=== PATIENT | female | born 1945 | race Caucasian/White ===

== ENCOUNTER → 2018-02-27 15:38 | Outpatient (CLI) | payer BC, MEDICARE, SELFPAY ==
--- NOTE | 2018-02-27 15:42 | MM_ITS ---
MM Dig screening mamm BI w/CAD CAD Screening COMPARISON: Digital mammograms with CAD 02/22/2016 and 02/23/2017 INDICATION: There is a history of breast cancer patient paternal grandmother diagnosed after menopause. There has been a previous biopsy on each breast for benign disease. TECHNIQUE: Standard CC and MLO images were obtained. R2 CAD reviewed. FINDINGS: Prominent diffuse fiber glandular densities are seen throughout both breasts. There are 2 mole markers right breast and a single mole marker left breast. There is a biopsy clip in each breast. There is moderate post biopsy scarring associated with a biopsy clip right breast. There is no new or suspicious lesion in either breast and no suspicious microcalcifications. IMPRESSION: Moderately dense parenchymal pattern with moderate post biopsy scarring right breast which is stable and no suspicious lesion seen BI-RADS Category: 2 Benign Finding(s) RECOMMENDED FOLLOW-UP: 1YR - 1 YEAR FOLLOW-UP (A letter has been sent to the patient regarding results of the study.)
== END ==
PROVIDERS: PCP Family Medicine; Visit Provider Obstetrics & Gynecology
DX: Z12.31 Encounter for screening mammogram for malignant neoplasm of breast (principal); Z01.419 Encounter for gynecological examination (general) (routine) without abnormal findings
CPT/HCPCS: 77067

== ENCOUNTER → 2018-04-23 14:43 | Outpatient (CLI) | payer BC, MEDICARE, SELFPAY ==
--- NOTE | 2018-04-23 14:45 | CA_ITS ---
PROCEDURE: 2-D M-mode and color Doppler study INDICATIONS FOR THE TEST: Chest pain COPD Heart Murmur Tobacco Smoking Palpitations Fatigue Syncope Edema Hypertension+Diabetes Mellitus Rheumatic Fever SOB+ROBERTS Obesity Hyperlipidemia+ Family History HD Additional History tachycardia PATIENT INFORMATION HEIGHT: 66 WEIGHT:190 GENDER: Female B/P:113/71 2-D/M-MODE INTERPRETATION: 2-D MEASUREMENTS OBSERVED VALUES IN CMS Right Ventricular Dimension (RVDd) 1.5 Interventricular Septum (Thickness)(IVsd) 0.9 Left Ventricular Internal Dimensions(LVIDd) 5.4 Left Ventricular Posterior Wall (Thickness)(LVPWd) 0.8 Aortic Root 2.9 Aortic Cusp Separation 1.9 Left Atrial Dimensions (LAD) 3.6 2D 1. Left atrium is mildly enlarged, left ventricle is normal size, mild concentric left ventricular hypertrophy, visually estimated ejection fraction 55% with no regional wall motion abnormality. 2. The right atrium and right ventricle are mildly enlarged with normal contractility. 3. The aortic valve is minimally thickened and calcified leaflet continue to display good mobility. 4. The mitral and tricuspid valve are grossly normal. 5. The pulmonic valve is poorly visualized. 6. No significant pericardial effusion noted. DOPPLER INTERROGATION: Doppler interrogation of the aortic, mitral and tricuspid valvular presence of mild mitral and tricuspid regurgitation, tricuspid regurgitation jet velocity is inadequate for calculation of the right ventricular systolic pressure, grade 1 diastolic dysfunction seen without tissue Doppler evidence of raised left atrial pressure. CONCLUSION: 1. Mildly enlarged left atrium, normal left ventricular size, mild concentric left ventricular hypertrophy, visually estimated ejection fraction 55% with no regional wall motion abnormality, grade 1 diastolic dysfunction seen without tissue Doppler evidence of raised left atrial pressure. 2. Mild mitral and tricuspid regurgitation 3. No significant pericardial effusion noted.
== END ==
PROVIDERS: PCP Family Medicine; Visit Provider Internal Medicine
DX: R00.0 Tachycardia, unspecified (principal); R06.02 Shortness of breath
CPT/HCPCS: 93306

== ENCOUNTER → 2018-07-19 13:39 | Outpatient (CLI) | payer BC, MEDICARE, SELFPAY ==
--- NOTE | 2018-07-19 13:47 | XR_ITS ---
XR knee LT 4V HISTORY: ITS.REASON: knee pain/ 4 view weightbearing ORDERING PHYSICIAN: Ebonie Mclaughlin MD PATIENT AGE: 72 years COMPARISON: 06/15/2011 FINDINGS: There are moderate to severe osteoarthritic changes of the medial compartment with loss of the joint space and osteosclerosis. There is mild comparison angulation of the tibia with mild lateral tibial subluxation. There are mild osteoarthritic changes of the patellofemoral joint. No fracture or dislocation. No lytic or blastic change. There is some mild mixed sclerosis and lucency of the medial femoral condyle subarticular region IMPRESSION: Severe osteoarthritis of the medial compartment mainly manifested by loss of joint space which has progressed compared to the previous exam
--- NOTE | 2018-07-19 13:47 | XR_ITS ---
XR knee RT 4V HISTORY: Knee pain ITS.REASON: knee pain/weigh bearing views ORDERING PHYSICIAN: Ebonie Mclaughlin MD PATIENT AGE: 72 years COMPARISON: None FINDINGS: There are severe osteoarthritic changes of the medial compartment with loss of joint space. There is mild osteosclerosis of the tibial plateau medially and there is mild lateral tibial subluxation as well as varus angulation of the tibia. Minimal osteoarthritic change of the medial compartment and patellofemoral joint. 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
== END ==
PROVIDERS: PCP Family Medicine; Visit Provider Orthopaedic Surgery
DX: M25.561 Pain in right knee (principal); M25.562 Pain in left knee
CPT/HCPCS: 73564

== ENCOUNTER → 2018-07-29 12:38 | Outpatient (CLI) | payer BC, MEDICARE, SELFPAY ==
--- NOTE | 2018-07-29 13:02 | XR_ITS ---
XR foot wt bearing RT 3V HISTORY: Foot pain burning and stinging ITS.REASON: 3 views WB ORDERING PHYSICIAN: Ebonie Mclaughlin MD PATIENT AGE: 72 years COMPARISON: None FINDINGS: There is mild hallux valgus with mild osteoarthritic change of the first metatarsophalangeal joint with bunion formation and bony hypertrophy of the distal aspect of the first metatarsal. There is mild pes planus. There is a small calcaneal spur. No fracture or dislocation. No lytic or blastic change. IMPRESSION: 1. Hallux valgus with bunion formation and osteoarthritis of the first MTP joint 2. Pes planus
== END ==
PROVIDERS: PCP Family Medicine; Visit Provider Orthopaedic Surgery
DX: M79.671 Pain in right foot (principal)
CPT/HCPCS: 73630

== ENCOUNTER → 2019-02-26 06:37 | Outpatient (CLI) | payer BC, MEDICARE, SELFPAY ==
--- NOTE | 2019-02-26 | CA_ITS ---
APPROVED REPORT Exam: Pharmacologic Technologist: Sarah Wheeler Ht: 5 ft 6 in Wt: 189 lbs BSA: 1.95 m2 HR: 63 bpm BP: 137/82 mmHg Indications: Fatigue, Stenosis (bilat), Shortness of Breath Medical History Medications: Aspirin,,,,, Simvastatin,,,,, Multi Vitamin,,,,, Estradiol,,,,, MeLOXICAM,,,,, BisOPROLOL,,,,, Stress Test Details Test: LEXISCAN HR Resting HR: 71 bpm Max Heart Rate (APMHR): 149 bpm Max HR Achieved: 100 bpm Target HR (85% APMHR): 126 bpm % of APMHR: 67 Recovery HR: 82 bpm BP Resting BP: 137.0/82.0 mmHg Max BP: 153.0/83.0 mmHg Recovery BP: 134.0/76.0 mmHg ECG Clinical Exercise duration: 04:02 min Highest Stage Achieved: Exercise capacity: 1.0 METs Stress ECG Conclusion Resting ECG: Normal sinus rhythm, PAC, right axis deviation. Symptoms: Chest heaviness, malaise. Arrhythmias/Ectopy: None ST-T Changes: NS ST-T changes inferiorly and laterally. Conclusion: Unremarkable Lexiscan stress. Myoview images reported separately. Test Summary . . Myoview Injected . . . . Stop exercise at 04:02 . . . . Electronically signed by : Sharad Tobin, 02/27/2019 15:19:17
--- NOTE | 2019-02-26 06:37 | CA_ITS ---
APPROVED REPORT Center Administrator: Nicki Hicks RVT Laterality: Bilateral Study Quality: Good Indications: dizziness Risk Factors Hypertension: Hyperlipidemia Doppler Spectral Velocity Analysis ECA (R) 63.30/8.20 cm/s ECA (L) 145.00/42.20 cm/s dICA (R) 82.00/26.00 cm/s dICA (L) 77.50/23.70 cm/s Moy (R) 63.40/19.00 cm/s Moy (L) 93.40/29.40 cm/s pICA (R) 71.10/20.60 cm/s pICA (L) 61.20/19.50 cm/s dCCA (R) 79.70/14.60 cm/s dCCA (L) 76.30/13.70 cm/s pCCA (R) 66.00/17.10 cm/s pCCA (L) 78.80/13.70 cm/s Vert (R) 47.00/16.40 cm/s Vert (L) 50.20/11.90 cm/s ICA/CCA 1.03 ICA/CCA 1.22 Findings Study suggests less than 20% stenosis of the bilateral internal cartoid arteries unchanged from the 02/22/17 study. Tortuous cartoid arteries bilateral. Antegrade flow seen bilateral vertebral arteries. Bilateral thyroid nodules seen. Conclusion No increased velocities to suggest hemodynamically significant stenosis in either internal carotid artery. Electronically signed by : Italo Dickson MD 02/28/2019 17:12:01
--- NOTE | 2019-02-26 06:43 | NM_ITS ---
APPROVED REPORT Exam: Nuclear Stress Test Indication: SOB, Fatigue, Dizziness, HTN, Family history Patient Location: Outpatient Stress Tech: Sarah Wheeler NM Tech:Dori Nunez, ARRT, RT (R)(N) Ht: 5 ft 6 in Wt: 189 lbs Bra Size: 38C BSA: 1.95 m2 BMI: 30.5 History: SOB, Fatigue, Dizziness, HTN, Family history Procedure: Patient received a 0.4 mg of intravenous Lexiscan, resting heart rate 63 bpm, resting blood pressure 137/82 mmHg, with Lexiscan maximum heart rate achived was 98 bpm which is Less than 85 % of the maximum predicted heart rate and blood pressure was 148/84 mmHg. Electrocardiogram Resting electrocardiogram showed sinus rhythm, with Lexiscan less than 1.[address] segment depression noted from the baseline EKG. The EKG portion of the Lexiscan Myoview is nondiagnostic. Cardiac Stress and Resting SPECT Images: Cardiac Stress and Resting SPECT images were obtained using technetium 99m Myoview 32.2 mCi stress and 10.80 mCi at rest. Gated SPECT with analysis of segmental wall motion and calculation of the ejection fraction also done. Cardiac stress and resting SPECT images show mild fixed defect in the anterior wall with normal contracted gated SPECT is likely secondary to soft tissue attenuation, no reversible ischemia seen, computer derived ejection fraction is over 65% with no regional wall motion abnormality, right ventricle is normal size and contractility. Conclusion: 1. The EKG portion of the Lexiscan Myoview is nondiagnostic. 2. No scintigraphic evidence of reversible ischemia seen, computer derived ejection fraction is over 65% with no regional wall motion abnormality, right ventricle is normal size and contractility. 3. Normal Lexiscan Myoview study. Electronically signed by : Sharad Tobin, 02/27/2019 15:21:33
--- NOTE | 2019-02-26 07:49 | HMH.ITSHM ---
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 []BISOPROLOL MELOXICAM SIMVASTATIN ESTRADIOL ASA MULTIVITAMIN
== END ==
PROVIDERS: PCP Family Medicine; Visit Provider Urology
DX: I65.23 Occlusion and stenosis of bilateral carotid arteries (principal); I10 Essential (primary) hypertension; R42 Dizziness and giddiness; R53.83 Other fatigue
CPT/HCPCS: 78452; 93017; 93880; A9502; J2785

== ENCOUNTER → 2019-03-06 08:17 | Outpatient (CLI) | payer BC, MEDICARE, SELFPAY ==
--- NOTE | 2019-03-06 08:18 | MM_ITS ---
PROCEDURE: MM DIG SCREENING MAMM BI W/CAD CLINICAL INDICATION: screening mammogram There is a history of breast cancer in patient's paternal grandmother diagnosed after menopause. There has been a previous biopsy on each breast for benign disease. COMPARISON: [facility] DIG MAMM-SCREEN TOO from 02/22/2016 [facility] DIG MAMM-SCREEN TOO W/CAD from 02/23/2017 [facility] MM Dig screening mamm BI w/CAD from 02/27/2018 TECHNIQUE: Standard CC and MLO images were obtained. R2 CAD reviewed. FINDINGS: Prominent diffuse somewhat heterogenic fibroglandular densities are seen throughout both breasts. Findings are fairly symmetrical bilaterally. There is a biopsy clip in each breast. There are mole markers on each breast. There is no suspicious lesion and no suspicious microcalcifications. IMPRESSION: Diffusely dense parenchymal pattern with no suspicious lesions seen BI-RAD Category: 2 Benign Finding(s) FOLLOW-UP: 1YR 1 Year Follow-up (A letter has been sent to the patient regarding results of the study.) Dictated by: Dr. Talon Hugo MD 03/11/2019 10:[address] Talon Hugo MD in [place] 03/11/2019 10:37
== END ==
PROVIDERS: PCP Family Medicine; Visit Provider Obstetrics & Gynecology
DX: Z12.31 Encounter for screening mammogram for malignant neoplasm of breast (principal)
CPT/HCPCS: 77067

== ENCOUNTER → 2019-03-10 15:04 | Outpatient (CLI) | payer BC, MEDICARE, SELFPAY ==
--- NOTE | 2019-03-10 15:05 | XR_ITS ---
PROCEDURE: XR DEXA AXIAL SKELETON CLINICAL HISTORY: post menopausal, arthritis in both knees COMPARISON: BONE3 BONE DENSITOMETRY(HIP:LT SPINE from 03/01/2015 FINDINGS: The average BMD lumbar spine is 1.460 g per cm squared and the T-score is 3.8. The previous T-score a DEXA scan 03/01/2015 was 3.1. Bilateral hips: The total BMD right hip is 0.992 grams/centimeter sq with a T-score 0.4 and the right femoral neck is 0.812 grams/centimeter sq with a T-score of -0.3. The total BMD left hip is 0.893 g per cm sq with a T-score -0.4 and the left femoral neck is 0.844 grams/centimeter squared with T-score 0.0 IMPRESSION: Normal exam lumbar spine with slight interval improvement from previous study, normal values for bilateral hips slight interval improvement from the previous study Dictated by: Dr. Talon Hugo MD 03/11/2019 09:[address] Talon Hugo MD in [place] 03/11/2019 09:11
== END ==
PROVIDERS: PCP Family Medicine; Visit Provider Obstetrics & Gynecology
DX: Z78.0 Asymptomatic menopausal state (principal)
CPT/HCPCS: 77080

== ENCOUNTER → 2019-04-22 14:08 | Outpatient (POV) | payer BC, MEDICARE, SELFPAY | PROVIDERS: Visit Provider Dermatology | DX: Z00.00 Encounter for general adult medical examination without abnormal findings (principal) ==

== ENCOUNTER → 2019-09-22 14:21 | Outpatient (CLI) | payer BC, MEDICARE, SELFPAY ==
[2019-09-22 18:41] LABS: Coronavirus 19 IgG Antibody Negative (Negative); Coronavirus 19 IgM Antibody Negative (Negative)
== END ==
PROVIDERS: Visit Provider Surgery
DX: Z01.818 Encounter for other preprocedural examination (principal)
CPT/HCPCS: 36415; 86328

== ENCOUNTER 2019-09-23 08:38 | Day surgery (SDC) | payer BC, MEDICARE, SELFPAY ==
[2019-09-19 12:19] VITALS: BMI 31.4
[2019-09-23 08:58] VITALS: BP 142/78; PULSE 81; RESP 16; TEMP 36.6; O2SAT 98
--- NOTE | 2019-09-23 09:05 | HMH.ANESCL ---
[facility] Anesthesia Checklist - Patient Identification Patient Identification: Arm Band, Verbal (Name & ) - Structural Data Admitted From: Home Planned Operative Procedure/s: colon Consent for Planned Operative Procedure(s) Verified: Yes Verified Documents: History and Physical - NPO Status Verified Time NPO: 00:00 - Chart Verification Results Verified: CBC, BMP - Additional verifications Patient : No Anesthesia Reactions: No Hx Blood Transfusions: No Blood Transfusion Reaction: No Cephalosporin Allergy: No Previous Colonoscopy: Yes - Cardiovascular Assessment Heart Sounds: S1 & S2 Pulse Strength: Baseline Pulse Rhythm: Regular Peripheral Edema: No - Airway Assessment C-Spine Mobility Assessed: Yes TMJ Mobility Assessed: Yes Dentition: Good Dentition - Neurological Assessment Level of Consciousness: Awake, Alert, Appropriate Hx Seizures: No Numbness or tingling in extremities: No - Anesthesia Plan Anesthesia Risk discussed: Yes Anesthesia Plan: Verified ASA Class: II Anesthesia Type: MAC [facility] History I have reviewed the patient's past medical history: Yes Medical History: Reports:: Hyperlipidemia, Hypertension, Lung Disease Denies:: Cancer, Diabetes Mellitus Type 1, Diabetes Mellitus Type 2, Internal Pacemaker, MRSA, Seizures *Have you ever received a pneumonia vaccine?: No *Have you received a flu vaccine this season?: No Other Medical History: Reports: Arthritis, Other Anesthesia experience/problems:: none Laterality Cases: Bilateral: Tonsillectomy Other Surgeries: Yes: Appendectomy, Cardiac Catheterization, Colonoscopy, Hysterectomy-Total, Other. No: Pacemaker Amputation: No Fractures: No - *Social History Last grade of school completed: High school graduate Smoking Status: Never smoker Alcohol Intake: never Substance Use Type: denies use *Occupational Status:: employed Housing: house Household Members: spouse *Travel in the last 8 weeks: None Family Hx:: Cancer, Coronary Artery Disease, Diabetes
[2019-09-23 09:15] VITALS: O2SAT 97
[2019-09-23 09:51] VITALS: BP 111/67; PULSE 69; RESP 16; TEMP 36.4; O2SAT 96
--- NOTE | 2019-09-23 09:55 | P.PCN_ITS ---
- Procedure: Date: 09/23/19 Procedure Performed:: Colonoscopy with polypectomy by biopsy Indications:: Patient presents for her repeat colonoscopy. She is a very pleasant 74-year-old white female who is normally cared for by Dr. Remy. 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 I had performed colonoscopy on her in March 2015 at which time she had a tubular adenoma removed I had recommended a follow-up colonoscopy in 3 years which I performed on 04/16/18. She had a subtle mucosal irregularity in the cecum which was removed in a piecemeal fashion using cold snare and pathology returned as tubular adenoma. She also had a subtle faint lesion in the ascending colon which was moved with hot snare and this returned as tubular adenoma well. There was a diminutive polyp in the sigmoid colon which was proven to be a tubular adenoma as well. Given her family history and subtle apparent ridge polyps which would difficult to visualize endoscopically I recommend a repeat colonoscopy in 1 year. Performing Provider:: Jayden Panda MD Referring Provider:: Errol Remy MD Sedation:: Propofol Procedure:: Patient was taken to endoscopy procedure room. She was positioned in a lateral decubitus position. Adequate intravenous sedation was achieved with anesthesia titration of propofol. Variable stiffness Olympus colonoscope was inserted via the anus. It was advanced to the cecum with some minor difficulty due to floppiness of the sigmoid colon. Ileocecal valve and appendiceal orifice were clearly identified. Colonic preparation was good. Colonoscope was slowly withdrawn through the colon with careful surveillance. There were no notable polyps or lesions. She did have some rare diverticuli. Within the rectum there is a subtle polyp, possibly hyperplastic, removed with cold biopsy forceps. Retroflexion within the rectum revealed no evidence of any pathologic internal hemorrhoids. Colonoscope was withdrawn. Findings:: Rare diverticulosis Subtle rectal polyp, presumably hyperplastic Recommendations:: Likely repeat colonoscopy 2 years given previous early interval development of adenomatous polyps and family history Complications:: None immediate Estimated blood obtained (mL): 1
[2019-09-23 10:01] VITALS: BP 121/63; PULSE 63; RESP 16; O2SAT 97
[2019-09-23 10:11] VITALS: BP 114/83; PULSE 64; RESP 16; O2SAT 98
[2019-09-23 10:21] VITALS: BP 104/69; PULSE 62; RESP 16; TEMP 36.4; O2SAT 97
== END 2019-09-23 10:43 | disposition home or self-care (01) ==
LOC: OUTP 08:39
PROVIDERS: PCP Family Medicine; Visit Provider Surgery
PROC: 0DJD8ZZ Inspection of Lower Intestinal Tract, Via Natural or Artificial Opening Endoscopic (ICD-10-PCS; CPT 45380; principal; 2019-09-23 09:30)
DX: Z12.11 Encounter for screening for malignant neoplasm of colon (principal); K62.1 Rectal polyp; Z80.0 Family history of malignant neoplasm of digestive organs; K57.30 Diverticulosis of large intestine without perforation or abscess without bleeding; Z86.010 Personal history of colon polyps; E78.5 Hyperlipidemia, unspecified; I10 Essential (primary) hypertension; Z90.89 Acquired absence of other organs; Z90.710 Acquired absence of both cervix and uterus; Z83.3 Family history of diabetes mellitus; Z82.49 Family history of ischemic heart disease and other diseases of the circulatory system; Z79.82 Long term (current) use of aspirin
CPT/HCPCS: 45380

== ENCOUNTER → 2019-11-15 10:58 | Outpatient (CLI) | payer BC, MEDICARE, SELFPAY ==
[2019-11-15 12:29] LABS: Chloride 103 mmol/L (98-107)
[2019-11-15 12:30] LABS: Potassium 4.8 mmoL/L (3.5-5.1); Sodium 138 mmol/L (136-145)
[2019-11-15 12:32] LABS: Alanine Aminotransferase 14 U/L (12-78); Albumin Level 3.6 g/dl (3.5-5.0); Albumin/Globulin Ratio 1.4 (1.1-1.8); Alkaline Phosphatase 79 U/L (38-126); Anion Gap 7.8 mEq/L (5-15); Aspartate Amino Transferase 28 U/L (14-36); Bilirubin,Total 0.7 mg/dl (0.2-1.3); Blood Urea Nitrogen 16 mg/dl (7-17); Carbon Dioxide 32 mmol/L (22.0-30.0); Estimated Glomerular Filt Rate 82 ml/min (>60); GFR (African American) 100 ML/MIN (>60); Globulin 2.6 g/dL (1.3-3.2); Total Protein,Serum 6.2 g/dl (6.3-8.2)
[2019-11-15 12:33] LABS: Calcium 9.4 mg/dl (8.4-10.2); Chol/HDL Ratio 2.4 (1-3.5); Cholesterol 163 mg/dl (140-200); Glucose 97 mg/dl (74-100); HDL Cholesterol 68 mg/dl (40-60); Triglycerides 77 mg/dl (30-150); VLDL Cholesterol 15 mg/dL (0-40)
[2019-11-15 12:44] LABS: Direct LDL Cholesterol 83.31 mg/dL (100-129)
[2019-11-15 12:50] LABS: T4 (Thyroxine) 10.9 ug/dl (5.53-11.0)
== END ==
PROVIDERS: Visit Provider Family Medicine
DX: I10 Essential (primary) hypertension (principal); E78.5 Hyperlipidemia, unspecified; E04.2 Nontoxic multinodular goiter
CPT/HCPCS: 36415; 80053; 80061; 84436; 84443

== ENCOUNTER 2019-11-17 09:42 | Emergency (ER) | payer BC, MEDICARE, SELFPAY ==
[2019-11-17 09:52] VITALS: BP 136/86; PULSE 105; RESP 18; TEMP 36.7; O2SAT 96; BMI 29.8
--- NOTE | 2019-11-17 10:04 | XR_ITS ---
PROCEDURE: XR CHEST PORTABLE CLINICAL HISTORY: cough COMPARISON: CR CXR CHEST(2 VIEWS-NOT PORTABLE) from 04/29/2016 FINDINGS: The cardiomediastinal silhouette and pulmonary vascularity are within normal limits. Increased markings are present in the right lower lobe and may only be due to summation density from the overlying soft tissues. Cannot exclude infiltrate in the right lower lobe. Upright PA and lateral chest may provide further evaluation. Cervical bone plate is present over lower cervical spine IMPRESSION: Nonspecific increased markings in the right lower lobe which may be due to infiltrate versus summation artifact Dictated by: Italo Dickson MD 11/17/2019 12:00 Italo Dickson MD in [place] 11/17/2019 12:00
[2019-11-17 10:08] VITALS: BP 123/79; PULSE 95; RESP 18; O2SAT 96
[2019-11-17 10:27] LABS: Basophils % 0.5 % (0.1-2.0); Eosinophils # 0.1 K/mm3 (0.0-0.4); Eosinophils % 0.8 % (0.1-12.0); Hematocrit 44.2 % (37.0-47.0); Hemoglobin 15.6 g/dL (12.2-16.2); Lymphocytes # 1.6 K/mm3 (0.7-4.5); Lymphocytes % 23.1 % (10-50); Mean Corpuscular HGB Conc 35.3 g/dL (31.8-35.4); Mean Corpuscular Hemoglobin 30.7 pg (27.0-31.2); Mean Corpuscular Volume 86.9 fl (81-99); Mean Platelet Volume 7.8 fl (7.4-10.4); Monocytes # 0.5 K/mm3 (0.1-1.0); Monocytes % 7.1 % (1.7-9.3); Neutrophils # 4.6 K/mm3 (1.8-7.8); Neutrophils % 68.5 % (37.0-80.0); Platelet Count 172 K/mm3 (142-424); Red Blood Count 5.09 M/mm3 (4.20-5.40); Red Cell Distribution Width 13.2 % (11.5-17.5); White Blood Count 6.7 K/mm3 (4.8-10.8)
[2019-11-17 10:36] LABS: Chloride 100 mmol/L (98-107)
--- NOTE | 2019-11-17 10:36 | ECG_ITS ---
APPROVED REPORT Exam: Resting ECG HR:89 bpm ECG Measurements Heart Rate [address] 134 P 56 QRSd 78 QRS 39 QT 358 T 77 QTc 435 <Conclusion> Normal sinus rhythm Cannot rule out Anterior infarct, age undetermined Abnormal ECG Electronically signed by : Jacob Carpenter, 11/19/2019 06:27:07
[2019-11-17 10:37] LABS: Potassium 3.8 mmoL/L (3.5-5.1); Sodium 137 mmol/L (136-145)
[2019-11-17 10:39] LABS: Alanine Aminotransferase 22 U/L (12-78); Aspartate Amino Transferase 35 U/L (14-36); Blood Urea Nitrogen 15 mg/dl (7-17); Creatinine Clearance Estimated 67 mL/min (50-200); Estimated Glomerular Filt Rate 82 ml/min (>60); GFR (African American) 100 ML/MIN (>60)
[2019-11-17 10:40] LABS: Albumin Level 4.1 g/dl (3.5-5.0); Albumin/Globulin Ratio 1.3 (1.1-1.8); Alkaline Phosphatase 84 U/L (38-126); Anion Gap 12.8 mEq/L (5-15); Bilirubin,Total 0.9 mg/dl (0.2-1.3); Calcium 9.7 mg/dl (8.4-10.2); Carbon Dioxide 28 mmol/L (22.0-30.0); Globulin 3.2 g/dL (1.3-3.2); Glucose 111 mg/dl (74-100); Total Protein,Serum 7.3 g/dl (6.3-8.2)
[2019-11-17 10:45] VITALS: BP 124/74; PULSE 92; RESP 20; O2SAT 95
[2019-11-17 10:49] LABS: NT Pro Brain Natriuretic Pep. 265 pg/mL (0-125)
[2019-11-17 10:54] LABS: Troponin I < 0.01 ng/ml (0.00-0.034)
[2019-11-17 11:11] LABS: Thyroid Stimulating Hormone 0.88 uIU/mL (0.465-4.68)
--- NOTE | 2019-11-17 12:09 | HMH.EDWEAK ---
ED Disposition Clinical Impression: Tremor Medication reaction Qualifiers: Encounter type: initial encounter Qualified Code(s): T50.905A - Adverse effect of unspecified drugs, medicaments and biological substances, initial encounter Disposition: Home, Self-Care Condition on Discharge: Good Instructions: DI for Benign Essential Tremor Referrals: Rodney Remy MD [Primary Care Provider] - - Critical Care Critical Care Time: No Attestation: On 11/17/19, the high probability of a clinically significant, sudden or life threatening deterioration of the following system(s) required my full and direct attention, intervention and personal management. The time I documented below is in addition to time spent performing reported procedures but includes the following listed in this critical care notation. Medical Decision Making - Medical Records Medical records reviewed: Yes: I reviewed the patient's medical records. - Devin Inquiry Pt receiving controlled substance: No Vital Signs: 11/17/19 09:52 11/17/19 10:08 11/17/19 10:45 Temperature 98.0 F Temperature Source Oral Pulse Rate [Radial] 105 H 95 H 92 H Respiratory Rate 18 18 20 Blood Pressure [Right Arm] 136/86 123/79 124/74 Blood Pressure Mean [Right Arm] 102 93 90 Blood Pressure Source [Right Arm] Automatic Cuff Automatic Cuff Automatic Cuff Blood Pressure Position [Right Arm] Sitting Sitting Sitting 02 Sat by Pulse Oximetry 96 96 95 Oxygen Delivery Method Room Air Room Air Room Air - Lab Data Lab Results 11/17/19 09:17: WBC 6.7, RBC 5.09, Hgb 15.6, Hct 44.2, MCV 86.9, MCH 30.7, MCHC 35.3, RDW 13.2, Plt Count 172, MPV 7.8, Neut % (Auto) 68.5, Lymph % (Auto) 23.1, [place] % (Auto) 7.1, Eos % (Auto) 0.8, Baso % (Auto) 0.5, Neut # (Auto) 4.6, Lymph # (Auto) 1.6, [place] # (Auto) 0.5, Eos # (Auto) 0.1, Baso # (Auto) 0.0 11/17/19 09:17: Sodium 137, Potassium 3.8 D, Chloride 100, Carbon Dioxide 28, Anion Gap 12.8, BUN 15, Creatinine 0.70, Estimated Creat Clear 67, Estimated GFR 82, Est GFR ( Amer) 100, Glucose 111 H, Calcium 9.7, Total Bilirubin 0.9, AST 35, ALT 22 D, Alkaline Phosphatase 84, Troponin I < 0.01, NT-Pro-B Natriuret Pep 265 H, Total Protein 7.3, Albumin 4.1, Globulin 3.2, Albumin/Globulin Ratio 1.3, TSH 0.88 Result diagrams: 11/17/19 09:17 11/17/19 09:17 Orders (Tests/Meds): ORDERS Category Date Time Status Troponin I Q3H Lab 11/17/19 13:15 Ordered Troponin I Q3H Lab 11/17/19 16:15 Ordered EKG Request [ECG Request by /Carlos] Stat Y 11/17/19 10:04 Ordered - Radiology Data #1 Image(s): Chest Preliminary Findings: Normal/NAD - ECG Data Tracing #2 Normal ventricular rate 89 bpm, normal ID interval. Normal QTC. Sinus rhythm with nonspecific changes ECG initial impression date: 11/17/19 ECG initial impression time: 10:40 - Reevaluation(s) Time: 12:12 Reevaluation #1: On reevaluation, patient is feeling better. Repeat neurologic exam is normal. Patient's work-up was benign. She needs to follow-up with her PCP in 24 hours. Given strict return precautions. Verbalized understanding. Medical Decision Narrative: 74-year-old female presented to the emergency department with tremors and weakness. Patient did have acute reaction after taking medication. I do believe her symptoms are consistent with medication reaction. She is not having any tremors at this time. Her neurologic exam is normal. Work-up initiated. Weakness HPI - General Chief complaint: Weakness Stated complaint: after taking meds, shakey, chills, weak Time Seen by Provider: 11/17/19 09:55 Mode of Arrival: Ambulatory Limitations: No Limitations Description of Symptoms (Recalled from ER Triage Doc. by RN): States she took her routine nighttime medication on Sunday and added a Tylenol PM to get rid of a headache. After that she began to get dizzy and shakey. States it continued until yesterday and got a little better. Con
[2019-11-17 12:42] VITALS: BP 139/82; PULSE 93; RESP 14; TEMP 37.2; O2SAT 95
== END 2019-11-17 12:43 | disposition home or self-care (01) ==
PROVIDERS: Emergency Provider Emergency Medicine; PCP Family Medicine
DX: T50.905A Adverse effect of unspecified drugs, medicaments and biological substances, initial encounter (principal); R25.1 Tremor, unspecified; I10 Essential (primary) hypertension; R51 Headache; E78.5 Hyperlipidemia, unspecified; Z90.49 Acquired absence of other specified parts of digestive tract; Z90.710 Acquired absence of both cervix and uterus
CPT/HCPCS: 71045; 80053; 83880; 84443; 84484; 85025; 93005; 99283

== ENCOUNTER → 2020-03-08 14:20 | Outpatient (CLI) | payer BC, MEDICARE, SELFPAY ==
--- NOTE | 2020-03-08 14:20 | MM_ITS ---
PROCEDURE: MM DIG SCREENING MAMM BI W/CAD Digital Breast Tomosynthesis Included CLINICAL INDICATION: screening There is a history of breast cancer in the patient's paternal grandmother diagnosed after menopause. There have been previous biopsies on each breast for benign disease. COMPARISON: MG DMSB DIG MAMM-SCREEN TOO W/CAD from 02/23/2017 [facility] MM Dig screening mamm BI w/CAD from 02/27/2018 US CA echo doppler complete from 04/23/2018 MG MM DIG SCREENING MAMM BI W/CAD from 03/06/2019 TECHNIQUE: Standard CC and MLO images and 3D Tomosynthesis was obtained. R2 CAD reviewed. FINDINGS: Prominent diffuse heterogenic fibroglandular densities are seen throughout both breasts. There are mole markers on each breast. There is a biopsy clip in each breast. Johnathan images are most helpful with this type of dense breast parenchyma. There is moderate post biopsy scarring central portion right breast. There are few scattered benign-appearing microcalcifications in each breast some of which may be cutaneous. There is no new or suspicious lesion in either breast and no suspicious microcalcifications. IMPRESSION: Stable diffuse heterogenic breast parenchyma with no suspicious lesions seen BI-RAD Category: 2 Benign Finding(s) FOLLOW-UP: 1YR 1 Year Follow-up (A letter has been sent to the patient regarding results of the study.) Dictated by: Dr. Talon Hugo MD 03/11/2020 16:28 Dr. Talon Hugo MD in [place] 03/11/2020 16:28
== END ==
PROVIDERS: PCP Family Medicine; Visit Provider Obstetrics & Gynecology
DX: Z12.31 Encounter for screening mammogram for malignant neoplasm of breast (principal)
CPT/HCPCS: 77063; 77067

== ENCOUNTER → 2020-04-17 08:22 | Outpatient (CLI) | payer BC, MEDICARE, SELFPAY ==
[2020-04-17 09:08] LABS: Chloride 104 mmol/L (98-107)
[2020-04-17 09:09] LABS: Potassium 4.5 mmoL/L (3.5-5.1); Sodium 141 mmol/L (136-145)
[2020-04-17 09:11] LABS: Alanine Aminotransferase 17 U/L (12-78); Alkaline Phosphatase 101 U/L (38-126); Anion Gap 7.5 mEq/L (5-15); Aspartate Amino Transferase 34 U/L (14-36); Bilirubin,Total 0.6 mg/dl (0.2-1.3); Blood Urea Nitrogen 16 mg/dl (7-17); Carbon Dioxide 34 mmol/L (22.0-30.0); Cholesterol 191 mg/dl (140-200); Estimated Glomerular Filt Rate 82 ml/min (>60); GFR (African American) 100 ML/MIN (>60); Triglycerides 90 mg/dl (30-150); VLDL Cholesterol 18 mg/dL (0-40)
[2020-04-17 09:12] LABS: Albumin Level 4.4 g/dl (3.5-5.0); Albumin/Globulin Ratio 1.5 (1.1-1.8); Calcium 10.1 mg/dl (8.4-10.2); Chol/HDL Ratio 2.5 (1-3.5); Glucose 105 mg/dl (74-100); HDL Cholesterol 77 mg/dl (40-60); Total Protein,Serum 7.4 g/dl (6.3-8.2)
[2020-04-17 09:23] LABS: Direct LDL Cholesterol 88.06 mg/dL (100-129)
[2020-04-17 09:29] LABS: Free T4 (Free Thyroxine) 1.05 ng/dl (0.78-2.19)
[2020-04-17 09:43] LABS: Thyroid Stimulating Hormone 1.39 uIU/mL (0.465-4.68)
== END ==
PROVIDERS: Visit Provider Family Medicine
DX: I10 Essential (primary) hypertension (principal); E04.2 Nontoxic multinodular goiter; E78.5 Hyperlipidemia, unspecified
CPT/HCPCS: 36415; 80053; 80061; 84439; 84443

== ENCOUNTER → 2020-06-22 15:45 | Outpatient (POV) | payer BC, MEDICARE, SELFPAY | PROVIDERS: Visit Provider Dermatology | DX: Z00.00 Encounter for general adult medical examination without abnormal findings (principal) ==

== ENCOUNTER → 2020-12-21 14:11 | Outpatient (POV) | payer BC, MEDICARE, SELFPAY | PROVIDERS: Visit Provider Dermatology | DX: Z00.00 Encounter for general adult medical examination without abnormal findings (principal) ==

== ENCOUNTER → 2021-03-10 10:56 | Outpatient (CLI) | payer BC, MEDICARE, SELFPAY ==
--- NOTE | 2021-03-10 10:56 | MM_ITS ---
PROCEDURE INFORMATION: Exam: MG Bilateral Screening 3D Mammography Exam date and time: 03/10/2021 10:56 AM Age: 75 years old Clinical indication: Encounter for screening mammogram for malignant neoplasm of breast TECHNIQUE: Imaging protocol: Bilateral screening tomosynthesis and 2D mammography including computer-aided detection (CAD) when performed. COMPARISON: 1. MG MM DIG SCREENING MAMM BI W/CAD 03/08/2020 2:28 PM 2. MG MM DIG SCREENING MAMM BI W/CAD 03/06/2019 8:32 AM FINDINGS: MAMMOGRAPHY: Breast composition: The breast tissue is composed of scattered areas of fibroglandular density. Mass: None. Architectural distortion: None. Calcifications: No suspicious calcifications. Asymmetric density: None. Skin thickening: None. Axillary adenopathy: None. IMPRESSION: No mammographic evidence of malignancy. Annual screening is recommended unless otherwise clinically indicated. ASSESSMENT: BI-RADS Category 1: Negative
== END ==
PROVIDERS: PCP Family Medicine; Visit Provider Obstetrics & Gynecology
DX: Z12.31 Encounter for screening mammogram for malignant neoplasm of breast (principal)
CPT/HCPCS: 77063; 77067

== ENCOUNTER → 2021-10-05 13:49 | Outpatient (CLI) | payer BC, MEDICARE, SELFPAY | PROVIDERS: PCP Family Medicine; Visit Provider Surgery | DX: Z01.812 Encounter for preprocedural laboratory examination (principal); Z20.822 Contact with and (suspected) exposure to COVID-19; Z12.11 Encounter for screening for malignant neoplasm of colon | CPT/HCPCS: C9803; U0003; U0005 ==

== ENCOUNTER 2021-10-07 06:26 | Day surgery (SDC) | payer BC, MEDICARE, SELFPAY ==
[2021-10-05 08:21] VITALS: BMI 32.5
[2021-10-07 06:46] VITALS: BP 143/73; PULSE 108; RESP 18; TEMP 36.9; O2SAT 18
--- NOTE | 2021-10-07 07:09 | P.PN_ITS ---
[facility] Anesthesia Checklist - Patient Identification Patient Identification: Arm Band - Structural Data Admitted From: Home Planned Operative Procedure/s: Colonoscopy Consent for Planned Operative Procedure(s) Verified: Yes - NPO Status Verified Time NPO: 04:30 (Prep) - Additional verifications Anesthesia Reactions: No Hx Blood Transfusions: No Blood Transfusion Reaction: No - Airway Assessment C-Spine Mobility Assessed: Yes TMJ Mobility Assessed: Yes Dentition: Good Dentition - Neurological Assessment Level of Consciousness: Awake Hx Seizures: No Numbness or tingling in extremities: No - Anesthesia Plan Anesthesia Risk discussed: Yes Anesthesia Plan: Verified ASA Class: II Anesthesia Type: MAC [facility] History I have reviewed the patient's past medical history: Yes Medical History: Reports:: Arrhythmia, Hyperlipidemia, Hypertension Denies:: Cancer, Diabetes Mellitus Type 1, Diabetes Mellitus Type 2, Internal Pacemaker, MRSA, Seizures *Have you ever received a pneumonia vaccine?: No *Have you received a flu vaccine this season?: No Other Medical History: Reports: Arthritis, Other. Denies: Blood Transfusion Reaction Anesthesia experience/problems:: None Laterality Cases: Right: Lumpectomy, Bilateral: Tonsillectomy Other Surgeries: Yes: Appendectomy, Cardiac Catheterization, Colonoscopy, Hysterectomy-Total, Other. No: Pacemaker Amputation: No Fractures: No - *Social History Last grade of school completed: High school graduate Smoking Status: Never smoker Alcohol Intake: never Substance Use Type: denies use *Occupational Status:: other Housing: house Household Members: spouse *Travel in the last 8 weeks: None Family Hx:: Cancer, Coronary Artery Disease, Diabetes
[2021-10-07 07:18] VITALS: O2SAT 96
--- NOTE | 2021-10-07 07:54 | HMH.SCOPE ---
- Procedure: Date: 10/07/21 Patient Date of :: 1945 Procedure Performed:: Colonoscopy with biopsy Indications:: Patient presents for follow-up colonoscopy. 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 She has a family history of colon cancer in her father at age 72. I had performed colonoscopy on her in March 2015 at which time she had a tubular adenoma. Due to family history and adenomatous polyp she underwent repeat colonoscopy April 2018 at which times there was a subtle area in the cecum which was removed which actually returned as a tubular adenoma and she had 2 additional tubular adenomas as well. Therefore recommend follow-up colonoscopy in short interval given the interval development of polyps and she had a colonoscopy performed on 09/23/2019. There was a rectal polyp removed which was hyperplastic. Performing Provider:: Jayden Panda MD Referring Provider:: Errol Remy Sedation:: MAC sedation Procedure:: Patient was taken to endoscopy procedure room and positioned in lateral decubitus position. Adequate intravenous sedation was achieved with anesthesia titration of propofol. Variable stiffness Olympus colonoscope was inserted via the anus. Is advanced to the cecum with some minor difficulty due to tortuosity and redundancy of the sigmoid colon. Ileocecal valve and appendiceal orifice were identified. Due to prior history biopsy was obtained within the appendiceal orifice to rule out adenomatous change. Colonic preparation was good although there was some particulate liquid stool within the colon which was suctioned free. Colonoscope was slowly withdrawn to the colon with careful surveillance. She had sigmoid diverticuli. In the rectosigmoid region there were a couple of hyperplastic appearing subtle polyps removed with biopsy forceps. Retroflexion within the rectum revealed nonpathologic internal hemorrhoids. Colonoscope was withdrawn. Findings:: Sigmoid diverticulosis Hyperplastic appearing rectosigmoid polyps Recommendations:: Follow-up colonoscopy pending pathology. Likely 3 to 5 years. If no adenomatous component likely 5 years. Complications:: None immediately apparent Estimated blood obtained (mL): 1
[2021-10-07 07:57] VITALS: BP 120/63; PULSE 104; RESP 16; TEMP 36.1; O2SAT 95
[2021-10-07 08:07] VITALS: BP 151/87; PULSE 84; RESP 16; TEMP 36.1; O2SAT 97
[2021-10-07 08:17] VITALS: BP 166/99; PULSE 80; RESP 18; TEMP 36.1; O2SAT 100
[2021-10-07 08:36] VITALS: BP 158/66; PULSE 79; RESP 18; TEMP 36.3; O2SAT 100
== END 2021-10-07 08:36 | disposition home or self-care (01) ==
LOC: OUTP 06:27
PROVIDERS: PCP Family Medicine; Visit Provider Surgery
PROC: 0DJD8ZZ Inspection of Lower Intestinal Tract, Via Natural or Artificial Opening Endoscopic (ICD-10-PCS; CPT 45380; principal; 2021-10-07 07:30)
DX: Z12.11 Encounter for screening for malignant neoplasm of colon (principal); K63.5 Polyp of colon; Z80.0 Family history of malignant neoplasm of digestive organs; Z79.899 Other long term (current) drug therapy; I10 Essential (primary) hypertension; E78.5 Hyperlipidemia, unspecified
CPT/HCPCS: 45380; J2704

== ENCOUNTER → 2021-10-18 15:09 | Outpatient (CLI) | payer BC, MEDICARE, SELFPAY ==
--- NOTE | 2021-10-18 15:10 | CA_ITS ---
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 2D Dimensions LVOT 1.90 cm (M/F) 1.5-2.5 LVEF (Lawrence's) 70.90 % F: 54 - 74 LV Volume 77.20 mL F: 46 - 106 LV Volume Index 40.41 mL/m2 F: 29 - 61 LA Volume 40.00 mL LA Volume Index 20.94 mL/m2 (M/F) 16-34 M-Mode Dimensions RVDd 2.31 cm (0.9-2.6) LA Diam 3.91 cm (1.9-4.0) LVDd 5.06 cm (3.5-5.7) Ao Diam 2.65 cm (2.0-3.7) LVDs 3.70 cm (3.5-5.7) IVSd 0.82 cm (0.6-1.1) PWd 0.89 cm (0.6-1.1) EF (Teich) 52.20% FS 26.90% EDV (Teich) 121.60 mL ESV (Teich) 58.10 mL LV Diastology E Decel Time 243.00 (160-240 msec) E/A Ratio 1.1 MED E' 6.20 (< 7 cm/sec) E'/MED E' Ratio 10.94 (>14) LAT E' 8.90 (<10 cm/sec) E/LAT E' Ratio 7.62 (>14) Mitral Valve MV E Max Jose. 68.00 (40-130 cm/s) MV A Velocity 64.00 (40-130 cm/s) E/A Ratio 1.06 MV Decel. Time 243.00 (160-240 ms) MV PHT 71.00 ms Left Ventricle Left atrium is mildly enlarged, left ventricle is normal size mild concentric left ventricular hypertrophy, estimated ejection fraction 55% with no regional wall motion abnormality, grade 1 diastolic dysfunction seen without tissue Doppler evidence of raise left atrial pressure. Right Ventricle Right atrium and right ventricle are mildly enlarged with normal contractility. Aortic Valve Aortic valve is thickened and calcified without aortic stenosis or aortic insufficiency. Mitral Valve Mitral valve leaflets are minimally thickened, there is mild mitral regurgitation. Tricuspid Valve Tricuspid valve is grossly normal, there is mild tricuspid regurgitation, tricuspid regurgitation jet velocity is inadequate for calculation of the right ventricular systolic pressure. Pulmonic Valve Pulmonic valve is poorly visualized. Great Vessels Aortic root is normal size. Inferior vena cava is poorly visualized. Pericardium No significant pericardial effusion noted. Conclusion 1. Mild biatrial enlargement, normal left ventricular size, mild concentric left ventricular hypertrophy, estimated ejection fraction 55% with no regional wall motion abnormality, grade 1 diastolic dysfunction seen without tissue Doppler evidence of raise left atrial pressure. 2. Mildly enlarged right ventricle with normal contractility. 3. Mild mitral and tricuspid regurgitation. 4. No significant pericardial effusion noted. 5. Inferior vena cava is poorly visualized. Electronically signed by : Sharad Tobin MD 10/19/2021 06:00:23
== END ==
PROVIDERS: PCP Family Medicine; Visit Provider Physician Assistant
DX: Z01.818 Encounter for other preprocedural examination (principal); R06.09 Other forms of dyspnea; I10 Essential (primary) hypertension; E78.2 Mixed hyperlipidemia
CPT/HCPCS: 93306

== ENCOUNTER → 2021-10-25 15:09 | Outpatient (POV) | payer BC, MEDICARE, SELFPAY | PROVIDERS: Visit Provider Dermatology | DX: Z00.00 Encounter for general adult medical examination without abnormal findings (principal) ==

== ENCOUNTER → 2021-12-06 07:41 | Outpatient (CLI) | payer BC, MEDICARE, SELFPAY ==
--- NOTE | 2021-12-06 07:44 | US_ITS ---
FINAL REPORT TECHNIQUE: Multiple transverse and longitudinal images CLINICAL HISTORY: ELEVATED LIVER FUNCTION TESTS FINDINGS: Patient is status post cholecystectomy. No biliary ductal dilatation is appreciated. No fluid collections are seen. Limited portions of the right liver are unremarkable. Limited portions of the right kidney are unremarkable. IMPRESSION: 1. No evidence of cholelithiasis 2. No evidence of biliary obstruction Reviewed, Interpreted and Dictated by Vikas Lopez MD Transcribed by Nadja Alonzo Authenticated and [facility]
== END ==
PROVIDERS: PCP Family Medicine; Visit Provider Family Medicine
DX: R79.89 Other specified abnormal findings of blood chemistry (principal)
CPT/HCPCS: 76705

== ENCOUNTER → 2021-12-20 13:30 | Outpatient (POV) | payer BC, MEDICARE, SELFPAY | PROVIDERS: Visit Provider Dermatology | DX: Z00.00 Encounter for general adult medical examination without abnormal findings (principal) ==

== ENCOUNTER → 2022-03-28 15:35 | Outpatient (CLI) | payer BC, MEDICARE, SELFPAY ==
--- NOTE | 2022-03-28 15:35 | MM_ITS ---
PROCEDURE INFORMATION: Exam: MG Bilateral Screening 3D Mammography Exam date and time: 03/28/2022 3:38 PM Age: 76 years old Clinical indication: Screening. No family history of breast cancer. History of bilateral benign biopsies. TECHNIQUE: Imaging protocol: Bilateral Screening tomosynthesis and 2D mammography including computer-aided detection (CAD) when performed. COMPARISON: 1. MG MM DIG SCREENING MAMM BI W/CAD 03/10/2021 10:54 AM 2. MG MM DIG SCREENING MAMM BI W/CAD 03/08/2020 2:28 PM 3. MG MM DIG SCREENING MAMM BI W/CAD 03/06/2019 8:32 AM 4. MG SCBI MM Dig screening mamm BI w/CAD 02/27/2018 4:06 PM FINDINGS: MAMMOGRAPHY: Breast composition: There are scattered areas of fibroglandular density. Mass: None. Architectural distortion: None. Calcifications: No suspicious calcifications. Asymmetric density: None. Skin thickening: None. Axillary adenopathy: None. Other: Bilateral biopsy clips. IMPRESSION: No mammographic evidence of malignancy. Annual screening is recommended unless otherwise clinically indicated. ASSESSMENT: BI-RADS Category 2: Benign
== END ==
PROVIDERS: PCP Family Medicine; Visit Provider Obstetrics & Gynecology
DX: Z12.31 Encounter for screening mammogram for malignant neoplasm of breast (principal)
CPT/HCPCS: 77063; 77067

== ENCOUNTER → 2022-06-20 15:40 | Outpatient (POV) | payer BC, MEDICARE, SELFPAY | PROVIDERS: Visit Provider Dermatology | DX: Z00.00 Encounter for general adult medical examination without abnormal findings (principal) ==

== ENCOUNTER 2022-08-03 16:00 | Outpatient (RCR) | payer BC, MEDICARE, SELFPAY | END 2022-08-03 16:05 | disposition home or self-care (01) | LOC: PT 16:00 | PROVIDERS: PCP Family Medicine; Visit Provider Orthopaedic Surgery Adult Reconstructive Orthopaedic Surgery | DX: M25.561 Pain in right knee (principal); Z96.651 Presence of right artificial knee joint | CPT/HCPCS: 97014; 97016; 97110; 97112; 97163; 97164; 97530; G0283 ==

== ENCOUNTER → 2022-10-16 15:21 | Outpatient (CLI) | payer BC, MEDICARE, SELFPAY ==
--- NOTE | 2022-10-16 15:25 | CA_ITS ---
FINAL REPORT TECHNIQUE: Color Doppler, duplex Doppler and brizuela scale sonography of the bilateral neck arterial vasculature was performed. Velocities were measured in the carotid arteries. Stenosis evaluation based on the validated velocity criteria. CLINICAL HISTORY: JAMARCUS,HTN,HLD FINDINGS: The peak systolic velocity of the right common carotid artery is 91 cm/s. The peak systolic velocity of the right internal carotid artery is 91 cm/s and end diastolic velocity 30 cm/s. The ICA/CCA ratio is 1.0. A small amount of plaque is present. The right external carotid artery is patent. The peak systolic velocity of the left common carotid artery is 94 cm/s. The peak systolic velocity of the left internal carotid artery is 106 cm/s and end diastolic velocity 40 cm/s. The ICA/CCA ratio is 1.2. A small amount of plaque is present. The left external carotid artery is patent.The left vertebral artery is patent with antegrade flow. Multiple thyroid nodules are identified. IMPRESSION: Less than 50% bilateral carotid stenoses. Bilateral patent vertebral arteries with antegrade flow. Multiple thyroid nodules. Consider thyroid ultrasound. If indicated, CTA or MRA could further evaluate. Reviewed, Interpreted and Dictated by Jayden Blackmon III, MD Transcribed by Nadja Alonzo Authenticated and [facility]
== END ==
PROVIDERS: PCP Family Medicine; Visit Provider Internal Medicine
DX: I65.23 Occlusion and stenosis of bilateral carotid arteries (principal); I10 Essential (primary) hypertension; E78.5 Hyperlipidemia, unspecified
CPT/HCPCS: 93880

== ENCOUNTER → 2022-11-03 15:02 | Outpatient (CLI) | payer BC, MEDICARE, SELFPAY ==
--- NOTE | 2022-11-03 15:03 | US_ITS ---
FINAL REPORT TECHNIQUE: Limited sonographic images of the thyroid were obtained. CLINICAL HISTORY: thyroid nodule FINDINGS: Multiple bilateral thyroid nodules are identified. The right lobe of the thyroid measures 5.1 x 1.6 x 2.5 cm. There is a mixed cystic and solid hypoechoic nodule measuring 2.9 x 1.3 cm consistent with TI-RADS category 3. Multiple other small benign-appearing nodules are subcentimeter in both lobes. The left lobe of the thyroid measures 4.9 x 1.2 x 2.1 cm. There is a solid, isoechoic nodule with microcalcifications in the lower pole measuring 1.3 cm consistent with TI-RADS category 4. The isthmus measures 0.19 cm. IMPRESSION: Multiple bilateral thyroid nodules. Recommend biopsy for the TI-RADS category 3 nodule in the right lobe. Recommend 1 year follow-up for the TI-RADS category 4 nodule in the left lobe. Reviewed, Interpreted and Dictated by Jason Nielsen MD Transcribed by Nadja Alonzo Authenticated and [facility]
== END ==
PROVIDERS: PCP Family Medicine; Visit Provider Nurse Practitioner
DX: E04.1 Nontoxic single thyroid nodule (principal)
CPT/HCPCS: 76536

== ENCOUNTER → 2022-11-27 06:59 | Outpatient (CLI) | payer BC, MEDICARE, SELFPAY ==
--- NOTE | 2022-11-27 07:17 | US_ITS ---
FINAL REPORT CLINICAL HISTORY: .fna rt thyroid nodules-- carlos manuel jain -- FINDINGS: Ultrasound guided thyroid biopsy. HISTORY: Right thyroid nodule. Attending radiologist: Dr. Nielsen Physician Any Commodity Buyer: Carlos Manuel Jain PA-C PROCEDURE: After informed consent was obtained and a time-out was performed, the patient was prepped and draped in usual sterile fashion over the right neck. Utilizing local anesthesia and sterile technique with a 25-gauge needle, access to lesion was obtained under direct ultrasound guidance. A total of 4 passes were made. The patient received no conscious sedation. The patient tolerated procedure well and left the department in good condition. IMPRESSION: Status post ultrasound guided biopsy of thyroid without immediate complication. Films reviewed , interpreted and dictated by Dr. Nielsen. Transcribed by Carlos Manuel Jain PA-C. Reviewed, Interpreted and Dictated by Jason Nielsen MD Transcribed by RAISA Barone Authenticated and [facility]
[2022-11-27 09:08] LABS: Thyroid Stimulating Hormone 0.97 uIU/mL (0.465-4.68)
== END ==
LOC: RAD 07:00
PROVIDERS: PCP Family Medicine; Visit Provider Nurse Practitioner
DX: E04.1 Nontoxic single thyroid nodule (principal)
CPT/HCPCS: 10005; 36415; 76536; 84439; 84443

== ENCOUNTER → 2023-01-23 14:43 | Outpatient (POV) | payer BC, MEDICARE, SELFPAY | PROVIDERS: PCP Family Medicine; Visit Provider Dermatology | DX: Z00.00 Encounter for general adult medical examination without abnormal findings (principal) ==

== ENCOUNTER → 2023-02-09 07:38 | Outpatient (CLI) | payer BC, MEDICARE, SELFPAY ==
--- NOTE | 2023-02-09 07:38 | US_ITS ---
FINAL REPORT CLINICAL HISTORY: .YASEMIN KLINE -- RT THYROID NODULE FINDINGS: ULTRASOUND GUIDED THYROID BIOPSY HISTORY: Right thyroid nodule/mass. TECHNIQUE: Informed consent was obtained from the patient. Timeout procedure was performed prior to beginning. Limited sonographic evaluation of thyroid gland was performed to localize lesion of interest. The neck was prepped in a routine sterile fashion and locally anesthetized with 1% lidocaine. FNA was performed with 25-gauge needle under direct sonographic visualization. 5 passes were made. One sample was placed in Thyroseq. Cytology is pending. Procedure was well tolerated. CONCLUSION: Technically successful thyroid fine needle aspiration of a right thyroid nodule. Reviewed, Interpreted and Dictated by Jason Nielsen MD Transcribed by Nereyda العراقي PA-C Authenticated and [facility]
== END ==
LOC: RAD 07:38
PROVIDERS: PCP Family Medicine; Visit Provider Nurse Practitioner
DX: E04.1 Nontoxic single thyroid nodule (principal)
CPT/HCPCS: 10005; 76536

== ENCOUNTER 2023-04-02 07:51 | Outpatient (CLI) | payer BC, MEDICARE, SELFPAY ==
--- NOTE | 2023-04-02 08:06 | MM_ITS ---
PROCEDURE INFORMATION: Exam: MG Bilateral Screening 3D Mammography Exam date and time: 04/02/2023 7:54 AM Age: 77 years old Clinical indication: Screening examination TECHNIQUE: Imaging protocol: Bilateral Screening tomosynthesis and 2D mammography including computer-aided detection (CAD) when performed. COMPARISON: 1. MG MM DIG SCREENING MAMM BI W/CAD 03/28/2022 3:38 PM 2. MG MM DIG SCREENING MAMM BI W/CAD 03/10/2021 10:54 AM FINDINGS: MAMMOGRAPHY: Breast composition: The breasts are heterogeneously dense, which may obscure small masses. Mass: None. Architectural distortion: None. Calcifications: No suspicious calcifications. Asymmetric density: None. Skin thickening: None. Axillary adenopathy: None. IMPRESSION: No mammographic evidence of malignancy. Annual screening is recommended unless otherwise clinically indicated. ASSESSMENT: BI-RADS Category 1: Negative
--- NOTE | 2023-04-02 08:07 | XR_ITS ---
FINAL REPORT CLINICAL HISTORY: POST MENOPAUSAL Osteoporosis screening COMPARISON: 03/10/2019 FINDINGS: Using L1-4, the bone mineral density of the spine is 1.345 g/cm2, corresponding to T-score of 2.7, within normal limits. Previously 1.460 g/cm? with a T-score of 3.8. Using the left hip, the bone mineral density of the femoral neck is 0.832 g/cm2, corresponding to a T-score of -0.9, within normal limits. Previously 0.893 g/cm? with T-score of -0.4. Using the right hip, the bone mineral density of the femoral neck is 0.779 g/cm2, corresponding to a T-score of -0.6, within normal limits. Previously 0.812 g/cm? with T-score of -0.3. FRAX not reported because all T-scores at or above -1.0. NOTE: T-score: Standard deviation compared with peak bone mass of young adult mean. *Following the recommendations of the International Society of Bone densitometry, classification of hip BMD is based on the lower of two T-scores; total hip or femoral neck. IMPRESSION: Normal bone mineral density of the lumbar spine and hips. Reviewed, Interpreted and Dictated by Jason Nielsen MD Transcribed by Olga Pickard Authenticated and [facility]
== END 2023-04-02 23:59 ==
PROVIDERS: PCP Family Medicine; Visit Provider Family Medicine
DX: Z12.31 Encounter for screening mammogram for malignant neoplasm of breast; Z78.0 Asymptomatic menopausal state; Z13.820 Encounter for screening for osteoporosis
CPT/HCPCS: 77063; 77067; 77080

== ENCOUNTER 2023-08-24 15:39 | Outpatient (CLI) | payer BC, MEDICARE, SELFPAY ==
--- NOTE | 2023-08-24 15:39 | US_ITS ---
FINAL REPORT CLINICAL HISTORY: thyroid nodule COMPARISON: 11/03/2022 FINDINGS: Sonographic images of the thyroid gland were obtained. The right thyroid lobe measures 5.4 cm. in length. The left thyroid lobe measures 5.4 cm. in length. The thyroid isthmus measures 0.23 cm. There are multiple nodules present in the thyroid gland bilaterally. On the right side there is a dominant nodule measuring 20 x 10 mm in size. This nodule was previously 29 x 12 mm in size. It is cystic and solid, hypoechoic, a TI-RADS category 3 nodule. Multiple nodules are present in the left lobe as well, one of the larger nodules measures 18 x 10 mm in size and is cystic, solid, isoechoic, a TI-RADS category 3 nodule. Direct comparison is difficult, however it appears that this particular nodule is similar in appearance. IMPRESSION: Multiple nodules are present in the thyroid gland, the dominant right-sided nodule is smaller than seen on the prior exam, and the larger left lobe nodule is similar to the prior exam. Recommend 12-month follow-up thyroid ultrasound. Reviewed, Interpreted and Dictated by Jayden Blackmon III, MD Transcribed by Evelin Springer Authenticated and . [facility]
== END 2023-08-24 23:59 | disposition home or self-care (01) ==
LOC: RAD 15:39
PROVIDERS: PCP Family Medicine; Visit Provider Nurse Practitioner
DX: E04.1 Nontoxic single thyroid nodule (principal)
CPT/HCPCS: 76536

== ENCOUNTER 2023-10-17 15:44 | Outpatient (CLI) | payer BC, MEDICARE, SELFPAY ==
[2023-10-17 16:20] LABS: Basophils # 0.1 K/mm3 (0-0.2); Basophils % 0.9 % (0.1-2.0); Eosinophils # 0.2 K/mm3 (0.0-0.4); Eosinophils % 3.7 % (0.1-12.0); Hemoglobin 13.2 g/dL (12.2-16.2); Lymphocytes % 34.2 % (10-50); Mean Corpuscular HGB Conc 33.1 g/dL (31.8-35.4); Mean Corpuscular Hemoglobin 30.3 pg (27.0-31.2); Mean Corpuscular Volume 91.6 fl (81-99); Mean Platelet Volume 8.4 fl (7.4-10.4); Monocytes # 0.3 K/mm3 (0.1-1.0); Neutrophils # 3.3 K/mm3 (1.8-7.8); Neutrophils % 56.1 % (37.0-80.0); Platelet Count 214 K/mm3 (142-424); Red Blood Count 4.37 M/mm3 (4.20-5.40); Red Cell Distribution Width 13.6 % (11.5-17.5)
[2023-10-17 16:32] LABS: Hemoglobin A1C 5.8 % (4.0-6.0)
[2023-10-17 16:48] LABS: Albumin Level 4.1 g/dl (3.5-5.0); Chloride 109 mmol/L (98-107); Sodium 141 mmol/L (136-145)
[2023-10-17 16:51] LABS: Alanine Aminotransferase 22 U/L (12-78); Alkaline Phosphatase 104 U/L (38-126); Aspartate Amino Transferase 36 U/L (14-36); Bilirubin,Direct 0.3 mg/dl (0.0-0.4); Bilirubin,Indirect 0.3 mg/dL (0.0-0.9); Bilirubin,Total 0.6 mg/dl (0.2-1.3); Bilirubin,Unconjugated 0.3 mg/dL (0.0-1.1); Blood Urea Nitrogen 21 mg/dl (7-17); Calcium 9.2 mg/dl (8.4-10.2); Carbon Dioxide 29 mmol/L (22.0-30.0); Cholesterol 171 mg/dl (140-200); Estimated Glomerular Filt Rate 61 ml/min (>60); GFR (African American) 74 ML/MIN (>60); Glucose 91 mg/dl (74-100); Total Protein,Serum 6.5 g/dl (6.3-8.2); Triglycerides 95 mg/dl (30-150); VLDL Cholesterol 19 mg/dL (0-40)
[2023-10-17 16:52] LABS: Chol/HDL Ratio 2.6 (1-3.5); HDL Cholesterol 66 mg/dl (40-60)
[2023-10-17 17:03] LABS: Direct LDL Cholesterol 76.95 mg/dL (100-129)
[2023-10-17 17:08] LABS: Free T4 (Free Thyroxine) 1.43 ng/dl (0.78-2.19)
== END 2023-10-17 23:59 | disposition home or self-care (01) ==
LOC: LAB 15:45
PROVIDERS: PCP Family Medicine; Visit Provider Internal Medicine
DX: E78.2 Mixed hyperlipidemia (principal); R06.00 Dyspnea, unspecified; I65.23 Occlusion and stenosis of bilateral carotid arteries; I11.9 Hypertensive heart disease without heart failure; K21.9 Gastro-esophageal reflux disease without esophagitis; E66.9 Obesity, unspecified; Z68.32 Body mass index [BMI] 32.0-32.9, adult
CPT/HCPCS: 36415; 80048; 80061; 80076; 83036; 84439; 84443; 85025

== ENCOUNTER 2024-01-29 14:00 | Outpatient (POV) | payer BC, MEDICARE, SELFPAY | END 2024-01-29 23:59 | disposition home or self-care (01) | LOC: SC 01-30 06:58 | PROVIDERS: Visit Provider Dermatology | DX: Z00.00 Encounter for general adult medical examination without abnormal findings (principal) ==

== ENCOUNTER 2024-05-22 13:56 | Outpatient (CLI) | payer BC, MEDICARE, SELFPAY ==
--- NOTE | 2024-05-22 14:00 | MM_ITS ---
PROCEDURE INFORMATION: Exam: MG Bilateral Screening 3D Mammography Exam date and time: 05/22/2024 2:07 PM Age: 78 years old Clinical indication: Screening examination TECHNIQUE: Imaging protocol: Bilateral Screening tomosynthesis and 2D mammography including computer-aided detection (CAD) when performed. COMPARISON: 1. MG MM DIG SCREENING MAMM BI W/CAD 04/02/2023 7:54 AM 2. MG MM DIG SCREENING MAMM BI W/CAD 03/28/2022 3:38 PM FINDINGS: MAMMOGRAPHY: Breast composition: The breasts are heterogeneously dense, which may obscure small masses. Mass: No suspicious masses. Architectural distortion: None. Calcifications: No suspicious calcifications. Asymmetric density: None. Skin thickening: None. Axillary adenopathy: None. IMPRESSION: No mammographic evidence of malignancy. Annual screening is recommended unless otherwise clinically indicated. ASSESSMENT: BI-RADS Category 1: Negative.
== END 2024-05-22 23:59 | disposition home or self-care (01) ==
LOC: RAD 13:57
PROVIDERS: PCP Family Medicine; Visit Provider Family Medicine
DX: Z12.31 Encounter for screening mammogram for malignant neoplasm of breast (principal)
CPT/HCPCS: 77063; 77067

== ENCOUNTER 2024-08-27 15:12 | Outpatient (CLI) | payer BC, MEDICARE, SELFPAY ==
--- OUTSIDE RECORDS SUMMARY | 2023-10-22 11:30 | XMS_ITS ---
Author Organization [facility] Address [address] [facility] [address] [place] [phone] Care Team Providers Care C Engineer Name Role Phone Gera Remy Primary Care Provider Becky Amador Unavailable [phone] Allergies Allergen (clinical drug ingredient) Drug/Non Drug Allergy documented on EMR Reaction Allergy Type Onset Date Status Dye [facility] Blue 1 shivers/shaking Drug Allergy Active Results [...] review and pick correct strength-formulati on from [employer] options. If intended option is not shown, discontinue and re-order from Quick Search* Active Vital Signs Blood pressure systolic 124 mm Hg 10/22/19 24 Blood pressure diastolic 68 mm Hg 024 Heart Rate 70 /min 10/22/2023 Height 65.5 in 10/22/2023 Weight 177.8 lbs 10/22/2023 BMI 29.13 kg/m2 10/22/2023 Encounters Encounter Location Date Provider Diagnosis [facility] [address] [facility] 36 [facility] [address] [place] [phone] 10/22/2023 Becky Amador Gastroenteritis K52. 9 Assessments [...] Name:Gera Trejo, 10/14/2024 03:00:00 PM, [address] [facility] 36 [facility], [address], [place], [phone], Progress Notes * JORGE LANIERDOB:1945 ( 79 yo F)Acc No.[id number]:10/22/2023 Progress Notes Patient: JORGE MAN Provider: BERNARDINO Busby :1945 A ge:78 Y S ex:Female Date:10/22/2023 Address:[facility], [id number] Pcp:Gera Remy Subjective: * Chief Complaints: * [...] *Please review and pick correct strength-formulation from [employer] options. If intended option is not shown, [...] with the patient * Allergies: D ye [facility] Blue 1: shivers/shaking. Objective: * Vitals: W [...] * Procedure Codes: 9 [address] [place], [address] CAPILLARY BLOOD DRAW, 64553 CBC WITH AUTO DIFF * Follow Up: p rn * Billing Information: * Visit Code: 47625 Office Visit, Est Pt., Level 3. * Procedure Codes: [address] [place]. [address] CAPILLARY BLOOD DRAW. 42174 CBC WITH AUTO DIFF. * Electronic signature of Leyda Amador APRN on 08/27/2024 at 03:15 PM EDT Sign off status: Pending * Provider: BERNARDINO Busby Date: 10/22/2023 Generated for Rafi moreno/Guillermo/Anisha on: 0 08/27/2024 03:15 PM EDT History and Physical Notes * [...]
--- OUTSIDE RECORDS SUMMARY | 2024-03-01 06:30 | XMS_ITS ---
Author Organization [facility] Address [address] [facility] [address] [place] [phone] Care Team Providers Care Deputy Sheriff K9 Handler Name Role Phone Gera Remy Primary Care Provider Parviz Friend Unavailable [phone] Allergies Allergen (clinical drug ingredient) Drug/Non Drug Allergy documented on EMR Reaction Allergy Type Onset Date Status Dye CORRECTION Blue 1 shivers/shaking Drug Allergy Active Results [...] 03/01/2024 Encounters Encounter Location Date Provider Diagnosis [facility] [address] [place], [place] [phone] 03/01/2024 Parviz Friend Cough, unspecified t ype [...] [address], [address], [place], [place], [phone], Progress Notes * JORGE LANIERDOB:1945 ( 79 yo F)Acc No.[id number]:03/01/2024 Progress Notes Patient: JORGE MAN Provider: Nikko Friend M.D. :1945 A ge:78 Y S ex:Female Date:03/01/2024 Address:[place] [place], [id number] Pcp:Gera Remy Subjective: * Chief Complaints: * [...] with the patient * Allergies: D ye CORRECTION Blue 1: shivers/shaking. Objective: * Vitals: W [...] G 2211 Complex e/[place], [address] CAPILLARY BLOOD DRAW, 68244 CBC WITH AUTO DIFF, 51997 Flu Test- Nasal Swab, Modifiers: QW , 52917 COVID TEST IN HOUSE, Modifiers: QW * Follow Up: p rn * Billing Information: * Visit Code: 02755 Office Visit, Est Pt., Level 3. * Procedure Codes: G2211 Complex e/[place]. [address] CAPILLARY BLOOD DRAW. 50636 CBC WITH AUTO DIFF. 39935 Flu Test- Nasal Swab. Modifiers: QW 58588 COVID TEST IN HOUSE. Modifiers: QW * Electronic signature of Hannah Friend MD on 08/27/2024 at 03:15 PM EDT Sign off status: Pending * Provider: Nikko Friend M.D. Date: 05/02/2023 Generated for Rafi moreno/Guillermo/eTransmitting on: 0 08/27/2024 03:15 PM EDT History [...]
--- OUTSIDE RECORDS SUMMARY | 2024-07-01 10:30 | XMS_ITS ---
Author Organization [facility] Address [address] [facility] [address] [place] [id number] Care Team Providers Care Deli Manager Name Role Phone Gera Remy Primary Care Provider Allergies Allergen (clinical drug ingredient) Drug/Non Drug Allergy documented on EMR Reaction Allergy Type Onset Date Status Dye HALFWAY Blue 1 shivers/shaking Drug Allergy Active REASON [...] MG 1 tab orally at bedtime Not-Taking Gwnmchwvh-Kjthqneu-QF 30-1-20 MG/5ML 5-10 ml Orally every 6 [...] 07/01/2024 Encounters Encounter Location Date Provider Diagnosis [facility] [address] [facility] [address] [facility] [address] [place], [place] [id number] 07/01/2024 Gera Remy Acute bronchitis J20 .9 [...] Name Sig Start Date Stop Date Notes Jtskakdtn-Trcgenwg-HZ 30-1-2 0 MG/5ML 5-10 ml Orally every 6 hrs prn 07/01/2024 Zithromax Z-Ron 250 MG as directed Orally 07/01/2024 Treatment Notes Assessment Notes Scalp contusion Ice to hematoma 3 ti mes daily Next Appt Details Follow Up: prn, Reason: Provider Name:Gera Trejo, 10/14/2024 03:00:00 PM, [address] [facility] [address] [facility], [address], [place], [phone], Progress Notes * JORGE LANIERDOB:1945 ( 79 yo F)Acc No.[id number]:07/01/2024 Progress Notes Patient: JORGE MAN Provider: Gera Remy M.D. :1945 A ge:78 Y S ex:Female Date:07/01/2024 Address:[address] [place], [place] [address] [facility], [id number] Subjective: * Chief Complaints: * 1 . [...] with the patient * Allergies: D ye HALFWAY Blue 1: shivers/shaking. Objective: * Vitals: W [...] eneralized osteoarthritis - M15.9 4 . B MD 29.0-29.9,adult - Z68.29 Plan: * Treatment: 2. S calp contusion Notes: Ice to hematoma 3 times daily * Procedure Codes: G 2211 Complex e/m visit add on, 3074F SYST BP LT 130 MM HG, 3078F DIAST BP < 80 MM HG, G8420 BMI<30 AND >=22 CALC & DOCU * Follow Up: p rn * Billing Information: * Visit Code: 28922 Office Visit, Est Pt., Level 3. * Procedure Codes: G2211 Complex e/m visit add on. 3074F SYST BP LT 130 MM HG. 3078F DIAST BP < 80 MM HG. G8420 BMI<30 AND >=22 CALC & DOCU. * Electronic signature of Gera Remy MD on 08/27/2024 at 03:15 PM EDT Sign off status: Pending * Provider: Gera Remy M.D. Date: 0 07/01/2024 Generated for Rafi moreno/Guillermo/eTransmitting on: 0 08/27/2024 [...]
--- OUTSIDE RECORDS SUMMARY | 2024-08-27 15:15 | XMS_ITS | Data Portability ---
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 Plan of Treatment Reminders Order Date Submit Date Provider Last Modified By Organization Details Last Modified Time Details Appointments None recorded. Lab urinalysis panel, auto 2020 021 [facility] Extended Services With [facility], [address], [place], [address], 1 13:28:48 urinalysis panel, auto 2019 [facility] Services With [facility], [address], [place], [address], 0 07:55:53 culture, urine 2019 [facility], [address] [place] [address], [address], 0 07:55:53 urinalysis , dipstick, auto 2019 [facility] Extended Services With [facility], [address], [place], [address], 0 07:25:16 urinalysis , dipstick, auto [email or web address], [address], [address], [place], [address], 0 08:20:26 culture, urine 2019 [facility], [facility] [place], [address], 0 14:37:51 Referral None recorded. Procedures urodynamic testing, complex (PROC) 2019 [email or web address] [facility] With [facility], [address], [place], [address], 0 16:10:19 Surgeries sling operation for stress incontinen ce (SURG) 2019 [facility] (Surgery Scheduling), [address], [place], [address], 0 15:52:24 laparoscop ic sacrocolpo pexy (SURG) 2019 020 [facility] (Surgery Scheduling), [address], [place], [address], 0 15:49:53 Imaging None recorded. Medication Orders None recorded. Patient TargetsNo targets recorded. Patient Instructions Encounter Date Encounter Id Patient Instructions Last Modified By Organization Details Last Modified Time 04/17/2019 [id number] Urinary Tract Infection (UTI) in Women: [facility] 04/20/2019 14:21:27 bladder training : care instructions [facility] Not available 04/20/2019 14:21:27 kegel exercises: [facility] 04/20/2019 14:21:27 Stress Incontinence: [facility] 04/20/2019 14:21:27 Urge Incontinenc e: Care Instructions [email or web address] Not available 04/20/2019 14:21:27 Plan for urodynamics with pessary. Patient is a good candidate for sacral colpopexy. We did discuss options for treatment of prolapse including but not limited to observation, pessary, surgery. Further recommendations to follow urodynamics [facility] Not available 04/20/2019 14:21:56 05/12/2019 [id number] bladder training : care instructions [facility] Not available 05/15/2019 07:25:16 kegel exercises: care instructions [place] Not available 05/15/2019 07:25:16 Stress Incontinence: Care Instructions [place] Not available 05/15/2019 07:25:16 bladder training : care instructions [place] Not available 05/15/2019 07:25:16 kegel exercises: care instructions [place] Not available 05/15/2019 07:25:16 Stress Incontinence: Care Instructions [place] Not available 05/15/2019 07:25:16 Urge Incontinenc e: Care Instructions [place] Not available 05/15/2019 07:25:15 Plan for robotic-assisted left scopic sacral colpopexy and suburethral sling. We talked about risks and benefits of the procedure including but not limited to bleeding, infection, recurrence of symptoms. We also talked about risk involved with potential use of pelvic mesh. [facility] 05/15/2019 07:25:33 02/09/2020 [id number] Urinary Tract Infection (UTI) in Women: Care Instructions [place] Not available 02/16/2020 07:32:15 bladder training : care instructions [place] Not available 02/16/2020 07:32:44 kegel exercises: care instructions [place] Not available 02/16/2020 07:32:44 Stress Incontinence: Care Instructions [place] Not available 02/16/2020 07:32:44 Urge Incontinenc e: Care Instructions [place] Not available 02/16/2020 07:32:44 Patient is doing quite well following pelvic prolapse and anti incontinent surgery. She'll follow-up in 3 months with vaginal exam. [facility] Not available 02/16/2020 07:32:43 05/10/2020 [id number] bladder training : care instructions [facility] Not available 05/10/2020 13:28:48 kegel exercises: [facility] 05/10/2020 13:28:48 Stress Incontinence: [facility] 05/10/2020 13:28:47 Urge Incontinenc e: Care Instructions [facility] Not available 05/10/2020 13:28:48 Patient continue s to do well following surgery with out urinary incontinence and good pelvic support. Plan to see back in 1 year [facility] Not available 05/10/2020 13:28:24 Reason for Referral None Reported. Results Created Date Observation Date Name Description Value Unit Range Abnormal Flag Note LastModifiedBy Organization Detail LastModifiedTime 05/11/1905/10/2020 urina lysis panel , auto Unknown Analyte Clean Catch Not Available [facility] [address] [facility], [place], [address], 05/10/2020 12:36:37 05/11/19 21 05/10/2020 urina lysis panel , auto Unknown Analyte Yellow Not Available [facility] Extended Services With [place] [address] [facility], [place], [address], 05/10/2020 12:36:37 05/11/19 21 05/10/2020 urina lysis panel , auto Unknown Analyte Clear Not Available [facility] Extended Services With [place] [address], [place], [address], 05/10/2020 12:36:37 05/11/19 21 05/10/2020 urina lysis panel , auto Unknown Analyte 1.020 Not Available [facility] Extended Services With [place] [address], [place], [address], 05/10/2020 12:36:37 05/11/19 21 05/10/2020 urina lysis panel , auto Unknown Analyte 1.003- 1.035 Not Available [facility] [place] Extended Services With [facility] [address], [place], [address], 05/10/2020 12:36:37 05/11/19 21 05/10/2020 urina lysis panel , auto Unknown Analyte 5.0 Not Available [facility] Services With [facility] [address], [place], [address], 05/10/2020 12:36:37 05/11/1905/10/2020 urina lysis panel , auto Unknown Analyte 5.0-8. 0 Not Available [facility] Extended Services With [facility] [address], [place], [address], 05/10/2020 12:36:37 05/11/19 21 05/10/2020 urina lysis panel , auto Unknown Analyte Negati ve Not Available [facility] Services With [facility] [address], [place], [address], 05/10/2020 12:36:37 05/11/19 21 05/10/2020 urina lysis panel , auto Unknown Analyte Negati ve Not Available [facility] With [facility] [address], [place], [address], 05/10/2020 12:36:37 05/11/19 21 05/10/2020 urina lysis panel , auto Unknown Analyte Negati ve Not Available [facility] [place] Extended Services With [facility] [address], [place], [address], 05/10/2020 12:36:37 05/11/19 21 05/10/2020 urina lysis panel , auto Unknown Analyte Negati ve Not Available [facility] Services With [facility] [address], [place], [address], 05/10/2020 12:36:37 05/11/19 21 05/10/2020 urina lysis panel , auto Unknown Analyte Negati ve Not Available [facility] With [facility] [address], [place], [address], 05/10/2020 12:36:37 05/11/1905/10/2020 urina lysis panel , auto Unknown Analyte Negati ve Not Available [facility] With [facility] [address], [place], [address], 05/10/2020 12:36:37 05/11/19 21 05/10/2020 urina lysis panel , auto Unknown Analyte Normal Not Available [facility] Services With [facility] [address], [place], [address], 05/10/2020 12:36:37 05/11/19 21 05/10/2020 urina lysis panel , auto Unknown Analyte Normal Not Available [facility] With [facility] [address], [place], [address], 05/10/2020 12:36:37 05/11/19 21 05/10/2020 urina lysis panel , auto Unknown Analyte Negati ve Not Available [facility] With [facility] [address], [place], [address], 05/10/2020 12:36:37 05/11/19 21 05/10/2020 urina lysis panel , auto Unknown Analyte Negati ve Not Available [facility] [place] [facility] [address], [place], [address], 05/10/2020 12:36:37 05/11/19 21 05/10/2020 urina lysis panel , auto Unknown Analyte Normal Not Available [facility] Services With [facility] [address], [place], [address], 05/10/2020 12:36:37 05/11/19 21 05/10/2020 urina lysis panel , auto Unknown Analyte Normal 1 mg/dl Not Available [facility] Services With [facility] [address], [place], [address], 05/10/2020 12:36:37 05/11/19 21 05/10/2020 urina lysis panel , auto Unknown Analyte Negati ve Not Available [facility] Services With [facility] [address], [place], [address], 05/10/2020 12:36:37 05/11/19 21 05/10/2020 urina lysis panel , auto Unknown Analyte Negati ve Not Available [facility] With [facility] [address], [place], [address], 05/10/2020 12:36:37 05/11/19 21 05/10/2020 urina lysis panel , auto Unknown Analyte Negati ve Not Available [facility] With [facility] [address], [place], [address], 05/10/2020 12:36:37 05/11/19 21 05/10/2020 urina lysis panel , auto Unknown Analyte Negati ve Not Available [facility] With [facility] [address], [place], [address], 05/10/2020 12:36:37 02/09/2002/09/2020 urina lysis panel , auto Unknown Analyte Clean Catch Not Available [facility] [place] Extended Services With [facility] [address], [place], [address], 02/09/2020 13:09:05 02/09/2002/09/2020 urina lysis panel , auto Unknown Analyte Yellow Not Available [facility] [place] [facility] [address], [place], [address], 02/09/2020 13:09:05 02/09/2002/09/2020 urina lysis panel , auto Unknown Analyte Clear Not Available [facility] With [facility] [address], [place], [address], 02/09/2020 13:09:05 02/09/2002/09/2020 urina lysis panel , auto Unknown Analyte 1.025 Not Available [facility] Services With [facility] [address], [place], [address], 02/09/2020 13:09:05 02/09/2002/09/2020 urina lysis panel , auto Unknown Analyte 1.003- 1.035 Not Available [facility] [place] [facility] [address], [place], [address], 02/09/2020 13:09:05 02/09/2002/09/2020 urina lysis panel , auto Unknown Analyte 6.0 Not Available [facility] Services With [facility] [address], [place], [address], 02/09/2020 13:09:05 02/09/20 20 02/09/2020 urina lysis panel , auto Unknown Analyte 5.0-8. 0 Not Available [facility] [place] Extended Services With [facility] [address], [place], [address], 02/09/2020 13:09:05 02/09/2002/09/2020 urina lysis panel , auto Unknown Analyte 500 Darren/ul (++) Not Available [facility] Extended Services With [facility] [address], [place], [address], 02/09/2020 13:09:05 02/09/2002/09/2020 urina lysis panel , auto Unknown Analyte Negati ve Not Available [facility] With [facility] [address], [place], [address], 02/09/2020 13:09:05 02/09/2002/09/2020 urina lysis panel , auto Unknown Analyte Negati ve Not Available [facility] With [facility] [address], [place], [address], 02/09/2020 13:09:05 02/09/2002/09/2020 urina lysis panel , auto Unknown Analyte Negati ve Not Available [facility] [place] Extended Services With [facility] [address], [place], [address], 02/09/2020 13:09:05 02/09/2002/09/2020 urina lysis panel , auto Unknown Analyte Negati ve Not Available [facility] [place] Extended Services With [facility] [address], [place], [address], 02/09/2020 13:09:05 02/09/2002/09/2020 urina lysis panel , auto Unknown Analyte Negati ve Not Available [facility] [place] [facility] [address], [place], [address], 02/09/2020 13:09:05 02/09/2002/09/2020 urina lysis panel , auto Unknown Analyte Normal Not Available [facility] Services With [facility] [address], [place], [address], 02/09/2020 13:09:05 02/09/2002/09/2020 urina lysis panel , auto Unknown Analyte Normal Not Available [facility] Services With [facility] [address], [place], [address], 02/09/2020 13:09:05 02/09/2002/09/2020 urina lysis panel , auto Unknown Analyte Negati ve Not Available [facility] With [facility] [address], [place], [address], 02/09/2020 13:09:05 02/09/2002/09/2020 urina lysis panel , auto Unknown Analyte Negati ve Not Available [facility] With [facility] [address], [place], [address], 02/09/2020 13:09:05 02/09/2002/09/2020 urina lysis panel , auto Unknown Analyte 1 mg/dl Not Available [facility] With [facility] [address], [place], [address], 02/09/2020 13:09:05 02/09/2002/09/2020 urina lysis panel , auto Unknown Analyte Normal 1 mg/dl Not Available [facility] [place] Extended Services With [facility] [address], [place], [address], 02/09/2020 13:09:05 02/09/20 20 02/09/2020 urina lysis panel , auto Unknown Analyte 1 mg/dl (+) Not Available [facility] With [place] [address], [place], [address], 02/09/2020 13:09:05 02/09/2002/09/2020 urina lysis panel , auto Unknown Analyte Negati ve Not Available [facility] Extended Services With [place] [address], [place], [address], 02/09/2020 13:09:05 02/09/20 20 02/09/2020 urina lysis panel , auto Unknown Analyte Negati ve Not Available [facility] Extended Services With [place] [address], [place], [address], 02/09/2020 13:09:05 02/09/20 20 02/09/2020 urina lysis panel , auto Unknown Analyte Negati ve Not Available [facility] [address], [place], [address], 02/09/2020 13:09:05 05/12/19 20 05/12/2019 urina lysis , dipst ick, auto Unknown Analyte Yellow Not Available [facility] Extended Services With [place] [address], [place], [address], 05/12/2019 14:39:25 05/12/1905/12/2019 urina lysis , dipst ick, auto Unknown Analyte Clear Not Available [facility] Extended Services With [facility] [address], [place], [address], 05/12/2019 14:39:25 05/12/19 20 05/12/2019 urina lysis , dipst ick, auto Unknown Analyte 1.025 Not Available [facility] Extended Services With [facility] [address], [place], [address], 05/12/2019 14:39:25 05/12/19 20 05/12/2019 urina lysis , dipst ick, auto Unknown Analyte 1.003 - 1.035 Not Available [facility] Extended Services With [place] [address], [place], [address], 05/12/2019 14:39:25 05/12/19 20 05/12/2019 urina lysis , dipst ick, auto Unknown Analyte 5.0 Not Available [facility] Extended Services With [facility] [address], [place], [address], 05/12/2019 14:39:25 05/12/19 20 05/12/2019 urina lysis , dipst ick, auto Unknown Analyte 5.0 - 8.0 Not Available [facility] Extended Services With [place] [address], [place], [address], 05/12/2019 14:39:25 05/12/19 20 05/12/2019 urina lysis , dipst ick, auto Unknown Analyte Negati ve Not Available [facility] Extended Services With [place] [address], [place], [address], 05/12/2019 14:39:25 05/12/19 20 05/12/2019 urina lysis , dipst ick, auto Unknown Analyte Negati ve Not Available [facility] [place] Extended Services With [facility] [address], [place], [address], 05/12/2019 14:39:25 05/12/19 20 05/12/2019 urina lysis , dipst ick, auto Unknown Analyte Negati ve Not Available [facility] [place] Extended Services With [facility] [address], [place], [address], 05/12/2019 14:39:25 05/12/1905/12/2019 urina lysis , dipst ick, auto Unknown Analyte Negati ve Not Available [facility] [place] Extended Services With [facility] [address], [place], [address], 05/12/2019 14:39:25 05/12/19 20 05/12/2019 urina lysis , dipst ick, auto Unknown Analyte Negtiv e Not Available [facility] With [facility] [address], [place], [address], 05/12/2019 14:39:25 05/12/19 20 05/12/2019 urina lysis , dipst ick, auto Unknown Analyte Negati ve - Trace Not Available [facility] [place] Extended Services With [facility] [address], [place], [address], 05/12/2019 14:39:25 05/12/1905/12/2019 urina lysis , dipst ick, auto Unknown Analyte Normal Not Available [facility] [place] Extended Services With [facility] [address], [place], [address], 05/12/2019 14:39:25 05/12/19 20 05/12/2019 urina lysis , dipst ick, auto Unknown Analyte Normal Not Available [facility] Extended Services With [facility] [address], [place], [address], 05/12/2019 14:39:25 05/12/19 20 05/12/2019 urina lysis , dipst ick, auto Unknown Analyte Negati ve Not Available [facility] Extended Services With [facility] [address], [place], [address], 05/12/2019 14:39:25 05/12/1905/12/2019 urina lysis , dipst ick, auto Unknown Analyte Negati ve Not Available [facility] Extended Services With [place] [address], [place], [address], 05/12/2019 14:39:25 05/12/19 20 05/12/2019 urina lysis , dipst ick, auto Unknown Analyte Normal Not Available [facility] Extended Services With [facility] [address], [place], [address], 05/12/2019 14:39:25 05/12/19 20 05/12/2019 urina lysis , dipst ick, auto Unknown Analyte Normal - 1mg/dl Not Available [facility] Extended Services With [facility] [address], [place], [address], 05/12/2019 14:39:25 05/12/1905/12/2019 urina lysis , dipst ick, auto Unknown Analyte Negati ve Not Available [facility] Extended [facility] With [facility] [address], [place], [address], 05/12/2019 14:39:25 05/12/19 20 05/12/2019 urina lysis , dipst ick, auto Unknown Analyte Negati ve Not Available [facility] [place] Extended Services With [facility] [address], [place], [address], 05/12/2019 14:39:25 05/12/19 20 05/12/2019 urina lysis , dipst ick, auto Unknown Analyte Negati ve Not Available [facility] [place] Extended Services With [facility] [address], [place], [address], 05/12/2019 14:39:25 05/12/19 20 05/12/2019 urina lysis , dipst ick, auto Unknown Analyte Negati ve Not Available [facility] Extended Services With [facility] [address], [place], [address], 05/12/2019 14:39:25 05/12/19 20 05/12/2019 urina lysis , dipst ick, auto Unknown Analyte Clean Catch Not Available [facility] Extended Services With [facility] [address], [place], [address], 05/12/2019 14:39:25 05/12/19 20 05/12/2019 urina lysis , dipst ick, auto Unknown Analyte Automa fredrick Not Available [facility] Extended Services With [facility] [address], [place], [address], 05/12/2019 14:39:25 04/17/19 20 04/17/2019 urina lysis , dipst ick, auto Unknown Analyte Yellow Not Available [facility] [address] [address], [place], [address], 04/17/2019 14:40:12 04/17/19 20 04/17/2019 urina lysis , dipst ick, auto Unknown Analyte Clear Not Available [facility] [address], [place], [address], 04/17/2019 14:40:12 04/17/19 20 04/17/2019 urina lysis , dipst ick, auto Unknown Analyte 1.025 Not Available [facility] [address], [place], [address], 04/17/2019 14:40:12 04/17/19 20 04/17/2019 urina lysis , dipst ick, auto Unknown Analyte 5.0 Not Available [facility] [address], [place], [address], 04/17/2019 14:40:12 04/17/19 20 04/17/2019 urina lysis , dipst ick, auto Unknown Analyte 5.0 - 8.0 Not Available [facility] [address], [place], [address], 04/17/2019 14:40:12 04/17/19 20 04/17/2019 urina lysis , dipst ick, auto Unknown Analyte Negati ve Not Available [facility] [address], [place], [address], 04/17/2019 14:40:12 04/17/19 20 04/17/2019 urina lysis , dipst ick, auto Unknown Analyte Negati ve Not Available [facility] [address], [place], [address], 04/17/2019 14:40:12 04/17/19 20 04/17/2019 urina lysis , dipst ick, auto Unknown Analyte Negati ve Not Available [facility] [address], [place], [address], 04/17/2019 14:40:12 04/17/19 20 04/17/2019 urina lysis , dipst ick, auto Unknown Analyte Negati ve Not Available [facility] [address], [place], [address], 04/17/2019 14:40:12 04/17/19 20 04/17/2019 urina lysis , dipst ick, auto Unknown Analyte Negtiv e Not Available [facility] [address], [place], [address], 04/17/2019 14:40:12 04/17/19 20 04/17/2019 urina lysis , dipst ick, auto Unknown Analyte Negati ve - Trace Not Available [facility] [address], [place], [address], 04/17/2019 14:40:12 04/17/19 20 04/17/2019 urina lysis , dipst ick, auto Unknown Analyte Normal Not Available [facility] [address], [place], [address], 04/17/2019 14:40:12 04/17/19 20 04/17/2019 urina lysis , dipst ick, auto Unknown Analyte Normal Not Available [facility] [address], [place], [address], 04/17/2019 14:40:12 04/17/19 20 04/17/2019 urina lysis , dipst ick, auto Unknown Analyte Negati ve Not Available [facility] [address], [place], [address], 04/17/2019 14:40:12 04/17/19 20 04/17/2019 urina lysis , dipst ick, auto Unknown Analyte Negati ve Not Available [facility] [address], [place], [address], 04/17/2019 14:40:12 04/17/19 20 04/17/2019 urina lysis , dipst ick, auto Unknown Analyte Normal Not Available [facility] [address], [place], [address], 04/17/2019 14:40:12 04/17/19 20 04/17/2019 urina lysis , dipst ick, auto Unknown Analyte Normal - 1mg/dl Not Available [facility] [address], [place], [address], 04/17/2019 14:40:12 04/17/19 20 04/17/2019 urina lysis , dipst ick, auto Unknown Analyte Negati ve Not Available [facility] [address], [place], [address], 04/17/2019 14:40:12 04/17/19 20 04/17/2019 urina lysis , dipst ick, auto Unknown Analyte Negati ve Not Available [facility] [address], [place], [address], 04/17/2019 14:40:12 04/17/19 20 04/17/2019 urina lysis , dipst ick, auto Unknown Analyte Negati ve Not Available [facility] [address] [facility] [address], [place], [address], 04/17/2019 14:40:12 04/17/19 20 04/17/2019 urina lysis , dipst ick, auto Unknown Analyte Negati ve Not Available [facility] [address] [facility] [address], [place], [address], 04/17/2019 14:40:12 04/17/19 20 04/17/2019 urina lysis , dipst ick, auto Unknown Analyte Clean Catch Not Available [facility] [address] [facility] [address], [place], [address], 04/17/2019 14:40:12 04/17/19 20 04/17/2019 urina lysis , dipst ick, auto Unknown Analyte Automa fredrick Not Available [facility] [address] [facility] [address], [place], [address], 04/17/2019 14:40:12 04/17/19 20 04/17/2019 cultu re, urine results [facility] e: CCUR Colle cted: 04/17 17:24 Site: Recei miguelito : 04/17 20:02 URINE SCREE N(CUL TURE) FINAL 04/19 09:28 04/19 COLON Y COUNT : 10,00 0 - 100,0 00 CFU/M L Three or more isola amaury; mixed skin kamala . Not Available [facility] [address] [place] [address], [place], [address], 04/19/2019 09:28:01 02/09/20 20 02/09/2020 cultu re, urine results Sourc e: CCUR Colle cted: 02/08 17:22 Site: Vianney miguelito : 02/08 20:08 URINE CULTU RE FINAL 02/10 14:22 02/10 ISOLA TE #1 COLON Y COUNT : > 100,0 00 CFU/M L Minut e alpha colon y. Not Available [facility] [address] [place], [address], 02/11/2020 14:22:52 01/13/20 20 01/13/2020 XR, chest , 2 view No observ ation record ed. [facility] [address] [place], [address], 01/14/2020 07:19:11 01/13/20 20 01/13/2020 XR, chest , 2 view No observ ation record ed. [email or web address] Not Available 2019 08:48:04 Result Notes None recorded. 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 Procedures Surgical History Date Name Laterality Status Provider Name and Address Organization Details Recorded Time 01/20/20 20 LAPAROSCOPIC SACROCOLPOPEXY (SURG) completed Isael Caicedo [facility] 01/21/2020 09:39:19 04/23/19 20 Uroflowmetry; Complex completed Maria R Arce [facility] 04/24/2019 08:46:49 04/23/19 20 Urodynamics Interpretation completed VANE QUINTANA JR, MD [address] [place], [address], [place] [facility] 04/26/2019 08:55:11 04/23/19 20 Urodynamics completed Maria R Arce [facility] 04/24/2019 08:50:10 04/17/19 20 Post Void Residual; Ultrasound completed [facility] 04/17/2019 14:44:54 Tonsillectomy completed [facility] 04/17/2019 14:36:39 biopsy of breast completed [facility] 04/17/2019 14:36:52 Cholecystectomy completed [facility] 04/17/2019 14:37:23 Bureau Teeth Extraction completed [facility] 04/17/2019 14:37:39 Appendectomy completed [facility] 04/17/2019 14:38:02 Imaging Results None recorded. Procedure Notes None recorded. Medical Equipment None Reported. Allergies No known drug allergies Medications Name Sig Start Date Stop Date Status Note LastModified by Organization Details LastModified Time Miralax 17 gram/dose oral powder TAKE 17 GRAMS BY MOUTH EVERY DAY 2020 active Not Available Not Available Not Avai lable ampicillin 500 mg capsule Take 1 capsule twice a day by oral route for 10 days. 05/10 completed Not Available Not Available Not Available simvastatin 10 mg tablet Take 1 tablet every day by oral route. active Not Available Not Available No t Available Bisoprolol Fumarate-HCT Z 2.5 mg-6.25 mg tablet Take 1 tablet every day by oral route. active Not Available Not Available No t Available meloxicam active Not Available Not Barbra ilable Not Available estradiol active Not Available Not Barbra ilable Not Available Aspir-81 active Not Available Not Avai lable Not Available multivitamin active Not Available Not Available Not Available Vitals Date Recorded Body height Body mass index (BMI) Body weight Provider Name and Address Organization Details Last Updated DateTime 04/17/2019 167.64 cm 30.7 kg/m2 10628.55 g [facility] 04/17/2019 14:21:47 Date Recorded Body height Body mass index (BMI) Body weight Provider Name and Address Organization Details Last Updated DateTime 04/23/2019 167.64 cm 30.7 kg/m2 06129.55 g Maria R Arce [facility] 04/24/2019 08:45:40 Date Recorded Body height Body mass index (BMI) Body weight Provider Name and Address Organization Details Last Updated DateTime 05/10/2020 167.64 cm 30.7 kg/m2 65615.55 g Amanda Meek [facility] 05/10/2020 12:35:57 Date Recorded Body height Body mass index (BMI) Body weight Provider Name and Address Organization Details Last Updated DateTime 05/12/2019 167.64 cm 30.7 kg/m2 53044.55 g Amanda Meek [facility] 05/12/2019 14:38:55 Date Recorded Body height Body mass index (BMI) Body weight Body temperature Provider Name and Address Organization Details Last Updated DateTime 02/09/2020 167.64 cm 30.7 kg/m2 92554.55 g 97.2 [degF] Deseriee Waterford [facility] 02/09/2020 12:47:09 Social History Question Answer Notes LastModified by [employer] Details LastModified Time Tobacco Smoking Status Never Smoker Amanda Meek [facility] 04/17/2019 14:22:26 How Much Tobacco Do You Chew? None Information not available 04/17/2019 Marital Status Informatio n not available 04/17/2019 Sex: Unknown Functional Status Question Answer Note LastModified by Naartjie Details LastModified Time What is your level of alcohol consumption? None Information not available 04/17/2019 Do you or have you ever used e-cigarettes or vape? Never used electronic cigarettes [facility] Information not available 04/17/2019 Mental Status None recorded. Family History Relationship Description Onset Age of this Age Resolved Age Notes LastModified by Organization Details LastModified Time Mother Diabetes mellitus Not available 2019 14:22:11 Father Family history of malignant neoplasm Not available 2019 14:22:18 Medical History Condition Response Arthritis Y Heart Disease Y Gynecological HistoryNo gynecological history recorded. Obstetrics History GPAL:G 0 P 0 0 0 0 Past Encounters Encounter ID Performer Location Encounter Start Date Encounter Closed Date Diagnosis/Indication Diagnosis SNOMED-CT Code Diagnosis ICD10 Code Diagnosis Note [id number] MD JULIEN VILLALOBOS JR, [facility] [address] [place] [address] 04/17/2019 13:44:23 04/17/2019 16:37:55 Urinary tract infectious disease 87168667 N39.0 Vaginal va ult prolapse 611135719 N81.89 Mixed urin eun incontinence 497975919 N39.46 [id number] MD JULIEN VILLALOBOS JR, [facility] [address] [place] [address] 04/23/2019 14:16:58 04/23/2019 15:34:03 Mixed urinary incontinence 075972288 N39.46 [id number] VANE QUINTANA JR, MD [facility] [address] [facility] [address] [place] [address] 05/12/2019 14:01:10 05/19/2019 12:56:42 Vaginal vault prolapse 502463492 N81.89 Mixed urin eun incontinence 301364138 N39.[address] incontinence 61095953 N39.3 [id number] VANE QUINTANA JR, MD [facility] [address] [facility] [address] [place] [address] 02/09/2020 12:43:24 02/11/2020 16:48:37 Urinary tract infectious disease 30281661 N39.0 Vaginal va ult prolapse 463375485 N81.89 Mixed urin eun incontinence 603651172 N39.46 [id number] VANE QUINTANA JR, MD [facility] [address] [facility] [address] [place] [address] 05/10/2020 12:33:58 05/13/2020 08:45:43 Vaginal vault prolapse 416106105 N81.89 Mixed urin eun incontinence 545247825 N39.46 Health Concerns Section Related Observation LastModified by Organization Detai ls LastModified Time None Recorded Concern Status LastModified by Organization Details LastModified Time None Recorded Advance Directives Directive None Recorded Payers Insurance Date Sequence Insurance Name Policy Number Policy Case Covered Member ID Case Member ID Guarantor Name 05/10/2020 [address] [facility] [facility] [place] [id number] Aaliyah Lanier [id number] Aaliyah Lanier 05/10/2020 2 [place] Aaliyah Lanier [id number] Aaliyah Lanier Notes Date Note Type Note Provider Name and Address Organization Details Recorded Time 04/17/2019 text/html Patient is in today for evaluation of vaginal prolapse. She is pleasant 73-year-old female who has symptomatic vaginal prolapse. She does report stress urinary incontinence and occasional urgency of urination. She denies recurrent urinary tract infections. She denies pelvic pain. She denies hematuria. She is interested in learning about surgery for pelvic prolapse. VANE QUINTANA JR, MD [facility] [place], [address], [facility] 04/20/2019 14:22:35 05/12/2019 text/html Patient is in today for evaluation of vaginal prolapse. She is pleasant 73-year-old female who has symptomatic vaginal prolapse. She does report stress urinary incontinence and occasional urgency of urination. She denies recurrent urinary tract infections. She denies pelvic pain. She denies hematuria. She is interested in learning about surgery for pelvic prolapse. Urodynamics are reviewed today revealing stress urinary incontinence and adequate detrusor function. VANE QUINTANA JR, MD [facility] [place], [address], [facility] 05/15/2019 07:25:52 02/09/2020 text/html Patient is in today for follow-up of vaginal prolapse stress incontinence. She underwent robotic-assisted laparoscopic sacral colpopexy, right ureteral lysis, and suburethral sling January 20, 2020. She is recovered uneventfully. Stress incontinence is resolved. She does not have recurrent prolapse. She is quite pleased with the outcome of surgery. MD Susy VILL[place]OBOS [place], [address], [facility] 02/16/2020 07:33:08 05/10/2020 text/html Patient is in today for follow-up of vaginal prolapse stress incontinence. She underwent robotic-assisted laparoscopic sacral colpopexy, right ureteral lysis, and suburethral sling January 20, 2020. She is recovered uneventfully. Stress incontinence is resolved. She does not have recurrent prolapse. She is quite pleased with the outcome of surgery. VANE QUINTANA JR, MD [address] [facility], [place], [address], [facility] 05/10/2020 13:29:07 OBGyn Episode No OBEpisode recorded.
--- OUTSIDE RECORDS SUMMARY | 2024-08-27 15:15 | XMS_ITS | Encounter Summary ---
Author Organization [employer] Address [address] [place] [address] Care Team Providers Care Business Analytics Director Name Role Phone Unavailable Primary Care Provider Unavailabl e Encounter Details Date Type Department Care Team (Late st Contact Info) Description 01/20/2020 Transcribed Document [facility] Family Medicine [facility] [place] [address] ProviderAntonia MD [address] [place] [address] Social History Tobacco Use Types Packs/Day Years Used Date Smoking Tobacco: Never Assessed Comments Unknown Sex and Gender Information Value Date Recorded Sex Assigned at Female 09/08/2021 4:09 PM CDT Legal Sex Female 7:13 PM CDT Gender Identity Female 09/08/2021 4:09 PM CDT Sexual Orientation Not on file documented as of this encounter Miscellaneous Notes * Cerner Conversion Note - Antonia ProviderMD - 01/20/2020 12:38 PM LAWN SERVICE SUPERVISOR WANG Main OR PreOp Summary Primary Physician: VANE QUINTANA JR, MD-URO Finalized Date/Time: 01/21/20 07:39:24 Pt. Name: JORGE BEATTY /Sex: 1945 Female Med Rec #: [id number] Physician: VANE QUINTANA JR, MD-URO Financial #: [id number] Pt. Type: O Room/Bed: 425/1 Admit/Disch: 01/20/20 03:50:00 - Institution: [facility] PreOp Case Times Entry 1 In Preop 01/20/20 09:30:00 Ready for Holding n/a Room Patient Ready for 01/20/20 11:15:00 Surgery Patient Out of Preop 01/20/20 12:16:00 Patient Out of n/a Holding Room Last Modified By: Albania Delgado, Gear Cutting Machine Operator-Nursing 01/20/20 12:38:43 SJGrace PreOp Case Times Audit 01/20/20 12:38:43 Railroad Yard Worker: [id number] Modifier: [id number] <+> 1 Patient Out of Preop Finalized By: Albania Delgado, Gear Cutting Machine Operator-Nursing Document Signatures Signed By: Albania Delgado, Gear Cutting Machine Operator-Nursing 01/20/20 12:38 Albania Delgado, Gear Cutting Machine Operator-Nursing 01/21/20 07:39 Unfinalized History Date/Time Username Reason for Unfinalizing Freetext Reason for Unfinalizing 01/21/20 07:39 [id number] Modify Pick List documented in this encounter Plan of Treatment Not on file documented as of this encounter Visit Diagnoses Not on filedocumented in this encounter
--- OUTSIDE RECORDS SUMMARY | 2024-08-27 15:15 | XMS_ITS | Encounter Summary ---
Author Organization [employer] Address [address] [place] [address] Care Team Providers Care Felled Seam Operator Chainstitch Name Role Phone Unavailable Primary Care Provider Unavailabl e Encounter Details Date Type Department Care Team (Late st Contact Info) Description 01/20/2020 Transcribed Document [facility] [place] [facility] [place] [address] ProviderAntonia MD [address] [place], [place] [id number] Social History Tobacco Use Types Packs/Day Years [...] Conversion Note - Antonia ProviderMD - 01/20/2020 11:35 AM PAPER SLITTER Time Out Documentation Entered On: 01/20/2020 11:53 EST Performed On: 01/20/2020 11:35 EST by MANAV CROSS, RN Time Out Documentation Procedure to be Performed : bilateral tap MANAV CROSS, RN - 01/20/2020 11:52 EST Electronically signed by Tr[facility] Conversion Laborer Poultry Hatchery Cerner at 06/29/2022 12:23 PM CDT documented in this encounter Plan of Treatment Not on file documented as of this encounter Visit Diagnoses Not on filedocumented in this encounter
--- OUTSIDE RECORDS SUMMARY | 2024-08-27 15:15 | XMS_ITS | Encounter Summary ---
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 Name: AALIYAH BEATTY /Sex: 1945 Female Med Rec #: [id number] Physician: VANE QUINTANA JR, MD-URO Financial #: [id number] Pt. Type: O Room/Bed: 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, First Scrub, First First Time In 01/20/20 12:20:00 01/20/20 12:20:00 01/20/20 12:20:00 Time Out 01/20/20 14:11:00 01/20/20 14:11:00 01/20/20 14:11:00 Procedure Cystoscopy Adult Sacral Colpopexy Sacral Colpopexy Robotic, Vaginal Sling Robotic, Vaginal Sling Procedure, Cystoscopy Procedure, Cystoscopy Adult Adult Other Attendee Superficial Wound Closed By: Last Modified By: Haven Chatterjee RN Davis, Aleitha E, RN Davis, Aleitha E, RN 01/20/20 14:11:58 01/20/20 14:11:58 01/20/20 14:11:58 Entry 4 Entry 5 Entry 6 Case Attendee Fanny Coffey, HELLEN BENEDICT, EMILY Harden, CALIXTO VIZCAINO CRNA Role Performed Scrub, Second Physician assistant manager pt DIRECTOR EMERGENCY SERVICES/Nurse Auto Appraiser Time In 01/20/20 12:20:00 01/20/20 12:20:00 01/20/20 12:20:00 Time Out 01/20/20 14:11:00 01/20/20 14:11:00 01/20/20 14:11:00 Procedure Cystoscopy Adult Sacral Colpopexy Sacral Colpopexy Robotic, Vaginal Sling Robotic, Vaginal Sling Procedure, Cystoscopy Procedure, Cystoscopy Adult Adult Other Attendee Superficial Wound Closed By: Last Modified By: Haven Chatterjee RN Davis, Aleitha E, RN Davis, Aleitha E, RN 01/20/20 14:11:58 01/20/20 14:11:58 01/20/20 14:11:58 Entry 7 Case Attendee Tamiko Lee Role Performed Scrub, Second Time In 01/20/20 12:20:00 Time Out 01/20/20 14:11:00 Procedure Sacral Colpopexy Robotic, Vaginal Sling Procedure, Cystoscopy Adult Other Attendee st break Superficial Wound Closed By: Last Modified By: Haven Chatterjee RN 01/20/20 14:11:58 [facility] IntraOp Case Attendance Audit 01/20/20 14:11:58 Harmonic Analyst: ALEITHADAVIS Modifier: ALEITHADAVIS 1 <+> Time Out 1 <*> Procedure Cystoscopy Adult 2 <+> Time Out 2 <*> Procedure Sacral Colpopexy Robotic, Vaginal Sling Procedure, Cystoscopy Adult 3 <+> Time Out 3 <*> Procedure Sacral Colpopexy Robotic, Vaginal Sling Procedure, Cystoscopy Adult 4 <+> Time Out 4 <*> Procedure Cystoscopy Adult 5 <+> Time Out 5 <*> Procedure Sacral Colpopexy Robotic, Vaginal Sling Procedure, Cystoscopy Adult 6 <+> Time Out 6 <*> Procedure Sacral Colpopexy Robotic, Vaginal Sling Procedure, Cystoscopy Adult 7 <+> Time Out 7 <*> Procedure Sacral Colpopexy Robotic, Vaginal Sling Procedure, Cystoscopy Adult 01/20/20 13:42:53 Harmonic Analyst: ALEITHADAVIS Modifier: ALEITHADAVIS 7 <+> Time In 7 <*> Procedure Sacral Colpopexy Robotic, Vaginal Sling Procedure, Cystoscopy Adult 01/20/20 13:42:52 Harmonic Analyst: ALEITHADAVIS Modifier: ALEITHADAVIS 1 <*> Procedure Cystoscopy Adult 2 <*> Procedure Sacral Colpopexy Robotic, Vaginal Sling Procedure, Cystoscopy Adult 3 <*> Procedure Sacral Colpopexy Robotic, Vaginal Sling Procedure, Cystoscopy Adult 4 <*> Procedure Cystoscopy Adult 5 <*> Procedure Sacral Colpopexy Robotic, Vaginal Sling Procedure, Cystoscopy Adult 6 <*> Procedure Sacral Colpopexy Robotic, Vaginal Sling Procedure, Cystoscopy Adult 01/20/20 13:42:44 Harmonic Analyst: ALEITHADAVIS Modifier: ALEITHADAVIS <+> 7 Case Attendee <+> 7 Role Performed <+> 7 Procedure <+> 7 Other Attendee 01/20/20 13:17:20 Harmonic Analyst: ALEITHADAVIS Modifier: ALEITHADAVIS <+> 1 Procedure 2 <*> Procedure Sacral Colpopexy Robotic, Vaginal Sling Procedure 3 <*> Procedure Sacral Colpopexy Robotic, Vaginal Sling Procedure <+> 4 Procedure 5 <*> Procedure Sacral Colpopexy Robotic, Vaginal Sling Procedure 6 <*> Procedure Sacral Colpopexy Robotic, Vaginal Sling Procedure 01/20/20 12:55:48 Harmonic Analyst: ALEITHADAVIS Modifier: ALEITHADAVIS 2 <+> Time In 2 <*> Procedure Sacral Colpopexy Robotic, Vaginal Sling Procedure 3 <+> Time In 3 <*> Procedure Sacral Colpopexy Robotic, Vaginal Sling Procedure <+> 4 Time In 5 <+> Time In 5 <*> Procedure Sacral Colpopexy Robotic, Vaginal Sling Procedure 6 <+> Time In 6 <*> Procedure Sacral Colpopexy Robotic, Vaginal Sling Procedure [facility] IntraOp Case Times Entry 1 Patient In Room Time 01/20/20 12:20:00 Out Room Time 01/20/20 14:11:00 Anesthesia Start Time 01/20/20 12:20:00 Stop Time 01/20/20 14:11:00 Anesthesia Ready 01/20/20 12:20:00 Surgery / Procedure Times Start Time 01/20/20 12:38:00 Stop Time 01/20/20 14:05:00 Last Modified By: Haven Chatterjee RN 01/20/20 14:11:58 [facility] IntraOp Case Times Audit 01/20/20 14:11:58 Harmonic Analyst: ALEITHADAVIS Modifier: ALEITHADAVIS <+> 1 Out Room Time <+> 1 Stop Time 01/20/20 14:10:48 Harmonic Analyst: ALEITHADAVIS Modifier: ALEITHADAVIS <+> 1 Stop Time [facility] IntraOp Cautery Entry 1 ESU Identification Cautery Type Monopolar ESU ID Number [id number] ID Type Hospital Number Cautery Settings Cut Setting 30 Coag Setting 30 Bipolar Setting 30 ESU Grounding Pad Ground Pad Type Adult Grounding Pad Site Left thigh Grounding Pad Haven Chatterjee RN Applied By Grounding Pad Site Intact Skin Condition Before Cautery Grounding Pad Site Intact Skin Condition After Cautery Last Modified By: Haven Chatterjee RN 01/20/20 12:44:01 [facility] IntraOp Communication Entry 1 Communication To Family/Significant other Comment START OF PROCEDURE Communication By Haven Chatterjee RN Date and Time 01/20/20 12:42:00 Last Modified By: Haven Chatterjee RN 01/20/20 12:43:53 [facility] IntraOp Counts Verification Entry 1 Procedure Sacral Colpopexy Robotic, Vaginal Sling Procedure, Cystoscopy Adult Count Info Count Type Sponge, Sharps, Instrument, Miscellaneous Counts Verification Baseline/pre-procedure Sequence Count Results Not Applicable Counts Performed By Count Performed By LEROY PACK ST (Scrub) Count Performed By Haven Chatterjee RN (RN) Last Modified By: Haven Chatterjee RN 01/20/20 13:17:22 [facility] IntraOp Counts Verification Audit 01/20/20 13:17:22 Harmonic Analyst: ALEITHADAVIS Modifier: ALEITHADAVIS 1 <*> Procedure Sacral Colpopexy Robotic, Vaginal Sling Procedure [facility] IntraOp Counts Final Entry 1 Procedure Sacral Colpopexy Robotic, Vaginal Sling Procedure, Cystoscopy Adult Final Count Info Count Type Sponge, Sharps, Miscellaneous Counts Verification Skin Closure/end of Sequence procedure Count Results Correct, surgeon notified Counts Performed By Count Performed By LEROY PACK ST (Scrub) Count Performed By Haven Chatterjee RN (RN) Last Modified By: Haven Chatterjee RN 01/20/20 13:56:05 [facility] IntraOp Counts Final Audit 01/20/20 13:56:05 Harmonic Analyst: ALEITHADAVIS Modifier: ALEITHADAVIS 1 <*> Procedure Sacral Colpopexy Robotic, Vaginal Sling Procedure, Cystoscopy Adult 1 <+> Count Performed By (Scrub) 01/20/20 13:17:24 Harmonic Analyst: ALEITHADAVIS Modifier: ALEITHADAVIS 1 <*> Procedure Sacral Colpopexy Robotic, Vaginal Sling Procedure [facility] IntraOp Departure from OR Entry 1 Integumentary Assessment Integumentary WDL Assessment WDL Transfer/Handoff Transfer to PACU Phase I Handoff Method Bedside/Face to face Post-op Transport Stretcher/Gurney Via Patient Transport Haven Chatterjee RN, Accompanied by CALIXTO CHAN CRNA Last Modified By: Haven Chatterjee RN 01/20/20 13:50:26 [facility] IntraOp Dressing and Packing Entry 1 Entry 2 Type Dressing Packing Location ABDOMEN Wound Dressing Item Skin Closure Glue Wound Packing Type Vaginal packing Tape Type Supplemental Applications Applied By EMILY BENEDICT PA-C Other Comments Last Modified By: Haven Chatterjee RN Davis, Aleitha E, RN 01/20/20 12:44:44 01/20/20 12:55:31 [facility] IntraOp Dressing and Packing Audit 01/20/20 12:55:31 Harmonic Analyst: CELESTINA Modifier: CELESTINA <+> 2 Type <+> 2 Wound Packing Type [facility] IntraOp Fire Risk Assessment Entry 1 Fire Info Surgical Site or 0- No Incision Above the Xyphoid Open O2 Source 0- No (Mask or Cannula) Available Ignition 1- Yes (ESU, Laser, Light Source) Fire Risk 1 Assessment Score Fire Score Fire Risk Yes Assessment Complete Fire Risk Haven Chatterjee RN Assessment Verified By Fire Risk 01/20/20 12:15:00 Assessment Verified Date/Time Fire Risk Standard Fire Yes Safety Precautions Followed Last Modified By: Haven Chatterjee RN 01/20/20 12:44:50 [facility] IntraOp General Case 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 1 Case Information OR OR 07 SJ Case Level 1 Room Verified Yes Wound Class II - Clean-Contaminated Specialty SN Urology Anesthesia Type General ASA Class 2 Diagnosis Preop Diagnosis PELVIC PROLAPSE Postop Same As Preop Yes Postop Diagnosis PELVIC PROLAPSE Last Modified By: Haven Chatterjee RN 01/20/20 12:45:32 [facility] IntraOp Implant Log Entry 1 Entry 2 Type Implant (Synthetic) Implant (Synthetic) Implant Log Implant Type Mesh Mesh Tissue Implant Type Implant MESH Y [id number] SLING SYS MID-URETH Identification [id number] Description Implant Quantity 1 1 Implant Site SACRAL vagina Implant Identification Model Number Implant Identification Serial Number Implant [id number] Identification Lot Number Implant [facility] Identification Sci:Urology/Gynecology Sci:Urology/Gynecology Bucket Pusher Name: Implant [id number] Identification Catalog Number Implant Size Implant Has an Yes Expiration Date Implant Expiration 12/09/21 11/23/22 Date Wasted Radioactive Material Time Implanted Tissue Implant Continue for Tissue Implant Documentation Tissue Identification Number Graft Prep Per Bucket Pusher Instructions: Tissue Preparation Method: Reconstitution Solution: Reconstitution Solution Lot Number Reconstitution Solution Expiration Date: Thawing Solution Thawing Solution Lot Number Thawing Solution Expiration Date Preparation Materials, Other Preparation Materials, Other Lot Number Preparation Materials, Other Expiration Date Tissue Prepared/Processed By Bucket Pusher Paperwork Completed Implant Type Comment Last Modified By: Haven Chatterjee RN Davis, Aleitha E, RN 01/20/20 12:53:31 01/20/20 13:52:26 [facility] IntraOp Implant Log Audit 01/20/20 13:52:26 Harmonic Analyst: CELESTINA Modifier: CELESTINA <+> 2 Implant Identification Description <+> 2 Implant Identification Lot Number <+> 2 Implant Identification Bucket Pusher Name: <+> 2 Implant Expiration Date <+> 2 Implant Site <+> 2 Implant Quantity <+> 2 Implant Identification Catalog Number <+> 2 Implant Type <+> 2 Type [facility] IntraOp Intraoperative Assessment Entry 1 Valid History / Yes Physical in Chart Preoperative Yes Checklist Reviewed/Evaluated Allergies Reviewed Yes Patient is Latex No Sensitive Isolation Not applicable Precautions Noted Level of WDL Consciousness (WDL = Alert, Oriented to Person, Place, and Time) Skin Assessment Yes Verified Present Upon IVs Arrival to OR Last Modified By: Haven Chatterjee RN 01/20/20 12:45:38 [facility] IntraOp Intraoperative Equipment Entry 1 Type Equipment Equipment Equipment Robot Intraop Monitoring Antiembolic Devices Antiembolic Devices Sequential compression device, knee high Antiembolic Device Bilateral Location Scopes Photo/Video Documentation Last Modified By: Haven Chatterjee RN 01/20/20 12:45:44 [facility] IntraOp Medication Admin Entry 1 Entry 2 Medication/Irrigant 1% LIDOCAINE/2ML Premarin 42.5Gm vaginal PRESERVATIVE FREE - cream - [id number] Combo Med List Time Administered Route of LOCAL VAG PACKING Administration Dose Dose Unit of Measure Volume Administered By VANE QUINTANA JR, SLABAUGH JR, THOMAS, MD-URO -URO Procedure Irrigation Irrigant Volume In Irrigant Volume Out Last Modified By: Haven Chatterjee RN Davis, Aleitha E, RN 01/20/20 12:55:13 01/20/20 12:55:13 General Comments: LIDOCAINE 1%WITH EPI 20 ML [facility] IntraOp Patient Positioning Entry 1 Procedure Sacral Colpopexy Robotic, Cystoscopy Adult Body Position Lithotomy Left Arm Position Tucked and padded at side Right Arm Position Tucked and padded at side Left Leg Position Secured in Leg Case Right Leg Position Secured in Leg Case Feet Uncrossed Yes Pressure Points Yes Checked Positioning Devices Alexis Bag, Stirrups/Leg Case, Boot Positioned By Haven Chatterjee RN, CALIXTO CHAN CRNA, SLABAUGH JR, THOMAS, MD-URO, JAK, EMILY L, PA-C Position Verified Positioning Yes Verified by Anesthesia Positioning Yes Verified by Surgeon Last Modified By: Haven Chatterjee RN 01/20/20 13:17:22 [facility] IntraOp Patient Positioning Audit 01/20/20 13:17:22 Harmonic Analyst: CELESTINA Modifier: JAADAVIS 1 <*> Procedure Sacral Colpopexy Robotic [facility] IntraOp Sign In Entry 1 Patient, Site, Yes Procedure Identified Surgical Consent Yes Confirmed Relevant Surgical Yes Documents Available Surgical Site N/A Marked by person performing procedure Anesthesia Machine Yes Check Completed Medication Checks Yes Completed Allergies Yes Airway Difficult No Airway/Aspiration Risk Difficult Yes Airway/Aspiration Intervention Equipment Available Blood Loss Risk Yes Blood Loss Yes Intervention Equipment Prepared and Ready Blood Identifiers Not applicable Verified Per Policy Hypothermia Risk Yes Warming Measures Yes Taken Last Modified By: Haven Chatterjee RN 01/20/20 12:55:46 [facility] Intra Op Sign Out Entry 1 RN Confirmation Surgical Yes Procedure(s) Identified Instrument, Sponge Yes and Sharps Counts Correct/Documented Equipment Problems N/A Documented Specimen Labeled N/A Correctly Urinary Catheter Yes Documented in IView [place] Patient Yes Recovery Concerns Reviewed with Anesthesia Provider, Surgeon and RN [place] Patient Yes Management Concerns Reviewed with Anesthesia Provider, Surgeon and RN Safety Checklist Yes Elements Complete? RN Sign Out Haven Chatterjee RN Signature RN Sign Out 01/20/20 14:10:00 Signature Date/Time Plan of Care Outcome - Fire Risk OUTCOME STATEMENT: Goal met Patient is free from injury related to surgical fire Plan of Care Outcome - Pt Positioning OUTCOME STATEMENT: Goal met Absence of signs and symptoms of positioning injury. Plan of Care Outcome - Skin Prep OUTCOME STATEMENT: Goal met Intraoperative care is consistent with measures to prevent infection Plan of Care Outcome - Xray/Images OUTCOME STATEMENT: Goal met Absence of observable signs or symptoms of radiation injury Plan of Care Outcome - Counts OUTCOME STATEMENT: Goal met Absence of signs and symptoms of injury related to extraneous objects Last Modified By: Haven Chatterjee RN 01/20/20 14:10:52 [facility] Intra Op Sign Out Audit 01/20/20 14:10:52 Harmonic Analyst: CELESTINA Modifier: JAADAVIS <+> 1 RN Sign Out Signature Date/Time [facility] IntraOp Skin Prep Entry 1 Procedure Sacral Colpopexy Robotic, Cystoscopy Adult Prescribed Yes Pre-Surgical Prep Completed Prep Area ABDOMEN, VAGINA Intraop Prep Integumentary WDL Assessment WDL Prep Agents Betadine solution, Chloraprep Prep by Haven Chatterjee RN Hair Removal Last Modified By: Haven Chatterjee RN 01/20/20 13:17:23 [facility] IntraOp Skin Prep Audit 01/20/20 13:17:23 Harmonic Analyst: JAADACARTER Modifier: ALEITHADAVIS 1 <*> Procedure Sacral Colpopexy Robotic [facility] IntraOp Surgical Procedures Entry 1 Entry 2 Entry 3 Procedure Sacral Colpopexy Robotic Vaginal Sling Procedure Cystoscopy Adult Modifiers Additional ROBOTIC SACROCOLPOPEXY, Procedure TOT SLING; RIGHT Description URETEROLYSIS; CYSTO Primary Procedure Yes No No Primary Surgeon VANE QUINTANA JR, SLABAUGH JR, MARIANO CIFUENTES JR, THOMAS, MD-URO MD-URO MD-URO Start 01/20/20 12:38:00 01/20/20 12:38:00 01/20/20 12:38:00 Stop 01/20/20 14:05:00 01/20/20 14:05:00 01/20/20 14:05:00 Physician States Cecum Reached Anesthesia Type General General General Specialty SN Urology SN Urology SN Urology Wound Class I - Clean II - Clean-Contaminated I - Clean Last Modified By: Haven Chatterjee RN Davis, Aleitha E, RN Davis, Aleitha E, RN 01/20/20 14:10:53 01/20/20 14:10:53 01/20/20 14:10:53 [facility] IntraOp Surgical Procedures Audit 01/20/20 14:10:53 Harmonic Analyst: ALEITHADAVIS Modifier: ALEITHADAVIS <+> 1 Stop <+> 2 Stop <+> 3 Start <+> 3 Stop 01/20/20 13:17:16 Harmonic Analyst: ALEITHADAVIS Modifier: ALEITHADAVIS 1 <*> Procedure Sacral Colpopexy Robotic 1 <*> Additional Procedure Description ROBOTIC SACROCOLPOPEXY, TOT SLING <+> 3 Procedure <+> 3 Primary Procedure <+> 3 Primary Surgeon <+> 3 Specialty <+> 3 Wound Class <+> 3 Anesthesia Type [facility] IntraOp Time Out Entry 1 Procedure to be Sacral Colpopexy Performed Robotic, Vaginal Sling Procedure, Cystoscopy Adult Time Out Time Out Pause Time 01/20/20 12:37:00 All activity Yes suspended (unless life threatening emergency) Team Verbally Correct patient Confirms Information identity, Correct side and site are marked, Consent form is present and accurate, Agreement on the procedure to be done, Correct patient position, Relevant images/results properly labeled/appropriately displayed, Confirm antibiotics have been administered, Confirm the skin prep has dried, Confirm prosthesis/implant/devic e is present, Performed in location of procedure after prepped/draped Antibiotic Yes Prophylaxis Administered Or In Progress Within the Last 60 Minutes Beta Huey Yes Administered Venous Yes Thromboembolism Prophylaxis Required Anticipated Critical Events Surgeon None expected Anesthesia Provider None expected Nursing Assures Sterility of instruments, Implant Availability Essential Imaging Yes Labeled and Displayed Last Modified By: Haven Chatterjee RN 01/20/20 13:17:23 [facility] IntraOp Time Out Audit 01/20/20 13:17:23 Harmonic Analyst: CELESTINA Modifier: CELESTINA 1 <*> Procedure to be Performed Sacral Colpopexy Robotic, Vaginal Sling Procedure Case Comments <None> Finalized By: Gia Pinto RN-EDUCATOR I Document Signatures Signed By: Haven Chatterjee RN 01/20/20 14:12 Gia Pinto RN-EDUCATOR I 01/23/20 16:20 Unfinalized History Date/Time Username Reason for Unfinalizing Freetext Reason for Unfinalizing 01/23/20 16:19 [id number] Chart Audit documented in this encounter Plan of Treatment Not on file documented as of this encounter Visit Diagnoses Not on filedocumented in this encounter
--- OUTSIDE RECORDS SUMMARY | 2024-08-27 15:15 | XMS_ITS ---
Author Organization Unknown TREATMENT PLAN Planned Care Start Date Provider Encounter for Check-up [id number] [facility]
--- OUTSIDE RECORDS SUMMARY | 2024-08-27 15:15 | XMS_ITS | Encounter Summary ---
Author Organization [employer] Address [address] [place] [address] Care Team Providers Care Mill Labor Supervisor Name Role Phone Unavailable Primary Care Provider Unavailabl e Encounter Details Date Type Department Care Team (Late st Contact Info) Description 01/13/2020 Transcribed Document [facility] [place] [facility] [place] [address] ProviderAntonia MD [address] [place] [address] Social History Tobacco Use Types [...] Cerner Conversion Note - Antonia ProviderMD - 01/13/2020 12:08 PM DOT NET DEVELOPER PAT Adult Entered On: 01/13/2020 12:12 EST Performed On: 01/13/2020 12:08 EST by JUAN ANTONIO HUSTON RN Vital Measurements Temperature Source : Temporal artery scanning Temperature Mode : Fahrenheit Temperature, Fahrenheit : 98.0 Deg F Clinical Temperature, C : 36.7 Deg C Peripheral Pulse Rate : 58 bpm (LOW) Respiratory Rate : 18 Breaths/Min Systolic Blood Pressure : 130 mmHg Diastolic Blood Pressure : 61 mmHg Oxygen Saturation : 96 % Oxygen Therapy Mode : Room air JUAN ANTONIO HUSTON RN - 01/13/2020 12:08 EST Height and Weight, Clinical Dosing Height Source : Stated Height Entry Format : [place] Height, Feet : 5 ft(Converted to: 152 cm, 60 Inch) Height, Inches : 6 Inch(Converted to: 0 ft 6 Inch, 15.24 cm) Clinical Height : 167.64 cm Weight Source : Standing scale Weight Entry Format : [place] Clinical Dosing Weight : 86.36 kg Weight, Pounds : 190 lb Body Surface Area (BSA) : 1.96 m2 Body Mass Index : 30.7 kg/m2 (HI) [place] Body Weight : 59 kg JUAN ANTONIO HUSTON RN - 01/13/2020 12:08 EST Health Histories Smoking Status : Never (less than 100 in lifetime; none in last 30 days) Smokeless Tobacco Status : Never JUAN ANTONIO HUSTON RN - 01/13/2020 12:08 EST Social History (As Of: 01/13/2020 12:12:38 EST) Tobacco: Never (less than 100 in lifetime) Smoking Status. Never Smokeless Tobacco Status. (Last Updated: 01/13/2020 12:08:19 EST by JUAN ANTONIO HUSTON RN) Alcohol: Alcohol Use History No. (Last Updated: 01/13/2020 12:08:19 EST by JUAN ANTONIO HUSTON RN) Substance Abuse: Drug Use Hx: No. (Last Updated: 01/13/2020 12:08:19 EST by JUAN ANTONIO HUSTON RN) Infectious Disease History Has the patient ever been tested for COVID-19? : Yes, Patient stated results Negative Date of COVID-19 test known? : No Does patient have symptoms of COVID-19? : No COVID19 Screening : No Experiencing Infectious Disease Symptoms : No symptoms Physical contact outside [place] in the last 30 days : No Infectious Disease History : Chicken pox/Shingles, Measles Tuberculosis Symptoms : None JUAN ANTONIO HUSTON RN - 01/13/2020 12:08 EST COVID19 PreProcedure Screening Is this an Emergent or Add on Procedure? : No Has patient been isolated since the test : N/A - PreProcedure, in-person visit Exposed to COVID19 symptoms since test? : N/A - PreProcedure, in-person visit JUAN ANTONIO HUSTON RN - 01/13/2020 12:08 EST Anesthesia/Transfusion History Family History of Anesthesia Reaction : No prior transfusion(s) Transfusion History : Prior anesthesia without reaction Family History of Anesthesia Reaction : None JUAN ANTONIO HUSTON RN - 01/13/2020 12:08 EST Functional Assessment Functional ADL Evaluation Index EBN Bathing : Independent (2) Dressing : Independent (2) Toileting : Independent (2) Transferring Bed or Chair : Independent (2) Continence : Independent (2) Feeding : Independent (2) JUAN ANTONIO HUSTON RN - 01/13/2020 12:08 EST ADL Index Score : 12 JUAN ANTONIO HUSTON RN - 01/13/2020 12:08 EST Advance Directive Patient has Advance Directive *Q : No, patient refuses Advance Directive information JUAN ANTONIO HUSTON RN - 01/13/2020 12:08 EST [place] Suicide Severity Rating Scale (C-SSRS) CSSRS Past Month Wish to be : No CSSRS Past Month Suicidal Thoughts : No CSSRS Lifetime Suicide Behavior : No Suicide Severity Rating Score : 0 Suicide Severity Rating : No Additional Care Required at this time JUAN ANTONIO HUSTON RN - 01/13/2020 12:08 EST Psychosocial History Do You Have a History of the Following? : Patient denies history Currently in Unsafe Situation : No JUAN ANTONIO HUSTON RN - 01/13/2020 12:08 EST Teaching/Learning Assessment Barriers To Learning : None evident Individuals Taught : Patient Readiness to Learn : Cooperative Readiness to Learn : Explanation, Printed materials JUAN ANTONIO HUSTON RN - 01/13/2020 12:08 EST Education Topics, Periop Preadmission Perioperative Education Grid Arrival Time/Place : Verbalizes understanding CHG Preoperative Bathing/Cloths : Verbalizes understanding Infection Control : Verbalizes understanding NPO Status/Directions : Verbalizes understanding Preprocedure Preparations : Verbalizes understanding Preprocedure Tests/Labs : Verbalizes understanding Remove Body Piercings : Verbalizes understanding Responsible Adult : Verbalizes understanding Take/Hold Medications Pre-Procedure : Verbalizes understanding JUAN ANTONIO HUSTON RN - 01/13/2020 12:08 EST General Info Want Family/Rep/Phys Notified of Admit : No Emergency Contact #1 : Jayden Emergency Contact #1 Emergency Contact #1 Relationship : spouse Emergency Contact #2 : - Emergency Contact #2 Phone Number : - Emergency Contact #2 Relationship : - Primary Language : Armenian Communication Barrier : None Physician Locums Urgent Care Needed : No JUAN ANTONIO HUSTON RN - 01/13/2020 12:08 EST Lukas Scale Lukas Sensory Perception : No impairment Lukas Moisture : Rarely moist Lukas Activity : Walks frequently Lukas Mobility : No limitation Lukas Nutrition : Excellent Lukas Friction and Shear : No apparent problem Lukas Score : 23 JUAN ANTONIO HUSTON, RN - 01/13/2020 12:08 EST Sleep Apnea Risk Assmt Hx of Obstructive Sleep Apnea Diagnosis : No Snore Loudly : Yes Tired, Fatigued, or Sleepy During Day : No Observed Stopping Breathing During Sleep : No Have/Are Being Treated for Hypertension : Yes BMI Greater Than 35 kg/m2 : No Age over 50 Years Old : Yes Neck Circumference Greater Than 40 cm : No Gender Male : No STOP-BANG Sleep Apnea Risk Level Score : 3 JUAN ANTONIO HUSTON RN - 01/13/2020 12:08 EST documented in this encounter Plan of Treatment Not on file documented as of this encounter Visit Diagnoses Not on filedocumented in this encounter
--- OUTSIDE RECORDS SUMMARY | 2024-08-27 15:15 | XMS_ITS | Encounter Summary ---
Author Organization [employer] Address [address] [place] [address] Care Team Providers Care Valuer Name Role Phone Unavailable Primary Care Provider Unavailabl e Encounter Details Date Type Department Care Team (Late st Contact Info) Description 01/13/2020 Transcribed Document [facility] [place] [facility] [place] [address] ProviderAntonia MD [facility] [place], [place] [id number] Social History Tobacco Use Types Packs/Day Years [...] Conversion Note - Antonia ProviderMD - 01/13/2020 11:00 AM FOOTWEAR SALES REPRESENTATIVE Patient: JORGE LANIER Age: 74 Years Sex: Female : 1945 Chief Complaint Pelvic Prolapse Primary Care Provider DAPHNE GLOVER MD History of Present Illness This patient is a pleasant 74 yo WF who presents with Pelvic Prolapse. She states that it has been present for a year. It has begun to affect her ADLs. She was referred to Dr Murillo and was offered a Robotic Sacrocolpopexy and has agreed to the procedure. Pt denies h/o DVT/PE. No trouble with anesthesia in the past. No COPD/LUDIN/Asthma. Review of Systems Constitutional: Neg for fevers or chills. Eyes: Neg for blurry vision or change in vision. ENT: Neg for sore throat, ear pain, or dizziness. Cardiac: Neg for chest pain or dyspnea on exertion. Respiratory: Neg for shortness of breath. Gastrointestinal: Neg for nausea, vomiting, diarrhea, or constipation. Musculoskeletal: Neg for LE pain or swelling. Genitourinary: Pos for Pelvic Prolapse. Neurologic: Neg for headaches or seizures. Psychiatric: Neg for anxiety and depression. Integumentary: Neg for rash. Vital Signs T: 36.7 ??C HR: 58(Peripheral) RR: 18 BP: 130/61 SpO2: 96% HT: 167.64 cm WT: 86.36 kg BMI: 30.7 Oxygen Settings (Last) Oxygen Therapy Mode: Room air (01/13/20 12:08:00) Physical Exam Constitutional: This is a pleasant 74 yo WF in no acute distress. HEENT: Normocephalic, atraumatic. PEERLA. Extraocular muscles intact. Conjunctiva pink without exudate. Oropharynx pink and moist. Neck supple. No JVD. Cardiac: SI, S2. RRR. No M/R/G. Respiratory: Lungs CTA bilaterally. No wheezes, rales, or rhonchi. Abdomen: Soft, nontender, nondistended. Active bowel sounds. No visible masses. Musculoskeletal: Bilateral LE without clubbing, cyanosis or edema. Integumentary: Skin is pink, warm and dry. No rashes. Neurologic: CN II-XII grossly intact. Psychiatric: Judgment and affect appropriate. Assessment/Plan 1. Preoperative Evaluation- Pt underwent preoperative laboratory workup and diagnostic studies. 2. Pelvic Prolapse- Proceed with surgery as scheduled with Dr Murillo on 01/20/2020. 3. Hyperlipidemia- Continue Simvastatin. 4. H/o Sinus Tachycardia- Continue Bisoprolol. 5. HRT- Pt advised to hold HRT 7 days prior to surgery. Problem List/Past Medical History Ongoing At risk for sleep apnea High cholesterol Hormone replacement therapy HTN (hypertension) Procedure/Surgical History Appendectomy, Colonoscopy, heart cath, Hysterectomy, Lumpectomy of breast, skin cancer removed basal cell on face, spinal surgery with plate, Tonsillectomy. Home Medications (6) Active aspirin 81 mg, Oral, Daily bisoprolol 2.5 mg, Oral, Daily estradiol 2 mg, Oral, Daily meloxicam 15 mg, Oral, Daily Multiple Vitamins oral tablet 1 Tab, Oral, Daily simvastatin 40 mg, Oral, At Bedtime Allergies Uncoded Allergy (See Comment) Social History Alcohol Alcohol Use History No. Substance Abuse Drug Use Hx: No. Tobacco Never (less than 100 in lifetime) Smoking Status. Never Smokeless Tobacco Status. Family History Pt mother at 86 from CAD. Pt father at 83 from COPD. Diagnostic Results EKG- Sinus Elier, 59 CXR- NAD Lab Results Test Name Test Result Date/Time Sodium Level 141 mmol/L 01/13/2020 12:03 EST Potassium Level 4.0 mmol/L 01/13/2020 12:03 EST Chloride Level 108 mmol/L 01/13/2020 12:03 EST Carbon Dioxide Level 29 mmol/L 01/13/2020 12:03 EST Anion Gap 8 (Low) 01/13/2020 12:03 EST Glucose Level 91 mg/dL 01/13/2020 12:03 EST Blood Urea Nitrogen 10 mg/dL 01/13/2020 12:03 EST Creatinine Level 0.70 mg/dL 01/13/2020 12:03 EST eGFR >60 mL/min/1.73m2 01/13/2020 12:03 EST eGFR NonAfrican >60 mL/min/1.73m2 01/13/2020 12:03 EST Bun/Creatinine 14.3 01/13/2020 12:03 EST Calcium Level 9.3 mg/dL 01/13/2020 12:03 EST WBC 5.1 K/uL 01/13/2020 12:03 EST RBC 4.75 Million/uL 01/13/2020 12:03 EST Hgb 14.2 Gram/dL 01/13/2020 12:03 EST Hct 42.6 % 01/13/2020 12:03 EST MCV 89.7 fL 01/13/2020 12:03 EST MCH 29.9 pg 01/13/2020 12:03 EST MCHC 33.3 Gram/dL 01/13/2020 12:03 EST Platelet Count 202 K/uL 01/13/2020 12:03 EST MPV 10.9 fL 01/13/2020 12:03 EST RDW 12.1 % 01/13/2020 12:03 EST Slide Review No 01/13/2020 12:03 EST PT 11.5 Second(s) 01/13/2020 12:03 EST INR 1.1 01/13/2020 12:03 EST PTT 33.9 Second(s) (High) 01/13/2020 12:03 EST Electronically signed by Tracie, [facility] Conversion Supervisor Heat Treating Cerner at 06/29/2022 12:18 PM CDT documented in this encounter Plan of Treatment Not on file documented as of this encounter Visit Diagnoses Not on filedocumented in this encounter
--- OUTSIDE RECORDS SUMMARY | 2024-08-27 15:16 | XMS_ITS | Encounter Summary ---
Author Organization [employer] Address [address] [place] [address] Care Team Providers Care Associate Artistic Director Name Role Phone Unavailable Primary Care Provider Unavailabl e Encounter Details Date Type Department Care Team (Late st Contact Info) Description 01/21/2020 Transcribed Document [facility] [place] [facility] [place] [address] ProviderAntonia MD [address] [place] [address] Social History Tobacco Use Types Packs/Day Years Used Date Smoking Tobacco: Never Assessed Comments Unknown Sex and Gender Information Value Date Recorded Sex Assigned at Female 09/08/2021 4:09 PM CDT Legal Sex Female 7:13 PM CDT Gender Identity Female 09/08/2021 4:09 PM CDT Sexual Orientation Not on file documented as of this encounter Miscellaneous Notes * Cerner Conversion Note - Historical ProviderMD - 01/21/2020 12:15 PM GSA COORDINATOR Attempt to Treat Entered On: 01/21/2020 16:16 EST Performed On: 01/21/2020 12:15 EST by SHAVON PAVON Attempt to Treat Unable to Treat Due To : Patient Unavailable Inability to Treat Comment : Attempted to respond to Living Will referral; Ms. Lanier was discharged and taken downstairs just before I arrived SHAVON PAVON - 01/21/2020 16:15 EST documented in this encounter Plan of Treatment Not on file documented as of this encounter Visit Diagnoses Not on filedocumented in this encounter
--- OUTSIDE RECORDS SUMMARY | 2024-08-27 15:16 | XMS_ITS | Encounter Summary ---
Author Organization [employer] Address [address] [place] [address] Care Team Providers Care Forest Manager Name Role Phone Unavailable Primary Care Provider Unavailabl e Encounter Details Date Type Department Care Team (Late st Contact Info) Description 01/21/2020 Transcribed Document [facility] [place] [facility] [place] [address] ProviderAntonia MD [address] [place], [place] [phone] Social History Tobacco Use Types Packs/Day Years Used Date Smoking Tobacco: Never Assessed Comments Unknown Sex and Gender Information Value Date Recorded Sex Assigned at Female 09/08/2021 4:09 PM CDT Legal Sex Female 7:13 PM CDT Gender Identity Female 09/08/2021 4:09 PM CDT Sexual Orientation Not on file documented as of this encounter Miscellaneous Notes * Cerner Conversion Note - Antonia ProviderMD - 01/21/2020 5:00 AM WAXER Chart Check - Review Order Profile Entered On: 01/21/2020 4:28 EST Performed On: 01/21/2020 5:00 EST by Karma Ibarra RN Chart Check Powerplans Initiated/Discontinued as Appropriate : Yes All Active Orders Reviewed : Yes Karma Ibarra RN - 01/21/2020 4:28 EST documented in this encounter Plan of Treatment Not on file documented as of this encounter Visit Diagnoses Not on filedocumented in this encounter
--- OUTSIDE RECORDS SUMMARY | 2024-08-27 15:16 | XMS_ITS | Referral Summary ---
Author Organization [email or web address] Address [address] [place] [address] Care Team Providers Care Environmental Services Lead Name Role Phone Unavailable Primary Care Provider Unavailabl e Social History Tobacco Use Types Packs/Day Years Used Date Smoking Tobacco: Never Assessed Comments Unknown Sex and Gender Information Value Date Recorded Sex Assigned at Female 09/08/2021 4:09 PM CDT Legal Sex Female 7:13 PM CDT Gender Identity Female 09/08/2021 4:09 PM CDT Sexual Orientation Not on file Plan of Treatment Not on file
--- OUTSIDE RECORDS SUMMARY | 2024-08-27 15:16 | XMS_ITS | Clinical Summary ---
Author Organization [employer] Address [address] [place] [address] Care Team Providers Care Draw Frame Runner Name Role Phone Unavailable Primary Care Provider [...]
--- OUTSIDE RECORDS SUMMARY | 2024-08-27 15:16 | XMS_ITS | Encounter Summary ---
Author Organization [employer] Address [address] [place] [address] Care Team Providers Care Residential Supervisor Name Role Phone Unavailable Primary Care Provider Unavailabl e Encounter Details Date Type Department Care Team (Late st Contact Info) Description 01/21/2020 Transcribed Document [facility] [place] [facility] [place] [address] ProviderAntonia MD [address] [place] [address] Social History Tobacco Use Types [...] Conversion Note - Antonia ProviderMD - 01/21/2020 12:50 PM LICENSED ARCHITECT Nursing Discharge Summary Entered On: 01/21/2020 12:54 EST Performed On: 01/21/2020 12:50 EST by DAPHNE BERNARD RN Discharge Documentation Discharge Date/Time : 01/21/2020 12:00 EST Patient Disposition, General : Discharge Discharge To : Home with ambulatory/outpatient follow-up Mode Of Departure, General Discharge : Wheelchair with adult Accompanied By, Discharge : Unaccompanied IV Discontinued : Yes Personal Belongings With Patient : Yes Pt's Own Supply of Medications Returned : No patient supply of medications to return Prescriptions Given to Patient : Yes Discharge Instructions Reviewed With, Opportunity For Questions Given : Patient Patient Education Completed : Yes Number of Prescriptions Given : 4 Teaching Method : Explanation, Printed materials Teaching Evaluation : Verbalizes understanding DAPHNE BERNARD RN - 01/21/2020 12:50 EST documented in this encounter Plan of Treatment Not on file documented as of this encounter Visit Diagnoses Not on filedocumented in this encounter
--- OUTSIDE RECORDS SUMMARY | 2024-08-27 15:16 | XMS_ITS | Encounter Summary ---
Author Organization [employer] Address [address] [place] [address] Care Team Providers Care Uniform Force Captain Name Role Phone Unavailable Primary Care Provider Unavailabl e Encounter Details Date Type Department Care Team (Late st Contact Info) Description 01/21/2020 Transcribed Document [facility] [place] [facility] [place] [address] ProviderAtnonia MD [address] [place] [id number] Social History Tobacco Use Types Packs/Day Years [...] Conversion Note - Historical ProviderMD - 01/21/2020 10:34 AM [employer] HCM CONSULTANT Attempt to Treat Entered On: 01/21/2020 10:40 EST Performed On: 01/21/2020 10:34 EST by SHAVON PAVON Attempt to Treat Unable to Treat Due To : Patient Unavailable Inability to Treat Comment : Atttempted to respond to Living Will referral; Ms. Lanier was indisposed; Will attempt later SHAVON PAVON - 01/21/2020 10:39 EST documented in this encounter Plan of Treatment Not on file documented as of this encounter Visit Diagnoses Not on filedocumented in this encounter
--- OUTSIDE RECORDS SUMMARY | 2024-08-27 15:16 | XMS_ITS | Encounter Summary ---
Author Organization [employer] Address [address] [place] [address] Care Team Providers Care Mother'S Helper Name Role Phone Unavailable Primary Care Provider Unavailabl e Encounter Details Date Type Department Care Team (Late st Contact Info) Description 01/21/2020 Transcribed Document [facility] [place] [facility] [place] [address] ProviderAntonia MD [address] [place], [place] [phone] Social History Tobacco Use Types Packs/Day Years [...] Conversion Note - Antonia ProviderMD - 01/21/2020 2:00 AM STONE DRESSER Director Ambulatory Details Entered On: 01/21/2020 4:28 EST Performed On: 01/21/2020 2:00 EST by Karma Ibarra RN Order Details Isolation Precautions Order Detail : Standard Precautions Order Detail : N/A IV Order Detail : 1 Oxygen Order Detail : 0 Lift/Transfer : Independent Central Line Order Detail : No Room Service : Appropriate Arterial Line : No Patient Needs Meds Crushed/Liquid : No Karma Ibarra RN - 01/21/2020 4:28 EST documented in this encounter Plan of Treatment Not on file documented as of this encounter Visit Diagnoses Not on filedocumented in this encounter
--- OUTSIDE RECORDS SUMMARY | 2024-08-27 15:16 | XMS_ITS | Encounter Summary ---
Author Organization [employer] [facility] Address [address] [place] [address] Care Team Providers Care Tank Driver Name Role Phone Unavailable Primary Care Provider Unavailabl e Encounter Details Date Type Department Care Team (Late st Contact Info) Description 01/20/2020 Transcribed Document [facility] [place] [facility] [place] [address] ProviderAntonia MD [facility] [place] [address] Social History Tobacco Use Types [...] Conversion Note - Antonia ProviderMD - 01/20/2020 4:56 PM UPPER SHAPER Patient Education Materials Follows:and Gynecology Anterior and Posterior Colporrhaphy and Sling Procedure Anterior and posterior colporrhaphy and sling procedure are combined surgical procedures that treat weakness in the front (anterior) or back (posterior) christopher of your vagina. When weakness occurs in the anterior wall of the vagina, the bladder can bulge into the vagina (cystocele). When weakness occurs in the posterior wall of the vagina, the rectum can bulge into the vagina (rectocele). This condition is called pelvic organ prolapse. In this procedure, a surgical mesh sling will be placed around the tube that empties urine from your bladder (urethra). The sling will hold your urethra and bladder in place to prevent urine leakage (incontinence). This surgery is usually done through incisions in your vagina. It can also be done through incisions in your lower abdominal or groin area. You may need this surgery if pelvic organ prolapse causes symptoms that interfere with your daily life and cannot be corrected with other treatments. Tell a health care provider about: ??? Any allergies you have. ??? All medicines you are taking, including vitamins, herbs, eye drops, creams, and ceqs-szw-jrbfeaw medicines. ??? Any problems you or family members have had with anesthetic medicines. ??? Any blood disorders you have. ??? Any surgeries you have had. ??? Any medical conditions you have. ??? Whether you are or may be . What are the risks? Generally, this is a safe procedure. However, problems may occur, including: ??? Infection. ??? Bleeding. ??? Allergic reactions to medicines or dyes. ??? Damage to other structures or organs. ??? Incontinence. ??? A blood clot that travels to your lung. ??? Nerve damage. ??? Painful sex. ??? Urine leakage into the vagina. ??? Constipation. ??? Tissue damage from the sling over time. The sling may need to be removed. What happens before the procedure? Staying hydrated ??? Follow instructions from your health care provider about hydration, which may include: ? Up to 2 hours before the procedure ? you may continue to drink clear liquids, such as water, clear fruit juice, black coffee, and plain tea. Eating and drinking restrictions ??? Follow instructions from your health care provider about eating and drinking, which may include: ? 8 hours before the procedure ? stop eating heavy meals or foods such as meat, fried foods, or fatty foods. ? 6 hours before the procedure ? stop eating light meals or foods, such as toast or cereal. ? 6 hours before the procedure ? stop drinking milk or drinks that contain milk. ? 2 hours before the procedure ? stop drinking clear liquids. General instructions ??? Ask your health care provider about: ? Changing or stopping your regular medicines. This is especially important if you are taking diabetes medicines or blood thinners. ? Taking medicines such as aspirin and ibuprofen. These medicines can thin your blood. Do not take these medicines before your procedure if your health care provider instructs you not to. ??? You may be given antibiotics to help prevent infection. ??? You may be instructed to use estrogen cream in your vagina to help prevent complications and promote healing. ??? Plan to have someone take you home from the hospital. What happens during the procedure? To reduce your risk of infection: ? Your health care team will wash or sanitize their hands. ? Your skin will be washed with soap. ? Hair may be removed from the surgical area. ??? An IV tube may be inserted into one of your veins. ??? You will be given one or more of the following: ? A medicine to help you relax (sedative). ? A medicine that is injected into your spine to numb the area below and slightly above the injection site (spinal anesthetic). ? A medicine to make you fall asleep (general anesthetic). ??? You may be given antibiotics through your IV. ??? You will lie down on the operating table with your feet in stirrups. ??? A small, thin tube (catheter) will be inserted through your urethra into your bladder to drain urine during surgery and recovery. ??? An instrument (vaginal speculum) will be used to hold your vagina open. ??? To correct a cystocele: ? An incision will be made in the front wall of your vagina. ? Your bladder will be placed back into normal position. ? Weak or excess vaginal lining may be removed. ? The front wall of your vagina will be closed with stitches (sutures). ??? To correct a rectocele: ? An incision will be made in the back wall of your vagina. ? Your rectum will be placed back into normal position. ? Weak or excess vaginal lining may be removed. ? The back wall of your vagina will be closed with sutures. ??? To place a sling: ? Small incisions may be made inside your vagina or in your lower abdominal or groin area to insert the sling. ? The sling will be placed around your urethra and attached to strong tissues inside your abdomen. ? These incisions may be closed with sutures or glue. ??? Gauze packing will be placed inside your vagina. ??? The procedure may vary among health care providers and hospitals. What happens after the procedure? Your blood pressure, heart rate, breathing rate, and blood oxygen level will be monitored until the medicines you were given have worn off. ??? You will be given pain medicine as needed. ??? You will start on a liquid diet and move to a regular diet. ??? You will be encouraged to get up and walk as soon as you are able. ??? You may need to wear compression stockings. They help prevent blood clots and reduce swelling in your legs. ??? Your IV, urinary catheter, and vaginal packing may be removed before you go home. ??? Do not drive for 24 hours if you were given a sedative. Summary ??? Anterior and posterior colporrhaphy and sling procedure are combined surgical procedures that treat weakness in the anterior or posteriorwalls of your vagina. ??? Plan to have someone take you home from the hospital or clinic. ??? After the procedure, you will be encouraged to start drinking and eating and be up and walking as soon as you are able. ??? The IV, urinary catheter, and vaginal packing may be removed before you go home. This information is not intended to replace advice given to you by your health care provider. Make sure you discuss any questions you have with your health care provider. Document Released: 02/26/2017 Document Revised: 02/08/2018 Document Reviewed: 02/26/2017 [employer] Patient Education ? 2020 [employer]. Sacrocolpopexy Sacrocolpopexy is a surgical procedure that is done to return the top part of the vagina (vaginal vault) to its normal position inside the pelvis. This procedure is done when the vaginal vault falls down into the lower vagina (vaginal prolapse). It repairs the condition and relieves its symptoms, which may include bowel or bladder problems, backache, or dragging, aching feeling. You may need this procedure if your pelvic muscles have become weak after childbirth, or if you have had surgery to remove your uterus (hysterectomy). During the procedure, a surgeon may use a surgical mesh to lift and support your vagina. Tell a health care provider about: ??? Any allergies you have. ??? All medicines you are taking, including vitamins, herbs, eye drops, creams, and haap-pjp-ljdxmns medicines. ??? Any problems you or family members have had with anesthetic medicines. ??? Any blood disorders you have. ??? Any surgeries you have had. ??? Any medical conditions you have. ??? Whether you are or may be . What are the risks? Generally, this is a safe procedure. However, problems may occur, including: ??? The prolapse happening again after surgery. This is the most common problem. ??? Bleeding. ??? Pain. ??? Pain or reduced sensation during sexual intercourse. ??? Infection. ??? Loss of urinary or bowel control. ??? Movement or loss of the surgical mesh. ??? Formation of a blood clot in the leg. ??? Having a blood clot travel to the lungs. Be sure to talk with your health care provider about the risks of this procedure and the options available to you for the management of your problem. What happens before the procedure? Staying hydrated Follow instructions from your health care provider about hydration, which may include: ??? Up to 2 hours before the procedure ? you may continue to drink clear liquids, such as water, clear fruit juice, black coffee, and plain tea. Eating and drinking restrictions Follow instructions from your health care provider about eating and drinking, which may include: ??? 8 hours before the procedure ? stop eating heavy meals or foods such as meat, fried foods, or fatty foods. ??? 6 hours before the procedure ? stop eating light meals or foods, such as toast or cereal. ??? 6 hours before the procedure ? stop drinking milk or drinks that contain milk. ??? 2 hours before the procedure ? stop drinking clear liquids. General instructions ??? Ask your health care provider about: ? Changing or stopping your regular medicines. This is especially important if you are taking diabetes medicines or blood thinners. ? Taking tvvs-bob-hpknzqd medicines, vitamins, herbs, and supplements. ? Taking medicines such as aspirin and ibuprofen. These medicines can thin your blood. Do not take these medicines unless your health care provider tells you to take them. ??? You may need to use a certain diet and medicines to clean out your digestive system (bowel prep): ? Follow your health care provider's instructions. Bowel prep is done to make sure your bowel is empty for the procedure. It can also prevent constipation. ? You may need to start your bowel prep a few days before the procedure. ??? You may be required to use a vaginal cream to strengthen your vaginal tissues. Use it as told by your health care provider. ??? Plan to have someone take you home from the hospital or clinic. What happens during the procedure? To reduce your risk of infection: ? Your health care team will wash or sanitize their hands. ? Hair may be removed from the surgical area. ? Your skin will be washed with soap. ??? An IV will be inserted into one of your veins. ??? You will be given one or more of the following: ? A medicine to help you relax (sedative). ? A medicine to make you fall asleep (general anesthetic). ? A?medicine that is injected into your spine to numb the area below and slightly above the injection site (spinal anesthetic). ? An antibiotic medicine to prevent infection. ??? A tube (catheter) will be inserted to drain your bladder. ??? Your surgeon will perform the surgery using one of the following methods: ? Open surgery. The surgery will be done through a small incision made in the skin on your lower abdomen. ? Laparoscopic surgery. The surgery will be done through several tiny incisions, using long instruments and a telescopic camera. In some cases, laparoscopic surgery will be done by remote control (robotic surgery). ??? Your surgeon will make one or more incisions and then separate your vagina from your bowel and your bladder. ??? Your surgeon will push up the vaginal prolapse from below and attach a surgical mesh to your vagina. ??? The mesh will be used to lift your vaginal vault. It will be attached to a part of your tailbone with stitches (sutures) or anastacia. ??? Your surgeon will close the incisions with stitches or anastacia. The procedure may vary among health care providers and hospitals. What happens after the procedure? Your blood pressure, heart rate, breathing rate, and blood oxygen level will be monitored until the medicines you were given have worn off. ??? You may have a bandage in your vagina for a few days. ??? You will be encouraged to walk when you can get out of bed. Walking helps prevent blood clots. ??? You will get fluids and nutrition through an IV until you can start eating on your own. ??? You will be given pain medicine as needed. You may also be given antibiotics to prevent infection and a medicine to prevent blood clots. ??? You may have your catheter removed soon after your surgery. Summary ??? Sacrocolpopexy is a surgical procedure that is done to repair vaginal prolapse, a condition in which the top part of the vagina (vaginal vault) has fallen down into the lower vagina. ??? The surgery will relieve symptoms such as bowel or bladder problems, backache, or dragging, aching feeling. ??? During the procedure, a surgeon may use a surgical mesh to lift and support your vagina. ??? Follow instructions from your health care provider about eating and drinking before the procedure. This information is not intended to replace advice given to you by your health care provider. Make sure you discuss any questions you have with your health care provider. Document Released: 03/03/2014 Document Revised: 02/08/2018 Document Reviewed: 05/24/2017 [employer] Patient Education ? 2020 [employer]. documented in this encounter Plan of Treatment Not on file documented as of this encounter Visit Diagnoses Not on filedocumented in this encounter
--- OUTSIDE RECORDS SUMMARY | 2024-08-27 15:16 | XMS_ITS | Encounter Summary ---
Author Organization [employer] Address [address] [place] [id number] Care Team Providers Care Specialty Therapist Name Role Phone Unavailable Primary Care Provider Unavailabl e Encounter Details Date Type Department Care Team (Late st Contact Info) Description 01/20/2020 Transcribed Document [facility] [place] [facility] [place] [address] ProviderAntonia MD [address] [place], [place] [id number] Social History Tobacco Use Types Packs/Day Years Used Date Smoking Tobacco: Never Assessed Comments Unknown Sex and Gender Information Value Date Recorded Sex Assigned at Female 09/08/2021 4:09 PM CDT Legal Sex Female 7:13 PM CDT Gender Identity Female 09/08/2021 4:09 PM CDT Sexual Orientation Not on file documented as of this encounter Miscellaneous Notes * Cerner Conversion Note - Historical ProviderMD - 01/20/2020 7:18 AM REGULATOR MECHANIC Consult Phone Call Documentation Entered On: 01/21/2020 2:25 EST Performed On: 01/20/2020 7:18 EST by Lucille Carvajal [employer] [facility] Phone Call for Consults Consult Phone Call/Page Attempt : First call Lucille Carvajal [facility] - 01/21/2020 2:24 EST documented in this encounter Plan of Treatment Not on file documented as of this encounter Visit Diagnoses Not on filedocumented in this encounter
--- OUTSIDE RECORDS SUMMARY | 2024-08-27 15:16 | XMS_ITS | Encounter Summary ---
Author Organization [employer] [facility] Address [address] [place] [address] Care Team Providers Care Jammer Operator Name Role Phone Unavailable Primary Care Provider Unavailabl e Encounter Details Date Type Department Care Team (Late st Contact Info) Description 01/20/2020 Transcribed Document [facility] [place] [facility] [place] [address] ProviderAntonia MD [address] [place] [address] Social History Tobacco Use Types [...] Conversion Note - Antonia ProviderMD - 01/20/2020 3:49 AM AUCTION ASSISTANT Admission History, Adult Entered On: 01/20/2020 16:07 EST Performed On: 01/20/2020 15:50 EST by Amara Beard Rn Advance Directive Patient has Advance Directive *Q : No, patient requests assist formulating Advance Directive Amara Beard Rn - 01/20/2020 16:03 EST Anesthesia/Transfusion History Family History of Anesthesia Reaction : No prior transfusion(s) Transfusion History : Prior anesthesia without reaction Family History of Anesthesia Reaction : None Amara Beard Rn - 01/20/2020 16:03 EST Anticipated Discharge Needs Discharge To, Anticipated : Home Anticipated Discharge Needs at This Time : None Amara Beard Rn - 01/20/2020 16:03 EST Education Topics, Admission Orientation DCP GENERIC CODE Advance Directives : Verbalizes understanding Allergy Band Applied : Verbalizes understanding Assessment/Vital Signs : Verbalizes understanding Bed Control : Verbalizes understanding Call Light : Verbalizes understanding Confidentiality : Verbalizes understanding Diet/Room Service : Verbalizes understanding Fall Prevention : Verbalizes understanding Hand Hygiene : Verbalizes understanding Healthcare Provider Visit : Verbalizes understanding ID Band Applied : Verbalizes understanding Isolation Precautions : Verbalizes understanding Orientation to Room/Bathroom : Verbalizes understanding Patient Bill of Rights : Verbalizes understanding Patient Rights/Responsibilities : Verbalizes understanding Patient Safety : Verbalizes understanding Personal Privacy Code : Verbalizes understanding Rapid Response Initiated by Patient/Family : Verbalizes understanding Rounding : Verbalizes understanding Siderails use/risks : Verbalizes understanding Skin Precautions : Verbalizes understanding Smoking Policy : Verbalizes understanding Telemetry Monitoring : Verbalizes understanding Television/Phone : Verbalizes understanding Visiting Policy : Verbalizes understanding Amara Beard Rn - 01/20/2020 16:03 EST Functional Assessment Living Situation : Home Patient Lives With : Spouse MANCIA Hx Falls Immediate/Within 3 Months : No Current Home Treatments : None Amara Beard Rn - 01/20/2020 16:03 EST General Info Patient Arrival Date/Time : 01/20/2020 15:50 EST Legal Guardian : Unaccompanied Want Family/Rep/Phys Notified of Admit : No Emergency Contact #1 : Jayden Emergency Contact #1 Emergency Contact #1 Relationship : spouse Emergency Contact #2 : - Emergency Contact #2 Phone Number : - Emergency Contact #2 Relationship : - Primary Language : Tuvaluan Communication Barrier : None Pickle Pumper Needed : No Amara Beard Rn - 01/20/2020 16:03 EST Fall Risk Scales ABCs Fall Injury Risk Identification : Surgery ABC Fall Injury Risk : Moderate to high injury risk MANCIA Hx Falls Immediate/Within 3 Months : No Mancia Secondary Diagnosis : Yes MANCIA Use of Ambulatory Aid : Bed rest/Nurse assist MANCIA IV Therapy or IV Access : Yes Mancia Gait/Transferring : Normal, bedrest, immobile Mancia Mental Status : Oriented to own ability Mancia Fall Risk Score : 35 MANCIA Fall Scale Risk Level : 25-45 Medium Risk [place] Fall Interventions : Adequate lighting, Assistive devices within reach, Bed in low position, Call device within reach, Fall prevention handout/education per facility policy, Frequent orientation to call device, Frequent orientation to surroundings, Hourly comfort/safety rounds, Non-slip footwear, Personal items within reach, Reinforced to call for assistance before getting out of bed, Room free of clutter/spills, Upper side-rails up, Wheels locked, Wires/Cords secured Barriers to Learning : None evident Learning Style Preferences Family : Verbal explanation Learning Style Preferences Patient : Verbal explanation Amara Beard Rn - 01/20/2020 16:03 EST Health Histories Smoking Status : Never (less than 100 in lifetime; none in last 30 days) Smokeless Tobacco Status : Never Amara Beard Rn - 01/20/2020 16:03 EST Social History (As Of: 01/20/2020 16:07:18 EST) Tobacco: Never (less than 100 in lifetime) Smoking Status. Never Smokeless Tobacco Status. (Last Updated: 01/13/2020 12:08:19 EST by JUAN ANTONIO HUSTON RN) Alcohol: Alcohol Use History No. (Last Updated: 01/13/2020 12:08:19 EST by JUAN ANTONIO HUSTON, HELLEN) Substance Abuse: Drug Use Hx: No. (Last Updated: 01/13/2020 12:08:19 EST by JUAN ANTONIO HUSTON, HELLEN) Height and Weight, Clinical Dosing Height Source : Stated Height Entry Format : [place] Height, Feet : 5 ft(Converted to: 152 cm, 60 Inch) Height, Inches : 6 Inch(Converted to: 0 ft 6 Inch, 15.24 cm) Clinical Height : 167.64 cm Weight Source : Standing scale Weight Entry Format : [place] Clinical Dosing Weight : 86.36 kg Weight, Pounds : 190 lb Body Surface Area (BSA) : 1.96 m2 Body Mass Index : 30.7 kg/m2 (HI) [place] Body Weight : 59 kg Amara Beard Rn - 01/20/2020 16:03 EST Infectious Disease History Has the patient ever been tested for COVID-19? : Yes, Patient stated results Negative Date of COVID-19 test known? : Yes Date of COVID-19 Test : 01/16/2020 EST Does patient have symptoms of COVID-19? : No COVID19 Screening : No Experiencing Infectious Disease Symptoms : Headache Physical contact outside [place] in the last 30 days : No Infectious Disease History : Chicken pox/Shingles, Measles Tuberculosis Symptoms : None Amara Beard Rn - 01/20/2020 16:03 EST Tetanus Immunization Status Previous Tetanus Immunizations : No qualifying data available. Tetanus Immunization : Less than 5 years Amara Beard Rn - 01/20/2020 16:03 EST Influenza Vaccine Asmt, Adult Previous Vaccines from Immunization Schedule : No qualifying data available. Influenza Immunization, Current Season : Yes Amara Beard Rn - 01/20/2020 16:03 EST Pneumococcal Vaccine Previous Vaccines from Immunization Schedule : No qualifying data available. Pneumonia Immunization Received : Yes Amara Beard Rn - 01/20/2020 16:03 EST Order Details Isolation Precautions Order Detail : Standard Precautions Order Detail : N/A IV Order Detail : 1 Oxygen Order Detail : 0 Nurse Collect Order Detail : 0 Lift/Transfer : Independent Central Line Order Detail : No Room Service : Appropriate Arterial Line : No Patient Needs Meds Crushed/Liquid : No Amara Beard Rn - 01/20/2020 16:03 EST Nutrition History Weight Entry Format Nutrition History : [place] Feeding Ability : Independent Adaptive Feeding Equipment : None Adaptive Feeding Equipment : Regular Oral Medication Administration : By mouth Eating Poorly Due to Decreased Appetite : No Unplanned Weight Loss in Past 3-6 Months : No Malnutrition Screening Tool Total(mal) : 0 Malnutrition Screening Tool Risk Level : Patient not at risk Amara Beard Rn - 01/20/2020 16:03 EST [place] Suicide Severity Rating Scale (C-SSRS) CSSRS Past Month Wish to be : No CSSRS Past Month Suicidal Thoughts : No CSSRS Lifetime Suicide Behavior : No Suicide Severity Rating Score : 0 Suicide Severity Rating : No Additional Care Required at this time Amara Beard Rn - 01/20/2020 16:03 EST Psychosocial History Do You Have a History of the Following? : Patient denies history Currently in Unsafe Situation : No Amara Beard Rn - 01/20/2020 16:03 EST Sleep Apnea Risk Assmt Hx of [...] Sleep Apnea Risk Level Score : 3 Amara Beard Rn - 01/20/2020 16:03 EST Spiritual/Cultural Needs Any Spiritual/Cultural Needs or Requests : No Amara Beard Rn - 01/20/2020 16:03 EST Valuables and Belongings Valuables and Belongings : Clothing, Personal items, No comfort items, No jewelry, No personal devices, No assistive devices, No respiratory devices, No medications Clothing : Common streetwear Clothing Disposition : Bedside Personal Items : Cell phone Personal Items Disposition : Bedside Amara Beard Rn - 01/20/2020 16:03 EST documented in this encounter Plan of Treatment Not on file documented as of this encounter Visit Diagnoses Not on filedocumented in this encounter
--- OUTSIDE RECORDS SUMMARY | 2024-08-27 15:16 | XMS_ITS | Encounter Summary ---
Author Organization [employer]atives Address [address] [place] [address] Care Team Providers Care Mastic Floor Layer Name Role Phone Unavailable Primary Care Provider Unavailabl e Encounter Details Date Type Department Care Team (Late st Contact Info) Description 01/20/2020 Transcribed Document [facility] [place] [facility] [place] [address] ProviderAntonia MD [facility] [place] [address] Social History Tobacco Use Types Packs/Day Years Used Date Smoking Tobacco: Never Assessed Comments Unknown Sex and Gender Information Value Date Recorded Sex Assigned at Female 09/08/2021 4:09 PM CDT Legal Sex Female 7:13 PM CDT Gender Identity Female 09/08/2021 4:09 PM CDT Sexual Orientation Not on file documented as of this encounter Miscellaneous Notes * Cerner Conversion Note - Antonia Gordon MD - 01/20/2020 6:50 PM ASSEMBLER UTILITY BUILDINGS Patient: JORGE LANIER Age: 74 years Sex: Female : 1945 Associated Diagnoses: None Author: ЕКАТЕРИНА CASTRO MD Basic Information Source of history: Self. Referral source: VANE QUINTANA JR, MD-URO. History limitation: None. History of Present Illness Pleasant 74 y/o WF w/ stress urinary incontinence due to vaginal prolapse admitted for elective robotic assisted laparoscopic sacrocolpopexy and suburethral sling. Pt seen post op. Post op she is feeling nauseated, pain is controlled. Has yet to ambulate and has not eaten. Last BM this morning. No cp or sob. Otherwise feels fine. Review of Systems Constitutional: Fatigue. Eye: Negative. Ear/Nose/Mouth/Throat: Negative. Respiratory: No shortness of breath. Cardiovascular: No chest pain. Gastrointestinal: Nausea, No vomiting. Abdominal pain: Lower quadrant. Genitourinary: Negative. Hematology/Lymphatics: Negative. Endocrine: Negative. Immunologic: Negative. Musculoskeletal: No back pain. Integumentary: No rash, No pruritus. Neurologic: Alert and oriented X4, No confusion, No tingling, No headache. Psychiatric: No anxiety, No depression. Health Status Allergies: Allergic Reactions (Selected) Severity Not Documented Uncoded Allergy (See Comment)- No reactions were documented., Allergies (1) Active Reaction Uncoded Allergy (See Comment) None Documented , Allergies (1) Active Reaction Uncoded Allergy (See Comment) None Documented Current medications: (Selected) Inpatient Medications Ordered Colace: 100 mg, Oral, BID Dilaudid: 0.5 mg, IV Push, Q4H, PRN: Pain (Severe 7-10) Lovenox: 40 mg, SubCutaneous, Daily Normal Saline Flush: 10 mL, IV Push, BID Normal Saline Flush: 10 mL, IV Push, See Comment, PRN: IV Use Protonix: 40 mg, Oral, Daily Sodium Chloride 0.9% intravenous solution 1,000 mL: 125 mL/Hr, IntraVENous Zofran: 4 mg, IV Push, Q4H, PRN: Nausea acetaminophen-HYDROcodone 325 mg-7.5 mg oral tablet: 1 Tab, Oral, Q4H, PRN: Pain (Moderate 4-6) bisoprolol: 2.5 mg, Oral, Daily simvastatin: 40 mg, Oral, At Bedtime Prescriptions Prescribed Colace 100 mg oral capsule: 1 Cap, Oral, BID, 20 Cap, 0 Refill(s) Macrobid 100 mg oral capsule: 1 Cap, Oral, BID, for 14 Day(s), 28 Cap, 0 Refill(s) MiraLax oral powder for reconstitution: 17 Gram, Oral, Daily, 255 Gram, 0 Refill(s) [place] 7.5 mg-325 mg oral tablet: 1 Tab, Oral, Q4H, PRN: as needed for pain, 30 Tab, 0 Refill(s) Documented Medications Documented Multiple Vitamins oral tablet: 1 Tab, Oral, Daily, 0 Refill(s) bisoprolol: 2.5 mg, Oral, Daily, 0 Refill(s) estradiol: 2 mg, Oral, Daily, 0 Refill(s) meloxicam: 15 mg, Oral, Daily, 0 Refill(s) simvastatin: 40 mg, Oral, At Bedtime, 0 Refill(s), Medications (11) Active Scheduled: (6) #NaCl 0.9% *FLUSH* inj 10 mL 10 mL, IV Push, BID bisoprolol 5 mg tab 2.5 mg 0.5 Tab, Oral, Daily docusate sodium 100 mg cap 100 mg 1 Cap, Oral, BID enoxaparin 40 mg/0.4 mL inj 40 mg 0.4 mL, SubCutaneous, Daily pantoprazole EC 40 mg tab 40 mg 1 Tab, Oral, Daily simvaSTATin 20 mg tab 40 mg 2 Tab, Oral, At Bedtime Continuous: (1) NaCl 0.9% 1,000 mL 1,000 mL, IntraVENous, 125 mL/Hr PRN: (4) #NaCl 0.9% *FLUSH* inj 10 mL 10 mL, IV Push, See Comment acetaminophen/HYDROcodone 325/7.5 mg tab 1 Tab, Oral, Q4H HYDROmorphone 1 mg/1 mL inj 0.5 mg 0.5 mL, IV Push, Q4H ondansetron 4 mg/2 mL inj 4 mg 2 mL, IV Push, Q4H , Home Medications (9) Active bisoprolol 2.5 mg, Oral, Daily Colace 100 mg oral capsule 100 mg = 1 Cap, Oral, BID estradiol 2 mg, Oral, Daily Macrobid 100 mg oral capsule 100 mg = 1 Cap, Oral, BID meloxicam 15 mg, Oral, Daily MiraLax oral powder for reconstitution 17 Gram, Oral, Daily Multiple Vitamins oral tablet 1 Tab, Oral, Daily [place] 7.5 mg-325 mg oral tablet 1 Tab, PRN, Oral, Q4H simvastatin 40 mg, Oral, At Bedtime Problem list: Medical At risk for sleep apnea / IMO [id number] / Confirmed Hormone replacement therapy / SNOMED CT 1879726675 / Confirmed High cholesterol / SNOMED CT 59295003 / Confirmed HTN (hypertension) / SNOMED CT 1697815399 / Confirmed, Active Problems (4) At risk for sleep apnea High cholesterol Hormone replacement therapy HTN (hypertension) Histories Past Medical History: No active or resolved past medical history items have been selected or recorded., High cholestero,l Hormone replacement therapy, HTN (hypertension) Family History: No family history items have been selected or recorded., CAD, Procedure history: skin cancer removed 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 Tonsillectomy (376536256). Hysterectomy (429152172). Lumpectomy of breast (7946049685). heart cath. Appendectomy (010466603). spinal surgery with plate. Colonoscopy (919624729). Social History Social & Psychosocial Habits Alcohol 01/13/2020 Alcohol Use History, Social Habits No Substance Abuse 01/13/2020 Recreational Drug Use History No Tobacco 01/13/2020 Smoking Status Never (less than 100 in l Smokeless Tobacco Status Never . nonsmoker, no etoh, lives in [facility] w/ her . Physical Examination VS/Measurements Vitals Signs (last 24 hrs) Last Charted Minimum Maximum Temp 97.7 (JAN 19:37) 97.7 (JAN 19:) 98.0 (JAN 19:46) Mon HR 76 (JAN 19:37) 62 (JAN 19 14:25) 78 (JAN 19 14:13) Periph HR 74 (JAN 19 10:46) 74 (JAN 19 10:46) 74 (JAN 19:46) Resp Rate 14 (JAN 19:37) 14 (JAN 19:37) 16 (JAN 19 10:46) SBP 96 (JAN 19:37) 96 (JAN 19:37) 137 (JAN 19:25) DBP L 58 (JAN 19:37) L 58 (JAN 19:37) H 91 (JAN 19:) MAP 67 (JAN 19 18:37) 67 (JAN 19 18:37) 114 (JAN 19:15) SpO2 96 (JAN 19 18:37) 94 (JAN 19 11:45) 99 (JAN 19 15:57) General: Alert and oriented, No acute distress. Eye: Pupils are equal, round and reactive to light, Extraocular movements are intact, Normal conjunctiva. HENT: Normocephalic, Normal hearing, Oral mucosa is moist. Neck: Supple, Non-tender, No jugular venous distention, No lymphadenopathy. Respiratory: Respirations are non-labored, Breath sounds are equal, Symmetrical chest wall expansion, No chest wall tenderness, decreased at bases. Cardiovascular: Normal rate, Regular rhythm, No murmur, Good pulses equal in all extremities, No edema. Gastrointestinal: Soft, Non-distended, Normal bowel sounds, No organomegaly, diffusely tender at lowe quadrants, incisions c/d/i. Genitourinary: No costovertebral angle tenderness. Lymphatics: No lymphadenopathy neck, axilla, groin. Musculoskeletal: Normal range of motion, Normal strength, No tenderness, No swelling, No deformity. Integumentary: Warm, Dry, Intact, No pallor. Neurologic: Alert, Oriented, Normal motor function, No focal deficits, Cranial Nerves II-XII are grossly intact. Psychiatric: Cooperative, Appropriate mood & affect. Review / Management Results review: Labs (Last four charted values) WBC 5.1 (JAN 12) HB 14.2 (JAN 12) HCT 42.6 (JAN 12) Plt 244 (JAN 19) 202 (JAN 12) Na 141 (JAN 12) K 4.0 (JAN 12) Cl 108 (JAN 12) CO2 29 (JAN 12) BUN 10 (JAN 12) Cr 0.70 (JAN 12) Glu R 91 (JAN 12) Ca 9.3 (JAN 12) PT 11.5 (JAN 12) INR 1.1 (JAN 12) PTT H 33.9 (JAN 12) , No qualifying data available. Radiology results No Radiology Results Found Impression and Plan vaginal prolapse and incontinence s/p robotic assisted laparoscopic sacrocolpopexy and suburethral sling prn pain meds adv diet as tolerated ambulate check post op labs post op nausea prn zofran adv diet as tolerated hypertension cont bisoprolol hyperlipidemia cont statin prophylaxis dvt via lovenox gi via pepcid dispo: home when stable code status: full code discussed w/ pt and RN time spent 50min documented in this encounter Plan of Treatment Not on file documented as of this encounter Visit Diagnoses Not on filedocumented in this encounter
--- OUTSIDE RECORDS SUMMARY | 2024-08-27 15:16 | XMS_ITS | Encounter Summary ---
Author Organization [employer] Address [address] [place] [address] Care Team Providers Care Jelly Maker Name Role Phone Unavailable Primary Care Provider Unavailabl e Encounter Details Date Type Department Care Team (Late st Contact Info) Description 01/20/2020 Transcribed Document [facility] Family Medicine [facility] [place] [address] ProviderAntonia MD [address] [place] [address] Social History Tobacco Use Types [...] - Antonia ProviderMD - 01/20/2020 12:38 PM MUSIC ORCHESTRATOR E Main OR PACU Summary Primary Physician: VANE QUINTANA JR, MD-URO Finalized Date/Time: 01/20/20 15:59:45 Pt. Name: JORGE BEATTY /Sex: 1945 Female Med Rec #: [id number] Physician: VANE QUINTANA JR, MD-URO Financial #: [id number] Pt. Type: O Room/Bed: Admit/Disch: 01/20/20 03:50:00 - [facility] [place] PACU Case Times Entry 1 In PACU I 01/20/20 14:13:00 Ready for PACU 01/20/20 14:43:00 Discharge Discharge from PACU 01/20/20 15:45:00 I Last Modified By: CHAY Cohen 01/20/20 14:19:23 [facility] Main OR PACU Case Times Audit 01/20/20 15:45:35 Excellence Consultant: JACEK Modifier: JACEK <+> 1 Discharge from PACU I [facility] Main OR PACU Acuity Entry 1 Start Time 01/20/20 14:44:00 Stop Time 01/20/20 15:45:00 Acuity Level [facility] PACU Acuity I Last Modified By: CHAY Cohen 01/20/20 15:59:38 Finalized By: CHAY Cohen Document Signatures Signed By: CHAY Cohen 01/20/20 15:59 Electronically signed by [facility] Conversion Heeler Machine Cerner at 06/29/2022 12:14 PM CDT documented in this encounter Plan of Treatment Not on file documented as of this encounter Visit Diagnoses Not on filedocumented in this encounter
--- OUTSIDE RECORDS SUMMARY | 2024-08-27 15:16 | XMS_ITS | Encounter Summary ---
Author Organization [employer] Address [address] [place] [address] Care Team Providers Care Tower Supervisor Name Role Phone Unavailable Primary Care Provider Unavailabl e Encounter Details Date Type Department Care Team (Late st Contact Info) Description 01/21/2020 Transcribed Document [facility] [place] [facility] [place] [address] ProviderAntonia MD [address] [place], [place] [id number] Social History Tobacco Use Types Packs/Day Years [...] Conversion Note - Antonia Gordon MD - 01/21/2020 7:01 AM MORTGAGE SPECIALIST Patient: JORGE BEATTY Age: 74 years Sex: Female : 1945 Associated Diagnoses: None Author: VANE QUINTANA JR, MD-URO Doing well today Pain controlled Abdomen benign Styles catheter and vaginal pack have been removed Home later today documented in this encounter Plan of Treatment Not on file documented as of this encounter Visit Diagnoses Not on filedocumented in this encounter
--- OUTSIDE RECORDS SUMMARY | 2024-08-27 15:16 | XMS_ITS | Encounter Summary ---
Author Organization [facility] [employer] Address [address] [place] [address] Care Team Providers Care Bicycle Fitter Name Role Phone Unavailable Primary Care Provider Unavailabl e Encounter Details Date Type Department Care Team (Late st Contact Info) Description 01/20/2020 Transcribed Document [facility] [place] [address] ProviderAntonia MD [address] [place] [address] Social History Tobacco Use Types [...] Conversion Note - Antonia ProviderMD - 01/20/2020 10:46 AM MONOTYPE KEYBOARD OPERATOR Pre Procedure Adult Entered On: 01/20/2020 10:49 EST Performed On: 01/20/2020 10:46 EST by Hermelinda Deal RN Height and Weight, Clinical Dosing Height Source : Stated Height Entry Format : [place] Height, Feet : 5 ft(Converted to: 152 cm, 60 Inch) Height, Inches : 6 Inch(Converted to: 0 ft 6 Inch, 15.24 cm) Clinical Height : 167.64 cm Weight Source : Standing scale Weight Entry Format : [place] Clinical Dosing Weight : 86.36 kg Weight, Pounds : 190 lb Body Surface Area (BSA) : 1.96 m2 Body Mass Index : 30.7 kg/m2 (HI) [place] Body Weight : 59 kg Hermelinda Deal RN - 01/20/2020 10:46 EST Health Histories Smoking Status : Never (less than 100 in lifetime; none in last 30 days) Smokeless Tobacco Status : Never Hermelinda Deal RN - 01/20/2020 10:46 EST Social History (As Of: 01/20/2020 10:49:52 EST) Tobacco: Never (less than 100 in [...] Chicken pox/Shingles, Measles Tuberculosis Symptoms : None Hermelinda Deal RN - 01/20/2020 10:46 EST COVID19 PreProcedure Screening Is this an Emergent or Add on Procedure? : No Date PreProcedure COVID-19 test known? : Yes Date of PreProcedure COVID-19 : 01/16/2020 EST Has patient been isolated since the test : Yes Exposed to COVID19 symptoms since test? : No Hermelinda Deal RN - 01/20/2020 10:46 EST Anesthesia/Transfusion History Family History of Anesthesia Reaction : No prior transfusion(s) Transfusion History : Prior anesthesia without reaction Family History of Anesthesia Reaction : None Hermelinda Deal RN - 01/20/2020 10:46 EST Functional Assessment Living Situation : Home Patient Lives With : Spouse GAVINO Hx Falls Immediate/Within 3 Months : No Current Home Treatments : None Hermelinda Deal RN - 01/20/2020 10:46 EST [place] Suicide Severity Rating Scale (C-SSRS) CSSRS Past Month Wish to be : No CSSRS Past Month Suicidal Thoughts : No CSSRS Lifetime Suicide Behavior : No Suicide Severity Rating Score : 0 Suicide Severity Rating : No Additional Care Required at this time Hermelinda Deal RN - 01/20/2020 10:46 EST Psychosocial History Do You Have a History of the Following? : Patient denies history Currently in Unsafe Situation : Hermelinda Sibley RN - 01/20/2020 10:46 EST Advance Directive Patient has Advance Directive *Q : No, patient refuses Advance Directive information Hermelinda Deal RN - 01/20/2020 10:46 EST Spiritual/Cultural Needs Any Spiritual/Cultural Needs or Requests : Hermelinda Sibley RN - 01/20/2020 10:46 EST Teaching/Learning Assessment Barriers To Learning : None evident Individuals Taught : Patient Readiness to Learn : Cooperative Baseline Knowledge of Topic : Good Readiness to Learn : Explanation Learning Style Preferences Patient : Verbal explanation Learning Style Preferences Family : Verbal explanation Hermelinda Deal RN - 01/20/2020 10:46 EST Education Topics, Periop Preadmission Perioperative Education Grid IV's : Verbalizes understanding NPO Status/Directions : Verbalizes understanding Pain Management : Verbalizes understanding Postoperative Care Preparations : Verbalizes understanding Preprocedure Preparations : Verbalizes understanding Hermelinda Deal RN - 01/20/2020 10:46 EST General Info Want Family/Rep/Phys Notified of Admit : No Emergency Contact #1 : Jayden Emergency Contact #1 Emergency Contact #1 Relationship : spouse Emergency Contact #2 : - Emergency Contact #2 Phone Number : - Emergency Contact #2 Relationship : - Primary Language : Citizen Of [place] Communication Barrier : None Youth Associate Needed : Hermelinda Sibley RN - 01/20/2020 10:46 EST Vital Measurements Temperature Source : Temporal artery scanning Temperature, Fahrenheit : 98.0 Deg F Clinical Temperature, C : 36.7 Deg C Peripheral Pulse Rate : 74 bpm Pulse Rhythm : Regular Respiratory Rate : 16 Breaths/Min Systolic Blood Pressure : 128 mmHg Diastolic Blood Pressure : 71 mmHg Oxygen Saturation : 96 % Oxygen Therapy Mode : Room air Hermelinda Deal RN - 01/20/2020 10:46 EST Sleep Apnea Risk Assmt Hx of [...] Sleep Apnea Risk Level Score : 3 Hermelinda Deal RN - 01/20/2020 10:46 EST Lukas Scale Lukas Sensory Perception : No impairment Lukas Moisture : Rarely moist Lukas Activity : Walks frequently Lukas Mobility : No limitation Lukas Nutrition : Excellent Lukas Friction and Shear : No apparent problem Lukas Score : 23 Hermelinda Deal RN - 01/20/2020 10:46 EST Oxygen Therapy Oxygen Therapy Mode : Room air Hermelinda Deal RN - 01/20/2020 10:46 EST Pain Assessment Pain Assessment : Initial assessment Pain Scale Used : 0-10 Scale Hermelinda Deal RN - 01/20/2020 10:46 EST Fall Risk Scales ABCs Fall Injury Risk Identification : Age ABC Fall Injury Risk : Moderate to high injury risk MANCIA Hx Falls Immediate/Within 3 Months : No Mancia Secondary Diagnosis : No MANCIA Use of Ambulatory Aid : None MANCIA IV Therapy or IV Access : Yes Mancia Gait/Transferring : Normal, bedrest, immobile Mancia Mental Status : Oriented to own ability Mancia Fall Risk Score : 20 MANCIA Fall Scale Risk Level : 0-24 Low Risk [place] Fall Interventions : Assistive devices within reach, Bed in low position, Fall prevention handout/education per facility policy, Frequent orientation to surroundings, Hourly comfort/safety rounds Barriers to Learning : None evident Hermelinda Deal RN - 01/20/2020 10:46 EST Education Topics, Day of Surgery DayofSurgery Education Grid Incentive Spirometry : Verbalizes understanding Infection Control : Verbalizes understanding Infection Risks : Verbalizes understanding IV's : Verbalizes understanding Hermelinda Deal RN - 01/20/2020 10:46 EST Valuables and Belongings Valuables and Belongings : Clothing Clothing : Common streetwear Clothing Disposition : Sent to locker Hermelinda Deal RN - 01/20/2020 10:46 EST Pain Scale Intensity : 0 Hermelinda Deal RN - 01/20/2020 10:46 EST Image 4 - Images currently included in the form version of this document have not been included in the text rendition version of the form. [place] Coma [place] Best Motor Response : Obey commands [place] Best Verbal Response : Oriented [place] Eye Opening Response : Spontaneous [place] Coma Score : 15 Hermelinda Deal RN - 01/20/2020 10:46 EST Electronically signed by [facility] Conversion Wet Pour Supervisor Cerner at 06/29/2022 12:29 PM CDT documented in this encounter Plan of Treatment Not on file documented as of this encounter Visit Diagnoses Not on filedocumented in this encounter
--- OUTSIDE RECORDS SUMMARY | 2024-08-27 15:16 | XMS_ITS | Patient Health Record ---
Author Organization [facility] Address [address] [facility] [address] [place] [id number] Care Team Providers Care Dining Service Supervisor Name Role Phone Gera Remy Primary Care Provider [phone] Parviz Friend Unavailable [phone] Becky Amador Unavailable [phone] Allergies Allergen (clinical drug ingredient) Drug/Non Drug Allergy documented on EMR Reaction Allergy Type Onset Date Status Dye JAIL Blue 1 shivers/shaking Drug Allergy Active Results [...] - 38 plat 123 100 - 400 Influenza Screen (in house) Reviewed date:03/01/2024 10:56:31 [...] Interpretation:Negative Performing Lab: Notes/Report: Negative Result: neg Mammogram Reviewed date:06/17/2024 10:50:17 AM Interpretation:Negative, annual f/u Performing Lab: Notes/Report: Negative, annual f/u result Negative, annual f/u Medications Medication SIG (Take, Route, Frequency, Duration) Notes Start Date End Date Status Aspirin 81 MG 1 TAB P.O. Q DAY Active Diclofenac Sodium 75 MG 1 tab(s) orally 2 times a day for 30 day(s) Active Meloxicam 7.5 MG 1 tab(s) orally bid for 30 days Not-Taking Lisinopril-hydroCHLOROthi azide 10-12.5 MG 1 tab po qd Not-Taking Dvtwkbjps-Czrfdngi-JB 30-1-20 MG/5ML 5-10 ml Orally every 6 hrs prn 07/01/2024 Active Meloxicam 15 MG 1 tab(s) orally once a day Not-Taking Rosuvastatin Calcium 10 MG TAKE 1 TABLET BY MOUTH EVERY DAY for 90 Active Estradiol 1 MG 1 tab(s) orally once a day Not-Taking Simvastatin 40 MG 1 tab orally at bedtime Not-Taking Bisoprolol Fumarate 5 MG 1/2 tab(s) oral ly once a day Active Multivitamin - 1 tab(s) orally once a day for 30 day(s) Active Zithromax Z-Ron 250 MG as directed Orally 07/02/19 25 Active Furosemide 20 MG TAKE 1 TABLET BY GARRETT TH EVERY DAY NEEDED for 90 Active Cephalexin 500 MG 1 cap(s) orally ever y 12 hours for 10 day(s) 10/12/2020 Not-Takin g Immunizations Vaccine Route Administration Date Status Comme nts COVID 19 Moderna Unknown 04/30/2020 Administered COVID 19 Moderna Unknown 01/14/2021 Administered Fluzone High Dose (65yr and older) IM Intramuscular 11/17/2021 Administered Hepatitis A (adult) IM Intramuscular 04/01/2018 Administer ed Prevnar (PCV20) IM Intramuscular 01/23/2022 Administered tuberculin (ppd) ID Intradermal 12/13/2007 Administered xFluzone High Dose-private (65yr&older) IM Intramuscular 11/28/2012 Administered Problems Problem Type SNOMED Code ICD Code Onset Dates Problem Status W/U Status Risk Notes Problem 24205356 Essential hypertension (I10) Active confirmed Problem Abnormal findings on diagnostic imaging of breast (145437487) Other abnormal and inconclusive findings on diagnostic imaging of breast (R92.8) Active confirmed Problem 968636762 Generalized osteoarthritis (M15.9) Active confirmed Problem 464484250 Cervical disc disease (M50.90) Active confirmed Problem 586418665 Multinodular goiter (E04.2) Active confirmed Problem 712086278 Menopausal syndrome (N95.1) Active confirmed Problem 046304120 Dyslipidemia (E78.5) Active confirmed Problem Menopause (495092580) Post menopausal syndrome (N95.1) Active confirmed Vital Signs Heart Rate 90 /min 07/01/2024 Blood pressure diastolic 76 mm Hg 07/01/2024 Height 65.5 in 07/01/2024 Blood pressure systolic 120 mm Hg 07/01/2024 Weight 182.8 lbs 07/01/2024 BMI 29.95 kg/m2 07/01/2024 Encounters Encounter Location Date Provider Diagnosis [facility] [address] [place], [place] [id number] 10/22/2023 Becky Amador Gastroenteritis K52. 9 [facility] [address] [place], [place] [id number] 03/01/2024 Parviz Orland Cough, unspecified t ype R05.9 [facility] [address] [place], [place] [id number] 07/01/2024 Gera Remy Acute bronchitis J20 .9 ; Scalp contusion S00.03XA ; Generalized osteoarthritis M15.9 and BMI 29.0-29.9,adult Z68.29 [facility] [address] [place], [place] [id number] 07/02/2024 Gera Remy Assessments Encounter Date Diagnosis (ICD Code) Assessment Notes Treatment Notes Treatment Clinical Notes Section Notes 10/22/2023 Gastroenteritis (ICD-10 - K52.9) fluids, rest, supportive measures for fever/symptom relief, bland foods in small amounts with good fluid intake--small amounts frequently; no soda or caffeine 03/01/2024 Cough, unspecified type (ICD-10 - R05.9) fluids, rest, supportive measures for fever/symptom relief 07/01/2024 Acute bronchitis (ICD-10 - J20.9) 07/01/2024 Scalp contusion (ICD-10 - S00.03XA) Ice to hematoma 3 times daily 07/01/2024 Generalized osteoarthritis (ICD-10 - M15.9) 07/01/2024 BMI 29.0-29.9,adult (ICD-10 - Z68.29) Plan Of Treatment Next Appt Details Provider Name:Gera Errol Rosenthal robin, 10/14/2024 03:00:00 PM, [address], [address], [place], [place], [id number], Insurance Providers Payer Name Payer Address Payer Phone Subscriber Number Group Number Insured Name Patient Relationship to Insured Coverage Start Date Coverage End Date [employer] [address] [place] [address] [id number] JORGE LANIER Self - patient is the insured MEDICARE PART B [address] [address] [place] [address] [id number] JORGE LANIER Self - patient is the insured Medications Administered Medication Instructions Date of Administration Dosage Notes Dexamethasone 02/20/2009 1 mL Dexamethasone 04/27/2009 1 mL Dexamethasone 05/17/2009 1 mL Medical (General) History Medical History History ICD Code hyperlipidemia arthritis multinodular goiter thyroid cyst HBP Colon polyps Surgical History Surgery Date(Month/Year) tonsillectomy x 2 gallbladder appendectomy breast bx OLIVIA skin ca sx on face C/5-6, C/6-7 microdiskectomies and fusio n/ Dr. Guzman 10/19/2006 I&D skin abscess C-scope/polyps/ Amarilys stress test heart cath/ normal coronaries/ Dr Alesha fields 02/2017 colonoscopy-Dr Panda 09/2019 Dr. Murillo- bladder sling 01/20/2020 Total Knee Replacement of the Right Knee - Dr. Tommy Velarde 03/30/2022 Lymph Node Biopsy 02/2023 Hospitalization History Reason Date(Month/Year) see above
--- OUTSIDE RECORDS SUMMARY | 2024-08-27 15:16 | XMS_ITS | Encounter Summary ---
Author Organization [facility] [facility] [employer] Address [address] [place] [address] Care Team Providers Care Mobile Equipment Servicer Name Role Phone Unavailable Primary Care Provider Unavailabl e Encounter Details Date Type Department Care Team (Late st Contact Info) Description 01/20/2020 Transcribed Document [facility] Family Medicine [facility] [place] [address] ProviderAntonia MD [address] [place] [id number] Social History Tobacco Use Types Packs/Day Years [...] - Antonia ProviderMD - 01/20/2020 11:35 AM HAND TUBE WINDER Peripheral Nerve Block Entered On: 01/20/2020 12:06 EST Performed On: 01/20/2020 11:35 EST by MANAV CROSS RN Peripheral Nerve Block Peripheral Nerve Block Start Date/Time : 01/20/2020 11:35 EST Verbally Confirm Pt, Site, and Procedure : Yes Time Out Pause Time : 01/20/2020 11:35 EST Site Marked and Visible : Yes Site Preparation : Chlorhexidine (Hibiclens) Peripheral Nerve Block : Tap Block Laterality : Bilateral Peripheral Nerve Block Performed by : RD LEIGH MD-ANS Medication Delivery Method : Single Shot Peripheral Nerve Block Assisted by : MANAV CROSS RN Ultra sound used during insertion : Yes Nerve Block Activity, Patient Tolerance : Good Peripheral Nerve Block End Date/Time : 01/20/2020 11:45 EST MANAV CROSS RN - 01/20/2020 12:05 EST Electronically signed by Tracie, [facility] Conversion Production Control Planner Cerner at 06/29/2022 12:23 PM CDT documented in this encounter Plan of Treatment Not on file documented as of this encounter Visit Diagnoses Not on filedocumented in this encounter
--- OUTSIDE RECORDS SUMMARY | 2024-08-27 15:16 | XMS_ITS | Encounter Summary ---
Author Organization [employer] 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 Name Role Phone Unavailable Primary Care Provider Unavailabl e Encounter Details Date Type Department Care Team (Late st Contact Info) Description 01/21/2020 Transcribed Document [facility] Family Medicine [facility] [place] [address] ProviderAntonia MD [facility] [place] [address] Social History Tobacco Use Types [...] Note - Antonia Gordon MD - 01/21/2020 10:17 [place] [address] JORGE BEATTY :1945 Visit Time:01/20/2020 Your Visit Summary Your Care Team Admitting Physician - VANE QUINTANA JR, MD-URO Attending Physician - VANE QUINTANA JR, MD-URO Primary Care Physician - DAPHNE GLOVER (REF), Referring Physician - VANE QUINTANA JR, MD-URO Your Diagnosis Hypertension Nausea in adult S/P sacrocolpopexy, Status post creation of urethral sling by suprapubic approach Stress incontinence due to pelvic organ prolapse These Are Your Goals I want to discharge tomorrow and have less pain. Discharge Vitals Temperature 37.3 ??C Heart Rate (Monitored) 109 Respiratory Rate 16 Blood Pressure 109/59 What to do next Instructions From Your Care Team Discharge Follow Up Instructions: Lidia 3 weeks Activity: Discharge Activity: Activity as tolerated Diet: Discharge Diet: Resume usual diet as tolerated Follow-Up Appointments Follow Up with VANE QUINTANA JR, MD-URO When Comments Call for follow up appointment. 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 So you will have to call. Where: [address] [place] [address] [id number] [place] [address]- Follow Up with Follow up with specialist When Within 1 to 2 weeks Medications What How Much When Instructions Next Dose acetaminophen-hydrocodone (Jefferson 7.5 mg-325 mg oral tablet) 1 Tablet(s) Oral Every 4 Hours as needed for as needed for pain Printed Prescription as needed bisoprolol 2.5 Milligram(s) Oral Every Day tomorow docusate (Colace 100 mg oral capsule) 1 Capsule(s) Oral Two Times A Day Printed Prescription tonight estradiol 2 Milligram(s) Oral Every Day tomorrow meloxicam 15 Milligram(s) Oral Every Day tomorrow multivitamin (Multiple Vitamins oral tablet) 1 Tablet(s) Oral Every Day tomorrow nitrofurantoin (Macrobid 100 mg oral capsule) 1 Capsule(s) Oral Two Times A Day Duration: 14 Day(s) Printed Prescription tonight polyethylene glycol 3350 (MiraLax oral powder for reconstitution) 17 Gram(s) Oral Every Day Printed Prescription tomorrow simvastatin 40 Milligram(s) Oral At Bedtime tonight Take your medications faithfully. Do NOT skip medication. Do NOT stop taking medications without the direction of a physician. Carry a list of your medications with you at all times, and take this medication list with you to your first follow up visit. Report any side effects. Avoid herbal remedies unless discussed with your physician. As part of your treatment plan, your physician may have prescribed a limited course of a controlled substance. This medication may be given to help people with moderate or severe pain or for other medical conditions, but there are risks involved with treatment. Common side effects may include nausea, constipation, drowsiness, sweating, itching, dry mouth, and rash. More serious side effects may include cognitive and motor impairment, like problems with thinking, concentrating, alertness, and movement (e.g. slowed reflexes), and driving and operating heavy machinery can be dangerous. It is important for you to talk to your physician if you have these side effects or questions. These controlled substances can produce physical dependence and be habit-forming if taken for an extended period of time, which means that the body has gotten used to them and may experience withdrawal symptoms if they are abruptly stopped. Withdrawal symptoms can include runny nose, sweating, goose bumps, diarrhea, abdominal cramping, rapid heartbeat, difficulty sleeping, and nervousness. Please dispose of unused and medications per your retail pharmacy guidance. Allergies Uncoded Allergy (See Comment) Immunizations This Visit No Immunizations Found Education Materials Anterior and Posterior Colporrhaphy and Sling Procedure [...] including vitamins, herbs, eye drops, creams, and cnly-htq-vfszvoh medicines. ??? Any problems you or family [...] Up to 2 hours before the procedure ??? you may continue to drink clear liquids, such as water, clear fruit juice, black coffee, and plain tea. Eating and drinking restrictions ??? Follow instructions from your health care provider about eating and drinking, which may include: ? 8 hours before the procedure ??? stop eating heavy meals or foods such as meat, fried foods, or fatty foods. ? 6 hours before the procedure ??? stop eating light meals or foods, such as toast or cereal. ? 6 hours before the procedure ??? stop drinking milk or drinks that contain milk. ? 2 hours before the procedure ??? stop drinking clear liquids. General instructions ??? [...] 02/26/2017 Document Revised: 02/08/2018 Document Reviewed: 02/26/2017 [employer] Patient Education ?? 2020 [employer]. Sacrocolpopexy Sacrocolpopexy is a surgical procedure that [...] including vitamins, herbs, eye drops, creams, and layj-spt-nullouc medicines. ??? Any problems you or family [...] Up to 2 hours before the procedure ??? you may continue to drink clear liquids, such as water, clear fruit juice, black coffee, and plain tea. Eating and drinking restrictions Follow instructions from your health care provider about eating and drinking, which may include: ??? 8 hours before the procedure ??? stop eating heavy meals or foods such as meat, fried foods, or fatty foods. ??? 6 hours before the procedure ??? stop eating light meals or foods, such as toast or cereal. ??? 6 hours before the procedure ??? stop drinking milk or drinks that contain milk. ??? 2 hours before the procedure ??? stop drinking clear liquids. General instructions ??? Ask your health care provider about: ? Changing or stopping your regular medicines. This is especially important if you are taking diabetes medicines or blood thinners. ? Taking ygef-nlz-aalwfhc medicines, vitamins, herbs, and supplements. ? Taking [...] make you fall asleep (general anesthetic). ? A medicine that is injected into [...] 03/03/2014 Document Revised: 02/08/2018 Document Reviewed: 05/24/2017 [employer] Patient Education ?? 2020 [employer]. acetaminophen and hydrocodone (a SEET a MIN oh fen and paula droe KOE done) Hycet, Lorcet, Jefferson, Verdrocet, Vicodin, Xodol, Zamicet What is the most important information I should know about acetaminophen and hydrocodone? MISUSE OF OPIOID MEDICINE CAN CAUSE ADDICTION, OVERDOSE, OR . Keep the medication in a place where others cannot get to it. Taking opioid medicine during may cause life-threatening withdrawal symptoms in the . Fatal side effects can occur if you use opioid medicine with alcohol, or with other drugs that cause drowsiness or slow your breathing. Stop taking this medicine and call your doctor right away if you have skin redness or a rash that spreads and causes blistering and peeling. What is acetaminophen and hydrocodone? Acetaminophen and hydrocodone is a combination medicine used to relieve moderate to severe pain. Acetaminophen and hydrocodone may also be used for purposes not listed in this medication guide. What should I discuss with my healthcare provider before taking acetaminophen and hydrocodone? You should not use this medicine if you are allergic to acetaminophen or hydrocodone, or if you have: ?? severe asthma or breathing problems; or ?? a blockage in your stomach or intestines. Tell your doctor if you have ever had: ?? breathing problems, sleep apnea; ?? liver disease; ?? a drug or alcohol addiction; ?? kidney disease; ?? a head injury or seizures; ?? urination problems; or ?? problems with your thyroid, pancreas, or gallbladder. If you use opioid medicine while you are , your baby could become dependent on the drug. This can cause life-threatening withdrawal symptoms in the baby after it is born. Babies born dependent on opioids may need medical treatment for several weeks. Do not breastfeed. This medicine can pass into breast milk and cause drowsiness, breathing problems, or in a nursing baby. How should I take acetaminophen and hydrocodone? Follow all directions on your prescription label. Never take this medicine in larger amounts, or for longer than prescribed. An overdose can damage your liver or cause . Tell your doctor if you feel an increased urge to use more of this medicine. Never share this medicine with another person, especially someone with a history of drug abuse or addiction. MISUSE CAN CAUSE ADDICTION, OVERDOSE, OR . Keep the medicine in a place where others cannot get to it. Selling or giving away acetaminophen and hydrocodone is against the law. Measure liquid medicine carefully. Use the dosing syringe provided, or use a medicine dose-measuring device (not a kitchen spoon). If you need surgery or medical tests, tell the doctor ahead of time that you are using this medicine. You should not stop using this medicine suddenly. Follow your doctor's instructions about tapering your dose. Store at room temperature away from moisture and heat. Keep track of your medicine. You should be aware if anyone is using it improperly or without a prescription. Do not keep leftover opioid medication. Just one dose can cause in someone using this medicine accidentally or improperly. Ask your pharmacist where to locate a drug take-back disposal program. If there is no take-back program, flush the unused medicine down the toilet. What happens if I miss a dose? Since this medicine is used for pain, you are not likely to miss a dose. Skip any missed dose if it is almost time for your next dose. Do not use two doses at one time. What happens if I overdose? Seek emergency medical attention or call the Poison Help line at . An overdose of acetaminophen and hydrocodone can be fatal. The first signs of an acetaminophen overdose include loss of appetite, nausea, vomiting, stomach pain, sweating, and confusion or weakness. Later symptoms may include pain in your upper stomach, dark urine, and yellowing of your skin or the whites of your eyes. Overdose can also cause severe muscle weakness, pinpoint pupils, very slow breathing, extreme drowsiness, or coma. What should I avoid while taking acetaminophen and hydrocodone? Avoid driving or operating machinery until you know how this medicine will affect you. Dizziness or drowsiness can cause falls, accidents, or severe injuries. Do not drink alcohol. Dangerous side effects or could occur. Ask a doctor or pharmacist before using any other medicine that may contain acetaminophen (sometimes abbreviated as APAP). Taking certain medications together can lead to a fatal overdose. What are the possible side effects of acetaminophen and hydrocodone? Get emergency medical help if you have signs of an allergic reaction: hives; difficulty breathing; swelling of your face, lips, tongue, or throat. Opioid medicine can slow or stop your breathing, and may occur. A person caring for you should seek emergency medical attention if you have slow breathing with long pauses, blue colored lips, or if you are hard to wake up. In rare cases, acetaminophen may cause a severe skin reaction that can be fatal. This could occur even if you have taken acetaminophen in the past and had no reaction. Stop taking this medicine and call your doctor right away if you have skin redness or a rash that spreads and causes blistering and peeling. Call your doctor at once if you have: ?? noisy breathing, sighing, shallow breathing, breathing that stops during sleep; ?? a light-headed feeling, like you might pass out; ?? liver problems--nausea, upper stomach pain, tiredness, loss of appetite, dark urine, terrie-colored stools, jaundice (yellowing of the skin or eyes); or ?? low cortisol levels-- nausea, vomiting, loss of appetite, dizziness, worsening tiredness or weakness. Seek medical attention right away if you have symptoms of serotonin syndrome, such as: agitation, hallucinations, fever, sweating, shivering, fast heart rate, muscle stiffness, twitching, loss of coordination, nausea, vomiting, or diarrhea. Serious side effects may be more likely in older adults and those who are overweight, malnourished, or debilitated. Long-term use of opioid medication may affect fertility (ability to have children) in men or women. It is not known whether opioid effects on fertility are permanent. Common side effects include: ?? dizziness, drowsiness, feeling tired; ?? nausea, vomiting, stomach pain; ?? constipation; or ?? headache. This is not a complete list of side effects and others may occur. Call your doctor for medical advice about side effects. You may report side effects to FDA at 1-230-XJJ-2855. What other drugs will affect acetaminophen and hydrocodone? You may have breathing problems or withdrawal symptoms if you start or stop taking certain other medicines. Tell your doctor if you also use an antibiotic, antifungal medication, heart or blood pressure medication, seizure medication, or medicine to treat HIV or hepatitis C. Opioid medication can interact with many other drugs and cause dangerous side effects or . Be sure your doctor knows if you also use: ?? cold or allergy medicines, bronchodilator asthma/COPD medication, or a diuretic ('water pill'); ?? medicines for motion sickness, irritable bowel syndrome, or overactive bladder; ?? other narcotic medications--opioid pain medicine or prescription cough medicine; ?? a sedative like Valium--diazepam, alprazolam, lorazepam, Xanax, Klonopin, Versed, and others; ?? drugs that make you sleepy or slow your breathing--a sleeping pill, muscle relaxer, medicine to treat mood disorders or mental illness; ?? drugs that affect serotonin levels in your body--a stimulant, or medicine for depression, Parkinson's disease, migraine headaches, serious infections, or nausea and vomiting. This list is not complete. Other drugs may affect acetaminophen and hydrocodone, including prescription and lckk-txa-kxifpub medicines, vitamins, and herbal products. Not all possible interactions are listed here. Where can I get more information? Your doctor or pharmacist can provide more information about acetaminophen and hydrocodone. Remember, keep this and all other medicines out of the reach of children, never share your medicines with others, and use this medication only for the indication prescribed. Every effort has been made to ensure that the information provided by [employer]. ('[employer]') is accurate, up-to-date, and complete, but no guarantee is made to that effect. Drug information contained herein may be time sensitive. [employer] information has been compiled for use by healthcare practitioners and consumers in the [place] and therefore [employer] does not warrant that uses outside of the [place] are appropriate, unless specifically indicated otherwise. [employer] drug information does not endorse drugs, diagnose patients or recommend therapy. [employer] drug information is an informational resource designed to assist licensed healthcare practitioners in caring for their patients and/or to serve consumers viewing this service as a supplement to, and not a substitute for, the expertise, skill, knowledge and judgment of healthcare practitioners. The absence of a warning for a given drug or drug combination in no way should be construed to indicate that the drug or drug combination is safe, effective or appropriate for any given patient. [employer] does not assume any responsibility for any aspect of healthcare administered with the aid of information [employer] provides. The information contained herein is not intended to cover all possible uses, directions, precautions, warnings, drug interactions, allergic reactions, or adverse effects. If you have questions about the drugs you are taking, check with your doctor, nurse or pharmacist. Copyright 4692-2742 [employer] [facility]. Version: 16.01. Revision Date: 04/02/2019. nitrofurantoin (JOE vazquezchandni) Macrobid, Macrodantin What is the most important information I should know about nitrofurantoin? You should not take nitrofurantoin if you have severe kidney disease, urination problems, or a history of jaundice or liver problems caused by nitrofurantoin. Do not take nitrofurantoin during late (from 38 weeks through delivery). What is nitrofurantoin? Nitrofurantoin is an antibiotic that is used to treat urinary tract infections caused by bacteria. Nitrofurantoin may also be used for purposes not listed in this medication guide. What should I discuss with my healthcare provider before taking nitrofurantoin? You should not take nitrofurantoin if you are allergic to it, or if you have: ?? severe kidney disease; ?? urination problems (little or no urination); or ?? a history of jaundice or liver problems caused by taking nitrofurantoin. Do not take nitrofurantoin during late (from 38 weeks through delivery). Tell your doctor if you have ever had: ?? kidney disease; ?? anemia; ?? diabetes; ?? an electrolyte imbalance or vitamin B deficiency; ?? esexkdq-3-echliqhwv dehydrogenase (G6PD) deficiency; or ?? any type of debilitating disease. You should not breastfeed a baby younger than 1 month old while you are taking nitrofurantoin. Nitrofurantoin should not be given to a child younger than 1 month old. How should I take nitrofurantoin? Follow all directions on your prescription label and read all medication guides or instruction sheets. Use the medicine exactly as directed. Take nitrofurantoin with food, even if you take it at bedtime. Shake the oral suspension (liquid) before you measure a dose. Use the dosing syringe provided, or use a medicine dose-measuring device (not a kitchen spoon). You may need to keep taking nitrofurantoin for up to 7 days after lab tests show that the infection has cleared. Follow your doctor's instructions. Use this medicine for the full prescribed length of time, even if your symptoms quickly improve. Skipping doses can increase your risk of infection that is resistant to medication. Nitrofurantoin will not treat a viral infection such as the flu or a common cold. This medicine can affect the results of certain medical tests. Tell any doctor who treats you that you are using nitrofurantoin. If you use this medicine long-term, you may need frequent medical tests. Store at room temperature away from moisture, heat, and light. Do not freeze the liquid medicine, and keep the bottle tightly closed when not in use. Throw away any nitrofurantoin liquid that has not been used within 30 days. What happens if I miss a dose? Take the medicine as soon as you can, but skip the missed dose if it is almost time for your next dose. Do not take two doses at one time. What happens if I overdose? Seek emergency medical attention or call the Poison Help line at . Overdose can cause vomiting. What should I avoid while taking nitrofurantoin? Antibiotic medicines can cause diarrhea, which may be a sign of a new infection. If you have diarrhea that is watery or bloody, call your doctor before using anti-diarrhea medicine. Avoid taking an antacid that contains magnesium trisilicate, which could make it harder for your body to absorb nitrofurantoin. What are the possible side effects of nitrofurantoin? Get emergency medical help if you have signs of an allergic reaction (hives, difficult breathing, swelling in your face or throat) or a severe skin reaction (fever, sore throat, burning eyes, skin pain, red or purple skin rash with blistering and peeling). Call your doctor at once if you have: ?? severe stomach pain, diarrhea that is watery or bloody (even if it occurs months after your last dose); ?? vision problems; ?? fever, chills, cough, chest pain, trouble breathing; ?? numbness, tingling, or burning pain in your hands or feet; ?? severe pain behind your eyes; ?? pale skin, weakness; ?? joint pain or swelling with fever, swollen glands, and muscle aches; ?? pain, redness, or swelling in your lower jaw; ?? increased pressure inside the skull--severe headaches, ringing in your ears, dizziness, nausea, vision problems, pain behind your eyes; or ?? signs of liver or pancreas problems--upper stomach pain (that may spread to your back), nausea or vomiting, dark urine, yellowing of the skin or eyes. Side effects may be more likely in older adults. Common side effects may include: ?? headache, dizziness, drowsiness, weakness; ?? gas, indigestion, loss of appetite; ?? nausea, vomiting; ?? muscle or joint pain; ?? rash, itching; or ?? temporary hair loss. This is not a complete list of side effects and others may occur. Call your doctor for medical advice about side effects. You may report side effects to FDA at 3-926-NVH-0406. What other drugs will affect nitrofurantoin? Other drugs may affect nitrofurantoin, including prescription and idhk-sjg-vyixplx medicines, vitamins, and herbal products. Tell your doctor about all your current medicines and any medicine you start or stop using. Where can I get more information? Your pharmacist can provide more information about nitrofurantoin. Remember, keep this and all other medicines out of the reach of children, never share your medicines with others, and use this medication only for the indication prescribed. Every effort has been made to ensure that the information provided by [employer]. ('[employer]') is accurate, up-to-date, and complete, but no guarantee is made to that effect. Drug information contained herein may be time sensitive. [employer] information has been compiled for use by healthcare practitioners and consumers in the [place] and therefore [employer] does not warrant that uses outside of the [place] are appropriate, unless specifically indicated otherwise. [employer] drug information does not endorse drugs, diagnose patients or recommend therapy. [employer] drug information is an informational resource designed to assist licensed healthcare practitioners in caring for their patients and/or to serve consumers viewing this service as a supplement to, and not a substitute for, the expertise, skill, knowledge and judgment of healthcare practitioners. The absence of a warning for a given drug or drug combination in no way should be construed to indicate that the drug or drug combination is safe, effective or appropriate for any given patient. [employer] does not assume any responsibility for any aspect of healthcare administered with the aid of information [employer] provides. The information contained herein is not intended to cover all possible uses, directions, precautions, warnings, drug interactions, allergic reactions, or adverse effects. If you have questions about the drugs you are taking, check with your doctor, nurse or pharmacist. Copyright 1770-1402 [employer]. Version: 9.02. Revision Date: 05/05/2019. polyethylene glycol 3350 (reena ee ETH il een GLYE kol) ClearLax, GaviLAX, Gialax, GlycoLax, MiraLax, [id number], [employer] ClearLax What is the most important information I should know about polyethylene glycol 3350? You should not use this medicine if you have a bowel obstruction or intestinal blockage. If you have any of these conditions, you could have dangerous or life-threatening side effects from polyethylene glycol 3350. Do not use polyethylene glycol 3350 more than once per day. Call your doctor if you are still constipated or irregular after using this medication for 7 days in a row. What is polyethylene glycol 3350? Polyethylene glycol 3350 is a laxative solution that increases the amount of water in the intestinal tract to stimulate bowel movements. Polyethylene glycol 3350 is used as a laxative to treat occasional constipation or irregular bowel movements. Polyethylene glycol 3350 may also be used for purposes not listed in this medication guide. What should I discuss with my healthcare provider before taking polyethylene glycol 3350? You should not use this medicine if you are allergic to polyethylene glycol, or if you have a bowel obstruction or intestinal blockage. If you have any of these conditions, you could have dangerous or life-threatening side effects from polyethylene glycol 3350. People with eating disorders (such as anorexia or bulimia) should not use this medication without the advice of a doctor. To make sure this medicine is safe for you, tell your doctor if you have: ?? nausea, vomiting, or severe stomach pain; ?? ulcerative colitis; ?? irritable bowel syndrome; ?? kidney disease; or ?? if you have had a sudden change in bowel habits that has lasted 2 weeks or longer. FDA category C. It is not known whether polyethylene glycol 3350 will harm an unborn baby. Tell your doctor if you are or plan to become while using this medication. It is not known whether polyethylene glycol 3350 passes into breast milk or if it could harm a nursing baby. Tell your doctor if you are breast-feeding a baby. How should I take polyethylene glycol 3350? Follow all directions on your prescription label. Do not use this medicine in larger or smaller amounts or for longer than recommended. To use the powder form of this medicine, measure your dose with the medicine cap on the bottle. This cap should contain dose macias on the inside of it. Pour the powder into 4 to 8 ounces of a cold or hot beverage such as water, juice, soda, coffee, or tea. Stir this mixture and drink it right away. Do not save for later use. Polyethylene glycol 3350 should produce a bowel movement within 1 to 3 days of using the medication. Polyethylene glycol 3350 normally causes loose or even watery stools. Do not use polyethylene glycol 3350 more than once per day. Call your doctor if you are still constipated or irregular after using this medication for 7 days in a row. Store at room temperature away from moisture and heat. What happens if I miss a dose? Take the missed dose as soon as you remember. Skip the missed dose if it is almost time for your next scheduled dose. Do not take extra medicine to make up the missed dose. What happens if I overdose? Seek emergency medical attention or call the Poison Help line at . What should I avoid while taking polyethylene glycol 3350? Follow your doctor's instructions about any restrictions on food, beverages, or activity. What are the possible side effects of polyethylene glycol 3350? Get emergency medical help if you have signs of an allergic reaction: hives; difficult breathing; swelling of your face, lips, tongue, or throat. Stop taking this medicine and call your doctor at once if you have: ?? severe or bloody diarrhea; ?? rectal bleeding; ?? blood in your stools; or ?? severe and worsening stomach pain. Common side effects may include: ?? bloating, gas, upset stomach; ?? dizziness; or ?? increased sweating. This is not a complete list of side effects and others may occur. Call your doctor for medical advice about side effects. You may report side effects to FDA at 2-443-ZTX-1450. What other drugs will affect polyethylene glycol 3350? Other drugs may interact with polyethylene glycol 3350, including prescription and xgks-exk-fiijmzs medicines, vitamins, and herbal products. Tell each of your health care providers about all medicines you use now and any medicine you start or stop using. Where can I get more information? Your pharmacist can provide more information about polyethylene glycol 3350. Remember, keep this and all other medicines out of the reach of children, never share your medicines with others, and use this medication only for the indication prescribed. Every effort has been made to ensure that the information provided by [employer]. ('[employer]') is accurate, up-to-date, and complete, but no guarantee is made to that effect. Drug information contained herein may be time sensitive. [employer] information has been compiled for use by healthcare practitioners and consumers in the [place] and therefore [employer] does not warrant that uses outside of the [place] are appropriate, unless specifically indicated otherwise. [employer] drug information does not endorse drugs, diagnose patients or recommend therapy. [employer] drug information is an informational resource designed to assist licensed healthcare practitioners in caring for their patients and/or to serve consumers viewing this service as a supplement to, and not a substitute for, the expertise, skill, knowledge and judgment of healthcare practitioners. The absence of a warning for a given drug or drug combination in no way should be construed to indicate that the drug or drug combination is safe, effective or appropriate for any given patient. [employer] does not assume any responsibility for any aspect of healthcare administered with the aid of information [employer] provides. The information contained herein is not intended to cover all possible uses, directions, precautions, warnings, drug interactions, allergic reactions, or adverse effects. If you have questions about the drugs you are taking, check with your doctor, nurse or pharmacist. Copyright 4884-4520 [employer]. Version: 2.04. Revision Date: 06/14/2016. docusate (oral/rectal) (DOK ue sate) Colace, Diocto, Doc-Q-Lace, Docu, Doculase, Docusil, Docusoft S, DocuSol, Dulcolax Stool Softener, Enemeez Mini, Ilya-Tin, Pedia-Lax Stool Softener, Echols Stool Softener, Promolaxin, Silace, Surfak Stool Softener, Anai-Q-Lax What is the most important information I should know about docusate? You should not use docusate if you also use mineral oil, unless your doctor tells you to. What is docusate? Docusate is a stool softener that makes bowel movements softer and easier to pass. Docusate is used to relieve occasional constipation (irregularity). There are many brands and forms of docusate available. Not all brands are listed on this leaflet. Docusate may also be used for purposes not listed in this medication guide. What should I discuss with my healthcare provider before using docusate? You should not use docusate if you are allergic to it. Ask a doctor or pharmacist if this medicine is safe to use if you have: ?? stomach pain; ?? nausea; ?? vomiting; or ?? a sudden change in bowel habits that lasts over 2 weeks. Ask a doctor before using this medicine if you are or . Do not give this medicine to a child without medical advice. How should I use docusate? Use exactly as directed on the label, or as prescribed by your doctor. Drink plenty of liquids while you are using docusate. Measure liquid medicine carefully. Use the dosing syringe provided, or use a medicine dose-measuring device (not a kitchen spoon). Do not take the rectal enema by mouth. Rectal medicine is for use only in the rectum. Wash your hands before and after using the enema. To use the enema, lie on your left side with your left leg extended and your right leg slightly bent. Remove the cap from the applicator tip and gently insert the tip into your rectum. Slowly squeeze the bottle to empty the contents into the rectum. After using the enema, lie down on your left side for at least 30 minutes to allow the liquid to distribute throughout your intestines. Avoid using the bathroom, and hold in the enema at least 1 hour, or all night if possible. Read and carefully follow any Instructions for Use provided with your medicine. Ask your doctor or pharmacist if you do not understand these instructions. Docusate generally produces bowel movement in 12 to 72 hours. Call your doctor if your symptoms do not improve after 72 hours. You should not use docusate for longer than 1 week, unless your doctor tells you to. Store at room temperature away from moisture and heat. Do not freeze liquid medicine. What happens if I miss a dose? Since docusate is used when needed, you may not be on a dosing schedule. Skip any missed dose if it's almost time for your next dose. Do not use two doses at one time. What happens if I overdose? Seek emergency medical attention or call the Poison Help line at . What should I avoid while using docusate? Avoid using mineral oil, unless told to do so by a doctor. What are the possible side effects of docusate? Get emergency medical help if you have signs of an allergic reaction: hives; difficult breathing; swelling of your face, lips, tongue, or throat. Stop using docusate and call your doctor at once if you have: ?? rectal bleeding or irritation; or ?? no bowel movement after 72 hours. Less serious side effects may be more likely, and you may have none at all. This is not a complete list of side effects and others may occur. Call your doctor for medical advice about side effects. You may report side effects to FDA at 7-096-HUI-5898. What other drugs will affect docusate? Other drugs may affect docusate, including prescription and mvgj-jbn-fdsoeid medicines, vitamins, and herbal products. Tell your doctor about all your current medicines and any medicine you start or stop using. Where can I get more information? Your pharmacist can provide more information about docusate. Remember, keep this and all other medicines out of the reach of children, never share your medicines with others, and use this medication only for the indication prescribed. Every effort has been made to ensure that the information provided by [employer]. ('[employer]') is accurate, up-to-date, and complete, but no guarantee is made to that effect. Drug information contained herein may be time sensitive. [employer] information has been compiled for use by healthcare practitioners and consumers in the [place] and therefore [employer] does not warrant that uses outside of the [place] are appropriate, unless specifically indicated otherwise. [employer] drug information does not endorse drugs, diagnose patients or recommend therapy. [employer] drug information is an informational resource designed to assist licensed healthcare practitioners in caring for their patients and/or to serve consumers viewing this service as a supplement to, and not a substitute for, the expertise, skill, knowledge and judgment of healthcare practitioners. The absence of a warning for a given drug or drug combination in no way should be construed to indicate that the drug or drug combination is safe, effective or appropriate for any given patient. [employer] does not assume any responsibility for any aspect of healthcare administered with the aid of information [employer] provides. The information contained herein is not intended to cover all possible uses, directions, precautions, warnings, drug interactions, allergic reactions, or adverse effects. If you have questions about the drugs you are taking, check with your doctor, nurse or pharmacist. Copyright 2858-2052 [employer]. Version: 4.01. Revision Date: 09/16/2018. Emergency Awareness and Preventative Care STROKE is an EMERGENCY Every Minute Counts Act FAST and Check for these signs: FACE Does the face look uneven? ARM Does one arm drift down? SPEECH Does their speech sound strange? TIME Call at any sign of stroke Stroke Risk Factors Atrial Fibrillation (irregular heartbeat) Diabetes Family history of stroke Heart Disease Heavy alcohol use High Blood Pressure High Cholesterol Physical inactivity and obesity Smoking Cigarette Smoking The facts are clear, cigarette smoking will shorten your life. Smoking can cause many illnesses along the way. As a healthcare provider, we recommend that you stop smoking. Assistance with quitting is available by contacting 1-811-YBNO-NOW. This is a free resource providing counseling, support, and referral. Or you may contact your personal physician. National Suicide Prevention Lifeline: The National Suicide Prevention Lifeline is a national network of local crisis centers that provides free and confidential emotional support to people in suicidal crisis or emotional distress 24 hours a day, 7 days a week. Don't Wait! Stop a Heart Attack Before it Starts What is a heart attack? A heart attack is damage or to a part of the heart from severely decreased or lack of blood flow to the heart. Over time, arteries can become narrow from the buildup of fat and cholesterol, which is called plaque. The plaque can rupture causing a blood clot to form. When the blood clot forms, the artery can become severely narrowed or completely blocked, causing a heart attack. Heart attack is the leading cause of in the [place]. 85% of muscle damage occurs within the first 2 hours. Delay in the recognition of heart attack symptoms increases the chances of . Know the early symptoms of a heart attack: Nausea Feeling of fullness in chest Jaw Pain Pain that travels down one or both arms Fatigue/being tired Anxiety Back Pain Chest pressure, squeezing, or discomfort Shortness of breath Sweating, or a cold sweat Feeling of impending doom There are unusual signs of a heart attack, too! Women, the elderly, and diabetics may present with atypical symptoms: Fainting/dizziness Weakness Confusion Risk Factors for a Heart Attack Some heart disease risk factors, such as age and family history, cannot be changed. Others, like smoking and lack of exercise, can be changed. Smoking High Cholesterol High Blood Pressure Family History Obesity Age Gender (Males are at higher risk) Lack of Exercise Diabetes Diet Stress Excessive Alcohol Intake If you or someone you know is experiencing the signs and symptoms of a heart attack, DON???T DELAY. Call immediately and seek help. If someone collapses, perform CPR! Do not attempt to drive if you are having symptoms of heart attack. Hands-Only CPR Why Hands-Only CPR? Hands-Only CPR has been shown to be as effective as conventional CPR for cardiac arrests that occur outside of a hospital. Survival depends on immediately receiving CPR from someone nearby. How do you perform Hands-Only CPR? There are two easy steps: Call if you see a teen or adult collapse Push hard and fast in the center of the chest at a beat of 100 beats per minute. Save a life! 4 WAYS TO GET AHEAD OF SEPSIS SEPSIS is a MEDICAL EMERGENCY. Time matters! Infections put you and your family at risk for a life-threatening condition called sepsis. Sepsis is the body's extreme response to an infection. It is life-threatening, and without timely treatment, sepsis can rapidly lead to tissue damage, organ failure, and . Sepsis happens when an infection you already have-in your skin, lungs, urinary tract or somewhere else-triggers a chain reaction throughout your body. 1 PREVENT INFECTIONS Take good care of chronic conditions. Talk to your doctor about getting the recommended vaccines. 2 PRACTICE GOOD HYGIENE Wash your hands frequently. Keep cuts or open sores clean and covered until they are healed. 3 KNOW THE SYMPTOMS Confusion or disorientation Shortness of breath High heart rate Fever, shivering, or feeling very cold Extreme pain or discomfort Clammy or sweaty skin 4 ACT FAST Get medical care IMMEDIATELY if you suspect sepsis or if you have an infection that is not getting better or is getting worse. To learn more about sepsis and how to prevent infections, visit www.cdc.gov/sepsis. Test Results Laboratory or Other Results This Visit (last charted value for your 01/20/2020 visit) Hematology 01/21/2020 4:00 AM WBC: 11.4 K/uL -- Normal range between ( 3.9 and 10.0 ) RBC: 3.44 Million/uL -- Normal range between ( 3.93 and 5.22 ) Hct: 30.8 % -- Normal range between ( 34.1 and 44.9 ) Hgb: 10.2 Gram/dL -- Normal range between ( 11.2 and 15.7 ) Platelet Count: 206 K/uL -- Normal range between ( 163 and 369 ) MCH: 29.7 pg -- Normal range between ( 25.6 and 32.2 ) MCHC: 33.1 Gram/dL -- Normal range between ( 32.3 and 36.5 ) MCV: 89.5 fL -- Normal range between ( 79.0 and 94.8 ) Slide Review: No Eos %: 0.0 % -- Normal range between ( 1.0 and 7.0 ) [place] #: 0.69 K/uL -- Normal range between ( 0.24 and 0.82 ) Eos #: 0.00 K/uL -- Normal range between ( 0.04 and 0.54 ) [place] %: 6.0 % -- Normal range between ( 4.7 and 12.5 ) Baso %: 0.1 % -- Normal range between ( 0.0 and 1.0 ) Baso #: 0.01 K/uL -- Normal range between ( 0.01 and 0.08 ) RDW: 12.2 % -- Normal range between ( 11.6 and 14.4 ) Neut %: 82.6 % -- Normal range between ( 34.0 and 71.0 ) Neut #: 9.44 K/uL -- Normal range between ( 1.56 and 6.13 ) Lymph %: 10.9 % -- Normal range between ( 19.3 and 53.0 ) Lymph #: 1.25 K/uL -- Normal range between ( 1.18 and 3.74 ) MPV: 10.9 fL -- Normal range between ( 9.4 and 12.4 ) IG#: 0 x10(3)/uL IG%: 0 % -- Normal range between ( 0 and 1 ) General Chemistry 01/21/2020 4:00 AM Creatinine Level: 0.74 mg/dL -- Normal range between ( 0.55 and 1.02 ) Sodium Level: 138 mmol/L -- Normal range between ( 136 and 146 ) Potassium Level: 4.8 mmol/L -- Normal range between ( 3.5 and 5.1 ) Chloride Level: 104 mmol/L -- Normal range between ( 102 and 112 ) Carbon Dioxide Level: 29 mmol/L -- Normal range between ( 21 and 32 ) Anion Gap: 10 -- Normal range between ( 9 and 20 ) Bilirubin Total: 0.6 mg/dL -- Normal range between ( 0.2 and 1.3 ) A/G Ratio: 1.2 -- Normal range between ( 1.1 and 2.5 ) ALT: 22 Units/Liter -- Normal range between ( 12 and 78 ) AST: 22 Units/Liter -- Normal range between ( 5 and 37 ) Globulin: 2.5 Gram/dL -- Normal range between ( 1.5 and 4.5 ) Alk Phos: 71 Units/Liter -- Normal range between ( 27 and 136 ) Bilirubin Direct: 0.2 mg/dL -- Normal range between ( 0.0 and 0.2 ) Bun/Creatinine: 20.3 -- Normal range between ( 8.0 and 20.0 ) Calcium Level: 8.3 mg/dL -- Normal range between ( 8.5 and 10.1 ) eGFR : >60 mL/min/1.73m2 eGFR NonAfrican: >60 mL/min/1.73m2 Glucose Level: 115 mg/dL -- Normal range between ( 74 and 106 ) Blood Urea Nitrogen: 15 mg/dL -- Normal range between ( 7 and 22 ) Protein Total: 5.4 Gram/dL -- Normal range between ( 6.4 and 8.2 ) Albumin Level: 2.9 Gram/dL -- Normal range between ( 3.4 and 5.0 ) Coagulation 01/13/2020 12:03 PM INR: 1.1 -- Normal range between ( 0.9 and 1.1 ) PTT: 33.9 Second(s) -- Normal range between ( 24.2 and 31.8 ) PT: 11.5 Second(s) -- Normal range between ( 9.6 and 11.5 ) Diagnostic Radiology 01/13/2020 12:46 PM CR Chest 2 Vws: CR Chest 2 Vws Patient Name:JORGE BEATTY I have received and understand this information and was given the opportunity to ask questions. Patient/Contact Center Assistant Name: Patient/Contact Center Assistant Signature: Relationship to Patient: Clinician/Hospital Contact Center Assistant Signature: Date: documented in this encounter Plan of Treatment Not on file documented as of this encounter Visit Diagnoses Not on filedocumented in this encounter
--- OUTSIDE RECORDS SUMMARY | 2024-08-27 15:16 | XMS_ITS | Encounter Summary ---
Author Organization [facility] [employer] Address [address] [place] [id number] Care Team Providers Care [employer] Gauger Name Role Phone Unavailable Primary Care Provider Unavailabl e Encounter Details Date Type Department Care Team (Late st Contact Info) Description 01/20/2020 Transcribed Document [facility] [place] Family Medicine [facility] [place] [address] ProviderAntonia MD [facility] [place] [address] Social History Tobacco Use Types [...] Conversion Note - Antonia ProviderMD - 01/20/2020 2:01 PM [employer]PORT [employer]AMP AGENT Patient: JORGE LANIER Age: 74 Years Sex: Female : 1945 *Operation Robotic assisted laparoscopic sacrocolpopexy with mesh Robotic assisted laparoscopic right ureterolysis Suburethral sling, transobturator approach Cystoscopy Indication for Surgery Patient is in today with symptomatic vaginal prolapse and stress urinary incontinence. She wishes to proceed with surgical therapy and wishes to undergo robotic assisted laparoscopic sacrocolpopexy and suburethral sling. She understands the potential use of pelvic mesh and gives her full consent understanding the risks and benefits therein. *Preoperative Diagnosis Vaginal prolapse Stress urinary incontinence *Postoperative Diagnosis Vaginal prolapse Stress urinary incontinence *Surgeon(s) Lidia *Procedure Narrative After consent is obtained the patient was brought to the operating suite where she is placed in supine position. She is sterilely prepped and draped in normal fashion. She is placed in dorsal lithotomy position padding all pressure points. Veress needle technique is used to create pneumoperitoneum. 8 mm blunt Visiport is used to create a camera trocar site and the remainder of the robotic and mental health assistant trochars were placed. She was noted to have significant adhesions around the umbilicus these were omental adhesions and taken down sharply. The patient was then placed in Trendelenburg position and the robot was docked. She had a significant amount of adhesions to the small bowel in the pelvis. We lysed adhesions for at least 45 minutes to free up the bowel and get it out of the pelvis. At this point we were able to identify the sacral promontory we open the posterior peritoneum overlying the sacral promontory. Because of the lysis of adhesions it was difficult to identify the right ureter and thus we performed a formal right ureterolysis to make sure that we were not near the ureter during our dissection. Indeed it was well lateral to our area of dissection at the sacral promontory. The vagina was delivered into the abdomen using a vaginal retractor and we dissected the bladder away from the vagina. We then pexed our Y mesh anterior and posterior limbs to the apex of the vagina using interrupted [place]-Saleem suture. Finally we pexed our single arm of the mesh to the anterior spinal ligament overlying the sacral promontory using interrupted [place]-Saleem suture. Excess mesh was excised. We extraperitoneal as the mesh by bringing our posterior peritoneum together using a V-Loc suture. After extraperitonealizing the mesh we removed our trochars under laparoscopic guidance and closed our incision using subcutaneous 3-0 Vicryl in Dermabond for the skin. At this point we identified the urethra and performed hydrodissection in the urethrovaginal space. Longitudinal incision was made along the urethra in a longitudinal fashion we dissected laterally to the pubic rami. Using her helical passers we passed our suburethral sling into place through 2 separate stab incisions in the labia majora. Cystoscopy was performed showing no injury to the urethra bladder neck or trigone. There was no sign of any suture material or mesh within the urinary bladder. Styles catheter was replaced. Copious amounts of irrigation were was performed. We tightened her mesh appropriately. Excess mesh was excised. Colpotomy was closed using a running 3-0 Vicryl. The 2 stab incisions only majora were closed using Dermabond. Styles catheter was left in place. We noted the vaginal prolapse was completely reduced. Vaginal pack impregnated with estrogen cream was placed. At this point anesthesia was reversed and the patient was taken the recovery room in stable condition. *Estimated Blood Loss Less than 500 *Findings Vaginal prolapse *Specimen(s) None Complications None Date of Service Date/Time of Service SN - Proc - Start Time: 01/20/20 12:38:00 (01/20/20 12:55:59) SN - Proc - Start Time: 01/20/20 12:38:00 (01/20/20 12:55:59) documented in this encounter Plan of Treatment Not on file documented as of this encounter Visit Diagnoses Not on filedocumented in this encounter
--- OUTSIDE RECORDS SUMMARY | 2024-08-27 15:16 | XMS_ITS | Encounter Summary ---
Author Organization [employer] Address [address] [place] [address] Care Team Providers Care Deployment Engineer Name Role Phone Unavailable Primary Care Provider Unavailabl e Encounter Details Date Type Department Care Team (Late st Contact Info) Description 01/20/2020 Transcribed Document [facility] [place] [facility] [place] [address] ProviderAntonia MD [address] [place], [place] [id number] Social History Tobacco Use Types Packs/Day Years [...] - Antonia ProviderMD - 01/20/2020 4:56 PM FISHER Stroke/Warfarin Instructions Entered On: 01/20/2020 16:56 EST Performed On: 01/20/2020 16:56 EST by Charissa Higginbotham RN Stroke/Warfarin Instructions Stroke/TIA Discharge Ins : N/A Warfarin Discharge Ins : N/A Charissa Higginbotham RN - 01/20/2020 16:56 EST documented in this encounter Plan of Treatment Not on file documented as of this encounter Visit Diagnoses Not on filedocumented in this encounter
--- OUTSIDE RECORDS SUMMARY | 2024-08-27 15:16 | XMS_ITS | Encounter Summary ---
Author Organization [employer] Address [address] [place] [address] Care Team Providers Care Gang Miner Name Role Phone Unavailable Primary Care Provider Unavailabl e Encounter Details Date Type Department Care Team (Late st Contact Info) Description 01/21/2020 Transcribed Document [facility] [place] [facility] [place] [address] ProviderAntonia MD [address] [place] [address] Social History Tobacco Use Types [...] Note - Antonia Gordon MD - 01/21/2020 10:04 AM GALLERY OR MUSEUM TECHNICIAN Patient: JORGE LANIER Age: 74 Years Sex: Female : 1945 Admit Date 01/20/2020 03:50 Discharge Date 01/21/2020 Primary Care Provider DAPHNE GLOVER MD Discharge Diagnosis Stress incontinence due to pelvic organ prolapse 01/21/2020 N39.3 ICD-10-CM Status post creation of urethral sling by suprapubic approach 01/21/2020 Z98.890 ICD-10-CM S/P sacrocolpopexy 01/21/2020 Z98.890 ICD-10-CM Hypertension 01/21/2020 I10 ICD-10-CM Nausea in adult 01/21/2020 R11.0 ICD-10-CM Procedures SN - Proc - Procedure: Sacral Colpopexy Robotic (01/20/20 13:17:16) SN - Proc - Procedure: Cystoscopy Adult (01/20/20 13:17:16) Reason for Hospitalization robotic colpopexy for stress incontinence due to prolapse Hospital Course Pleasant 74 y/o WF w/ stress urinary incontinence due to vaginal prolapse admitted for elective robotic assisted laparoscopic sacrocolpopexy and suburethral sling. Post op she was feeling nauseated, but it was controlled by antiemetics. Pain well controlled. ambulated w/o issue. vaginal prolapse and incontinence s/p robotic assisted laparoscopic sacrocolpopexy and suburethral sling prn pain meds adv diet as tolerated ambulate check post op labs post op nausea prn zofran adv diet as tolerated hypertension cont bisoprolol hyperlipidemia cont statin prophylaxis dvt via lovenox gi via pepcid Vital Signs T: 37.3 ??C TMIN: 36.5 ??C TMAX: 37.3 ??C HR: 109(Monitored) RR: 16 BP: 109/59 SpO2: 95% HT: 167.64 cm WT: 86.36 kg BMI: 30.7 Oxygen Settings (Last) Oxygen Therapy Mode: Room air (01/21/20 07:52:00) Oxygen Flow Rate: 2 Liter/Min (01/20/20 15:57:00) Physical Exam General: Alert and oriented, No acute distress. [...] incisions c/d/i. Genitourinary: No costovertebral angle tenderness. Discharge Disposition home Discharge Follow Up Follow up with specialist - Within 1 to 2 weeks VANE QUINTANA JR, MD-URO - Within 2 to 3 days Discharge Medications (9) Active bisoprolol 2.5 mg, Oral, Daily Colace 100 mg oral capsule 100 mg = 1 Cap, Oral, BID estradiol 2 mg, Oral, Daily Macrobid 100 mg oral capsule 100 mg = 1 Cap, Oral, BID meloxicam 15 mg, Oral, Daily MiraLax oral powder for reconstitution 17 Gram, Oral, Daily Multiple Vitamins oral tablet 1 Tab, Oral, Daily [place] 7.5 mg-325 mg oral tablet 1 Tab, PRN, Oral, Q4H simvastatin 40 mg, Oral, At Bedtime Code Status Start: 01/20/20 7:18:00 EST, Full Code, Continuous Order Condition on Discharge stable Consulting Physicians RD LEIGH MD-ANS Current Diet Order Diet, Adult - Ordered -- Start: 01/20/20 16:07:00 EST, Regular Diet, Isolation: Standard Precautions Patient Discharge Summary Orders Discharge Follow Up Instructions: Lidia 3 weeks Follow Up Labs/Studies CBC Results (Current Encounter/Past 24 Hours) WBC 11.4 K/uL CA 01/21/2020 05:07 Hct 30.8 % LOW 01/21/2020 05:07 Hgb 10.2 Gram/dL LOW 01/21/2020 05:07 Platelet Count 206 K/uL 01/21/2020 05:07 CMP Results (Current Encounter/Past 24 Hours) Creatinine Level 0.74 mg/dL 01/21/2020 05:12 Bun/Creatinine 20.3 CA 01/21/2020 05:12 eGFR >60 mL/min/1.73m2 01/21/2020 05:12 eGFR NonAfrican >60 mL/min/1.73m2 01/21/2020 05:12 Bun/Creatinine 20.3 CA 01/21/2020 05:15 Protein Total 5.4 Gram/dL LOW 01/21/2020 05:16 A/G Ratio 1.2 01/21/2020 05:16 Globulin 2.5 Gram/dL 01/21/2020 05:16 Protein Total 5.4 Gram/dL LOW 01/21/2020 07:37 Bun/Creatinine 20.3 CA 01/21/2020 07:37 Protein Total 5.4 Gram/dL LOW 01/21/2020 05:38 Sodium Level 138 mmol/L 01/21/2020 05:12 Potassium Level 4.8 mmol/L 01/21/2020 05:12 Chloride Level 104 mmol/L 01/21/2020 05:12 Carbon Dioxide Level 29 mmol/L 01/21/2020 05:12 Anion Gap 10 01/21/2020 05:12 Alk Phos 71 Units/Liter 01/21/2020 05:16 ALT 22 Units/Liter 01/21/2020 05:16 AST 22 Units/Liter 01/21/2020 05:16 Blood Urea Nitrogen 15 mg/dL 01/21/2020 05:12 Glucose Level 115 mg/dL HI 01/21/2020 05:15 Albumin Level 2.9 Gram/dL LOW 01/21/2020 05:16 Bilirubin Total 0.6 mg/dL 01/21/2020 05:16 Calcium Level 8.3 mg/dL LOW 01/21/2020 05:12 Pending Labs Ordered Platelet Count Specimen Type: Blood, Routine collect, 01/22/20 7:18:00 EST, Q48H, Lab Collect Time Spent on Discharge 45min documented in this encounter Plan of Treatment Not on file documented as of this encounter Visit Diagnoses Not on filedocumented in this encounter
--- NOTE | 2024-08-27 15:28 | US_ITS ---
FINAL REPORT TECHNIQUE: Real-time grayscale and color ultrasound of the thyroid was performed. CLINICAL HISTORY: monitor thyroid nodules COMPARISON: 08/24/2023 FINDINGS: The thyroid gland measures 5.3 x 2.0 x 2.2 cm on the right and 4.9 x 1.6 x 2.0 cm on the left. The isthmus measures 3 mm. Nodules: There is a multitude of heterogeneous mixed echogenicity lesions in the thyroid gland. These mixed lesions are similar to the prior study. The largest measures up to 1.6 cm. There is a more solid hypoechoic focus in the inferior right lobe of the thyroid labeled nodule D measuring up to 1.6 cm. This is slightly larger than on the previous exam and consistent with a TR 4 nodule. On the left is a rounded nodule in the periphery of the left lobe measuring 1.2 x 1.1 cm, solid, containing microcalcifications, and probably stable as best can be determined. IMPRESSION: Right 1.6 cm TR 4 nodule slightly larger than the previous study. Recommend FNA per TI-RADS criteria. Overall appearance is that of a multinodular goiter. Reviewed, Interpreted and Dictated by Jason Nielsen MD Transcribed by Olga Pickard Authenticated and [facility]
== END 2024-08-27 23:59 | disposition home or self-care (01) ==
LOC: RAD 15:13
PROVIDERS: PCP Family Medicine; Visit Provider Nurse Practitioner
DX: E04.2 Nontoxic multinodular goiter (principal)
CPT/HCPCS: 76536

== ENCOUNTER 2024-09-01 15:02 | Outpatient (CLI) | payer BC, MEDICARE, SELFPAY ==
--- OUTSIDE RECORDS SUMMARY | 2023-10-22 11:30 | XMS_ITS ---
Author Organization [facility] Address [address] [facility] [address] [place] [phone] Care Team Providers Care Plumber Supervisor Name Role Phone Gera Remy Primary Care Provider [phone] Becky Amador Unavailable [phone] Allergies Allergen (clinical drug ingredient) Drug/Non Drug Allergy documented on EMR Reaction Allergy Type Onset Date Status Dye SENIOR LIVING Blue 1 shivers/shaking Drug Allergy Active Results Component Value Reference Range Notes CBC Fingerstick (in house) Reviewed date:10/22/2023 04:29:07 PM Interpretation: Performing Lab: Notes/Report: wbc 7.2 3.5 - 10 lym 35.8 15 - 50 mid 6.5 2 - 15 gran 57.7 35 - 80 rbc 4.93 3.5 - 5.5 hgb 14.5 11.5 - 16.5 hct 44.7 35 - 55 mcv 90.6 75 - 100 mch 29.4 25 - 35 mchc 32.4 31 - 38 plat 123 100 - 400 REASON FOR VISIT dizzy and nausea Medications Medication SIG (Take, Route, Frequency, Duration) Notes Start Date End Date Status Meloxicam 7.5 MG 1 tab(s) orally bid for 30 days Not-Taking Cephalexin 500 MG 1 cap(s) orally every 12 hours for 10 day(s) 10/12/2020 Not-Taking Lisinopril-hydroCHL OROthiazide 10-12.5 MG 1 tab po qd Not-Taking Estradiol 1 MG 1 tab(s) orally once a day Not-Taking Simvastatin 40 MG 1 tab orally at bedtime Not-Taking Multivitamin - 1 tab(s) orally once a day for 30 day(s) Active Bisoprolol Fumarate 5 MG 1/2 tab(s) orally once a day Active Rosuvastatin Calcium 10 MG TAKE 1 TABLET BY MOUTH EVERY DAY for 90 days Active Furosemide 20 MG TAKE 1 TABLET BY MOUTH EVERY DAY NEEDED for 90 Active Meloxicam 15 MG 1 tab(s) orally once a day Not-Taking Diclofenac Sodium 75 MG 1 tab(s) orally 2 times a day for 30 day(s) Active Aspirin 81 MG 1 TAB P.O. Q DAY *Please review and pick correct strength-formulati on from [employer] options. If intended option is not shown, discontinue and re-order from Quick Search* Active Vital Signs Blood pressure systolic 124 mm Hg 10/22/19 24 Blood pressure diastolic 68 mm Hg 024 Heart Rate 70 /min 10/22/2023 Height 65.5 in 10/22/2023 Weight 177.8 lbs 10/22/2023 BMI 29.13 kg/m2 10/22/2023 Encounters Encounter Location Date Provider Diagnosis [facility] [address] [facility] 36 [facility] [address] [place] [id number] 10/22/2023 Becky Amador Gastroenteritis K52. 9 Assessments Encounter Date Diagnosis (ICD Code) Assessment Notes Treatment Notes Treatment Clinical Notes Section Notes 10/22/2023 Gastroenteritis (ICD-10 - K52.9) fluids, rest, supportive measures for fever/symptom relief, bland foods in small amounts with good fluid intake--small amounts frequently; no soda or caffeine Plan Of Treatment Treatment Notes Assessment Notes Gastroenteritis fluids, rest, suppor tive measures for fever/symptom relief, bland foods in small amounts with good fluid intake--small amounts frequently; no soda or caffeine Next Appt Details Follow Up: prn, Reason: Provider Name:Gera Trejo, 10/14/2024 03:00:00 PM, [address] [facility] [address] [facility], [address], [place], [phone], Progress Notes * JORGE LANIERDOB:1945 ( 79 yo F)Acc No.[id number]:10/22/2023 Progress Notes Patient: JORGE MAN Provider: BERNARDINO Busby :1945 A ge:78 Y S ex:Female Date:10/22/2023 Address:[facility], [id number] Pcp:Gera Remy Subjective: * Chief Complaints: * 1 . Dizzy and nausea. * HPI: N eurology: 78 year old female presents with c/o Dizziness P t presents today with c/o dizziness and nausea. Pt sts that yesterday she started having some dizziness with standing. Pt sts that she could not stand up yesterday without becoming dizzy. Pt sts that she would have to stand for a minute or so to gather herself before she could walk and would still have to hold onto the wall. Pt sts that she has been working in a building that is very hot and she has not been able to drink as much water as she should. Pt sts that she has drank more water today and feels a bit better. Pt sts that she had some dry mouth, lips and throat yesterday as well. Pt sts that she is still having some dizziness but sts that it is not as bad. H PI: Pt had labs drawn for Dr. Chowdhury last week (see pt docs); labs reviewed. G astroenterology: c/o Nausea. c/o Vomiting x 3 yesterday. Denies : Abdominal Pain. D enies : Diarrhea. D enies : Fever. normal stool today. * ROS: D ERMATOLOGY: no R elder. n o H marin. G ASTROENTEROLOGY: Nausea y es. n o V omiting. n o D iarrhea.? U ROLOGY: no D ifficulty urinating. n o B lood in urine. * Medical History: H yperlipidemia, Arthritis, Multinodular goiter, Thyroid cyst, HBP, Colon polyps. * Surgical History: t onsillectomy x 2 , gallbladder , appendectomy , breast bx , OLIVIA , skin ca sx on face , C/5-6, C/6-7 microdiskectomies and fusion/ Dr. Guzman 10/19/2006, I&D skin abscess , C-scope/polyps/ Amarilys , stress test , heart cath/ normal coronaries/ Dr Chowdhury 02/2017, colonoscopy-Dr Panda 09/2019, Dr. Murillo- bladder sling 01/20/2020, Total Knee Replacement of the Right Knee - Dr. Tommy Velarde 03/30/2022, Lymph Node Biopsy 02/2023. * Hospitalization/Major Diagno stic Procedure: s ee above . * Family History: F ather: , coronary artery disease, COPD, colon cancer. M other: , diabetes, CHF. 3 brother(s) , 1 sister(s) . 2 son(s) . . * Social History: C URRENT TOBACCO USE S moking Status: Patient does NOT smoke. C affeine: yes, frequency:daily. Home smoke detector use: yes. Marital Status: . Past smoking status: no. Recreational drug use: no. Alcohol: no. * Medications: T aking Diclofenac Sodium 75 MG Tablet Delayed Release 1 tab(s) orally 2 times a day , Taking Aspirin 81 MG 1 TAB P.O. Q DAY , Notes to Pharmacist: *Please review and pick correct strength-formulation from [employer] options. If intended option is not shown, discontinue and re-order from Quick Search*, Taking Multivitamin - Tablet 1 tab(s) orally once a day , Taking Bisoprolol Fumarate 5 MG Tablet 1/2 tab(s) orally once a day , Taking Furosemide 20 MG Tablet TAKE 1 TABLET BY MOUTH EVERY DAY NEEDED , Taking Rosuvastatin Calcium 10 MG Tablet TAKE 1 TABLET BY MOUTH EVERY DAY , Not-Taking Meloxicam 15 MG Tablet 1 tab(s) orally once a day , Not-Taking Lisinopril-hydroCHLOROthiazide 10-12.5 MG Tablet 1 tab po qd , Not-Taking Simvastatin 40 MG Tablet 1 tab orally at bedtime , Not-Taking Estradiol 1 MG Tablet 1 tab(s) orally once a day , Not-Taking Cephalexin 500 MG Capsule 1 cap(s) orally every 12 hours , Not-Taking Meloxicam 7.5 MG Tablet 1 tab(s) orally bid , Medication List reviewed and reconciled with the patient * Allergies: D ye SENIOR LIVING Blue 1: shivers/shaking. Objective: * Vitals: W t:177.8, Temp:98.3, BP:124/68, HR:70, O2 Sat:94% on RA, Nurse:PARVEEN, Ht: 65.5, BMI:29.13. * Examination: G eneral Examination: General Appearance: NAD, appears healthy, alert, pleasant. HEENT: sclera and conjunctiva clear, PERRLA, TM's normal, translucent. Oral cavity: mucosa moist and WNL, no erythema, normal.? Neck: supple, no lymphadenopathy, no carotid bruits.? Heart: RRR. Lungs: CTAB A&P. Abdomen: bowel sounds present, soft and nontender, no guarding or rigidity. Neurologic Exam: alert and oriented. Extremities: ankle brace on the left ; no edema on the right. Assessment: * Assessment: Lisbet. Winston astroenteritis - K52.9 (Primary) Plan: * Treatment: Value Reference Range w bc 7.2 3.5 - 10 * l ym 35.8 15 - 50 * m id 6.5 2 - 15 * g ran 57.7 35 - 80 * r bc 4.93 3.5 - 5.5 * h gb 14.5 11.5 - 16.5 * h ct 44.7 35 - 55 * m cv 90.6 75 - 100 * m ch 29.4 25 - 35 * m chc 32.4 31 - 38 * p lat 123 100 - 400 * [place]ak 10/22/2023 4:11 :47 PM > results reviewed w/ pt in office Notes: fluids, rest, supportive measures for fever/symptom relief, bland foods in small amounts with good fluid intake--small amounts frequently; no soda or caffeine?? * Procedure Codes: 9 [address] [place], [address] CAPILLARY BLOOD DRAW, 34744 CBC WITH AUTO DIFF * Follow Up: p rn * Billing Information: * Visit Code: 06526 Office Visit, Est Pt., Level 3. * Procedure Codes: [address] [place]. [address] CAPILLARY BLOOD DRAW. 16968 CBC WITH AUTO DIFF. * Electronic signature of Leyda Amador APRN on 09/01/2024 at 03:04 PM EDT Sign off status: Pending * Provider: BERNARDINO Busby Date: 10/22/2023 Generated for Rafi moreno/Guillermo/Anisha on: 0 09/01/2024 03:04 PM EDT History and Physical Notes * HPI (History of Present Illness) Category Sub-Category Detail Notes Category Not es Neurology Dizziness Pt presents toda y with c/o dizziness and nausea. Pt sts that yesterday she started having some dizziness with standing. Pt sts that she could not stand up yesterday without becoming dizzy. Pt sts that she would have to stand for a minute or so to gather herself before she could walk and would still have to hold onto the wall. Pt sts that she has been working in a building that is very hot and she has not been able to drink as much water as she should. Pt sts that she has drank more water today and feels a bit better. Pt sts that she had some dry mouth, lips and throat yesterday as well. Pt sts that she is still having some dizziness but sts that it is not as bad Gastroenterology Fever normal stoo l today Vomiting x3 yesterday Abdominal Pain Diarrhea Nausea HPI Pt had labs meagan wn for Dr. Chowdhury last week (see pt docs); labs reviewed Examination Category Sub-Category Detail Notes Category Not es General Examination HEENT: sclera and c onjunctiva clear, PERRLA, TM's normal, translucent Heart: RRR Lungs: CTAB A&P Abdomen: bowel sounds present , soft and nontender, no guarding or rigidity Extremities: ankle brace on the l eft ; no edema on the right General Appearance: NAD, appears healthy , alert, pleasant Neurologic Exam: alert and oriented Neck: supple, no lymphaden opathy, no carotid bruits Oral cavity: mucosa moist and WNL , no erythema, normal
--- OUTSIDE RECORDS SUMMARY | 2024-03-01 06:30 | XMS_ITS ---
Author Organization [facility] Address [address] [facility] [address] [place] [phone] Care Team Providers Care Neurodiagnostic Tech Name Role Phone Gera Remy Primary Care Provider Parviz Friend Unavailable [phone] Allergies Allergen (clinical drug ingredient) Drug/Non Drug Allergy documented on EMR Reaction Allergy Type Onset Date Status Dye ALF Blue 1 shivers/shaking Drug Allergy Active Results Component Value Reference Range Notes Influenza Screen (in house) Reviewed date:03/01/2024 10:56:31 AM Interpretation:Negative Performing Lab: Notes/Report: Negative results neg CBC Fingerstick (in house) Reviewed date:03/01/2024 11:22:11 AM Interpretation: Performing Lab: Notes/Report: wbc 3.8 3.5 - 10 lym 48.1 15 - 50 mid 7.8 2 - 15 gran 44.1 35 - 80 rbc 5.13 3.5 - 5.5 hgb 15.2 11.5 - 16.5 hct 45.1 35 - 55 mcv 87.8 75 - 100 mch 29.6 25 - 35 mchc 33.7 31 - 38 plat 105 100 - 400 Covid test (in house) Reviewed date:03/01/2024 10:57:01 AM Interpretation:Negative Performing Lab: Notes/Report: Negative Result: neg REASON FOR VISIT coughing,dizzy spells Medications Medication SIG (Take, Route, Frequency, Duration) Notes Start Date End Date Status Rosuvastatin Calcium 10 MG TAKE 1 TABLET BY MOUTH EVERY DAY for 90 days Active Multivitamin - 1 tab(s) orally once a day for 30 day(s) Active Aspirin 81 MG 1 TAB P.O. Q DAY Active Furosemide 20 MG TAKE 1 TABLET BY GARRETT TH EVERY DAY NEEDED for 90 Active Bisoprolol Fumarate 5 MG 1/2 tab(s) oral ly once a day Active Estradiol 1 MG 1 tab(s) orally once a day Not-Taking Simvastatin 40 MG 1 tab orally at bedtime Not-Taking Diclofenac Sodium 75 MG 1 tab(s) orally 2 times a day for 30 day(s) Active Meloxicam 7.5 MG 1 tab(s) orally bid for 30 days Not-Taking Cephalexin 500 MG 1 cap(s) orally ever y 12 hours for 10 day(s) 10/12/2020 Not-Takin g Lisinopril-hydroCHLOROthi azide 10-12.5 MG 1 tab po qd Not-Taking Meloxicam 15 MG 1 tab(s) orally once a day Not-Taking Vital Signs Blood pressure systolic 112 mm Hg 03/01/20 24 Blood pressure diastolic 70 mm Hg 024 Heart Rate 69 /min 03/01/2024 Height 65.5 in 03/01/2024 Weight 181.6 lbs 03/01/2024 BMI 29.76 kg/m2 03/01/2024 Encounters Encounter Location Date Provider Diagnosis [facility] [address] [place], [place] [phone] 03/01/2024 Parviz Friend Cough, unspecified t ype R05.9 Assessments Encounter Date Diagnosis (ICD Code) Assessment Notes Treatment Notes Treatment Clinical Notes Section Notes 03/01/2024 Cough, unspecified type (ICD-10 - R05.9) fluids, rest, supportive measures for fever/symptom relief Plan Of Treatment Treatment Notes Assessment Notes Cough, unspecified type fluids, rest, tam pportive measures for fever/symptom relief Next Appt Details Follow Up: prn, Reason: Provider Name:Gera Trejo, 10/14/2024 03:00:00 PM, [address], [address], [place], [place], [phone], Progress Notes * JORGE LANIERDOB:1945 ( 79 yo F)Acc No.[id number]:03/01/2024 Progress Notes Patient: JORGE MAN Provider: Nikko Friend M.D. :1945 A ge:78 Y S ex:Female Date:03/01/2024 Address:[address] [place], [id number] Pcp:Gera Remy Subjective: * Chief Complaints: * 1 . Coughing,dizzy spells. * HPI: E NT/respiratory: 78 year old female presents with c/o cough T he pt states she started about 3 weeks ago with head ache and dizziness. Pt states she started with cough and fever on Sunday and was worse on Sunday. Pt states her fever broke on . c/o Fever.? Denies : sore throat. * ROS: D ERMATOLOGY: no R elder. n o H marin. G ASTROENTEROLOGY: no N ausea. n o V omiting. n o D [...] MG 1 TAB P.O. Q DAY , Taking Multivitamin - Tablet 1 tab(s) orally [...] with the patient * Allergies: D ye ALF Blue 1: shivers/shaking. Objective: * Vitals: W t:181.6, Temp:98.0, BP:112/70, HR:69, Nurse:BRYSON, Ht: 65.5, BMI:29.76. * Examination: E NT/Respiratory: General Appearance: N AD. Eyes: P ERRLA, sclera clear. Oral cavity : m inimal erythema without exudate on pharynx.? Neck : n o cervical lymphadenopathy. Heart : R RR, normal S1 S2. Lungs: c lear to auscultation bilaterally. Assessment: * Assessment: 1. C ough, unspecified type - R05.9 (Primary) Plan: * Treatment: Value Reference Range r esults neg * [place] 03/01/2024 10: 56:20 AM > results reviewed w/ pt in office ?LAB: CBC Fingerstick (in house) (Collection Date & Time - 03/01/2024)* Value Reference Range w bc 3.8 3.5 - 10 * l ym 48.1 15 - 50 * m id 7.8 2 - 15 * g ran 44.1 35 - 80 * r bc 5.13 3.5 - 5.5 * h gb 15.2 11.5 - 16.5 * h ct 45.1 35 - 55 * m cv 87.8 75 - 100 * m ch 29.6 25 - 35 * m chc 33.7 31 - 38 * p lat 105 100 - 400 * [place] 03/01/2024 11: 22:02 AM > results reveiwed w/ pt in office ?LAB: Covid test (in house) (Collection Date & Time - 03/01/2024)?Negative* Value Reference Range R esult: neg * [place] 03/01/2024 10: 56:53 AM > results reviewed w/ pt in office Notes: fluids, rest, supportive measures for fever/symptom relief?? * Procedure Codes: G 2211 Complex e/[place], [address] CAPILLARY BLOOD DRAW, 58248 CBC WITH AUTO DIFF, 93484 Flu Test- Nasal Swab, Modifiers: QW , 47174 COVID TEST IN HOUSE, Modifiers: QW * Follow Up: p rn * Billing Information: * Visit Code: 96220 Office Visit, Est Pt., Level 3. * Procedure Codes: G2211 Complex e/[place]. [address] CAPILLARY BLOOD DRAW. 99058 CBC WITH AUTO DIFF. 89589 Flu Test- Nasal Swab. Modifiers: QW 72025 COVID TEST IN HOUSE. Modifiers: QW * Electronic signature of Hannah Friend MD on 09/01/2024 at 03:05 PM EDT Sign off status: Pending * Provider: Nikko Friend M.D. Date: 05/02/2023 Generated for Rafi moreno/Guillermo/eTransmitting on: 0 09/01/2024 03:05 PM EDT History and Physical Notes * HPI (History of Present Illness) Category Sub-Category Detail Notes Category Not es ENT/respiratory sore throat cough The pt states she st arted about 3 weeks ago with head ache and dizziness. Pt states she started with cough and fever on Sunday and was worse on Sunday. Pt states her fever broke on Fever Examination Category Sub-Category Detail Notes Category Not es ENT/Respiratory Oral cavity : minimal erythema without exudate on pharynx Neck : no cervical lymphade nopathy Heart : RRR, normal S1 S2 Lungs: clear to auscultatio n bilaterally General Appearance: NAD Eyes: PERRLA, sclera clear
--- OUTSIDE RECORDS SUMMARY | 2024-07-01 10:30 | XMS_ITS ---
Author Organization [facility] Address [address] [facility] [address] [place] [id number] Care Team Providers Care Catalogue Clerk Name Role Phone Gera Remy Primary Care Provider Allergies Allergen (clinical drug ingredient) Drug/Non Drug Allergy documented on EMR Reaction Allergy Type Onset Date Status Dye RESIDENTIAL Blue 1 shivers/shaking Drug Allergy Active REASON FOR VISIT bad cough, fell on 06/30 knot on head Medications Medication SIG (Take, Route, Frequency, Duration) [...] MG 1 tab orally at bedtime Not-Taking Yzziplkwy-Khgmgvkp-MB 30-1-20 MG/5ML 5-10 ml Orally every 6 hrs prn 07/01/2024 Active Meloxicam 15 MG 1 tab(s) orally once a day Not-Taking Zithromax Z-Ron 250 MG as directed Orally 07/02/19 25 Active Rosuvastatin Calcium 10 MG TAKE 1 TABLET BY MOUTH EVERY DAY for 90 days Active Furosemide 20 MG TAKE 1 TABLET BY GARRETT TH EVERY DAY NEEDED for 90 Active Aspirin 81 MG 1 TAB P.O. Q DAY Active Diclofenac Sodium 75 MG 1 tab(s) orally 2 times a day for 30 day(s) Active Bisoprolol Fumarate 5 MG 1/2 tab(s) oral ly once a day Active Multivitamin - 1 tab(s) orally once a day for 30 day(s) Active Vital Signs Blood pressure systolic 120 mm Hg 07/02/19 25 Blood pressure diastolic 76 mm Hg 025 Heart Rate 90 /min 07/01/2024 Height 65.5 in 07/01/2024 Weight 182.8 lbs 07/01/2024 BMI 29.95 kg/m2 07/01/2024 Encounters Encounter Location Date Provider Diagnosis [facility] [address] [facility] [address] [place], [place] [id number] 07/01/2024 Gera Remy Acute bronchitis J20 .9 ; Scalp contusion S00.03XA ; Generalized osteoarthritis M15.9 and BMI 29.0-29.9,adult Z68.29 Assessments Encounter Date Diagnosis (ICD Code) Assessment Notes Treatment Notes Treatment Clinical Notes Section Notes 07/01/2024 Acute bronchitis (ICD-10 - J20.9) 07/01/2024 Scalp contusion (ICD-10 - S00.03XA) Ice to hematoma 3 times daily 07/01/2024 Generalized osteoarthritis (ICD-10 - M15.9) 07/01/2024 BMI 29.0-29.9,adult (ICD-10 - Z68.29) Plan Of Treatment Medication Medication Name Sig Start Date Stop Date Notes Uzmjvmvlx-Vpmhyxum-CN 30-1-2 0 MG/5ML 5-10 ml Orally every 6 hrs prn 07/01/2024 Zithromax Z-Ron 250 MG as directed Orally 07/01/2024 Treatment Notes Assessment Notes Scalp contusion Ice to hematoma 3 ti mes daily Next Appt Details Follow Up: prn, Reason: Provider Name:Gera Trejo, 10/14/2024 03:00:00 PM, [address] [facility] [address], [address], [place], [id number], Progress Notes * JORGE LANIERDOB:1945 ( 79 yo F)Acc No.[id number]:07/01/2024 Progress Notes Patient: JORGE MAN Provider: Gera Remy M.D. :1945 A ge:78 Y S ex:Female Date:07/01/2024 Address:[address] [place], [place] [address]E [facility], [id number] Subjective: * Chief Complaints: * 1 . Bad cough, fell on 06/30 knot on head. * HPI: E NT/respiratory: 78 year old female presents with c/o cough T he pt states she has had a productive cough for about a week. Pt states her on june 18. Pt states denies any fever . Pt states she had a sore throat but that has resolved.. Denies : sore throat. D enies : Fever. D enies : Chest Pain. D enies : Short of Breath. H PI: Patient states she fell yesterday and hit the back of her head. She jumped up quickly to answer her phone and became lightheaded and fell backwards hitting her head against the door facing. There was no loss of consciousness. She developed a knot on the back of her head yesterday which is gone down some. She complains of soreness around the area. No blurred vision or double vision. Denies dizziness. No nausea or vomiting. * ROS: D ERMATOLOGY: no R elder. [...] with the patient * Allergies: D ye RESIDENTIAL Blue 1: shivers/shaking. Objective: * Vitals: W t: 182.8, Temp: 98.1, BP: 120/76, HR: 90, Nurse: BRYSON, Ht: 65.5, BMI:29.95. * Examination: G eneral Examination: General Appearance: A lert and oriented , NAD. HEENT: S mall hematoma over right parietal area.. Oral cavity: n o lesions, mucosa moist and WNL, no erythema. Neck: N o tenderness of the cervical spine. Heart: R SR. Lungs: F ew upper airway rhonchi. No wheezes. Neurologic Exam: N o focal motor deficits. Assessment: * Assessment: 1. A cute bronchitis - J20.9 (Primary) 2 . S calp contusion - S00.03XA 3 . G eneralized osteoarthritis - M15.9 4 . B OH 29.0-29.9,adult - Z68.29 Plan: * Treatment: 2. S calp contusion Notes: Ice to hematoma 3 times daily * Procedure Codes: G 2211 Complex e/m visit add on, 3074F SYST BP LT 130 MM HG, 3078F DIAST BP < 80 MM HG, G8420 BMI<30 AND >=22 CALC & DOCU * Follow Up: p rn * Billing Information: * Visit Code: 01301 Office Visit, Est Pt., Level 3. * Procedure Codes: G2211 Complex e/m visit add on. 3074F SYST BP LT 130 MM HG. 3078F DIAST BP < 80 MM HG. G8420 BMI<30 AND >=22 CALC & DOCU. * Electronic signature of Gera Remy MD on 09/01/2024 at 03:05 PM EDT Sign off status: Pending * Provider: Gera Remy M.D. Date: 0 07/01/2024 Generated for Rafi moreno/Guillermo/eTransmitting on: 0 09/01/2024 03:05 PM EDT History and Physical Notes * HPI (History of Present Illness) Category Sub-Category Detail Notes Category Not es ENT/respiratory sore throat Short of Breath Chest Pain cough The pt states she sparks s had a productive cough for about a week. Pt states her on june 18. Pt states denies any fever . Pt states she had a sore throat but that has resolved. Fever Examination Category Sub-Category Detail Notes Category Not es General Examination HEENT: Small hemato ma over right parietal area. Heart: RSR Lungs: Few upper airway rho nchi. No wheezes General Appearance: Alert and oriented , NAD Neurologic Exam: No focal motor defic its Neck: No tenderness of the cervical spine Oral cavity: no lesions, mucosa m oist and WNL, no erythema
--- OUTSIDE RECORDS SUMMARY | 2024-09-01 15:05 | XMS_ITS | Encounter Summary ---
Author Organization [employer] Address [address] [place] [address] Care Team Providers Care Chain Sales Representative Name Role Phone Unavailable Primary Care Provider Unavailabl e Encounter Details Date Type Department Care Team (Late st Contact Info) Description 01/21/2020 Transcribed Document [facility] [place] [facility] [address] ProviderAntonia MD [address] [place] [address] Social History Tobacco Use Types [...] - Antonia ProviderMD - 01/21/2020 5:00 AM HOGSHEAD WEIGHER Chart Check - Review Order Profile Entered [...]
--- OUTSIDE RECORDS SUMMARY | 2024-09-01 15:05 | XMS_ITS | Encounter Summary ---
Author Organization [employer] Address [address] [place] [address] Care Team Providers Care Cutter Head Sharpener Name Role Phone Unavailable Primary Care Provider Unavailabl e Encounter Details Date Type Department Care Team (Late st Contact Info) Description 01/13/2020 Transcribed Document [facility] [place] [facility] [place] [address] ProviderAntonia MD [address] [place] [address] Social History Tobacco Use Types [...] - Antonia ProviderMD - 01/13/2020 12:08 PM PIECER UP PAT Adult Entered On: 01/13/2020 12:12 EST [...] Source : Stated Height Entry Format : [place] Height, Feet : 5 ft(Converted to: 152 cm, 60 Inch) Height, Inches : 6 Inch(Converted to: 0 ft 6 Inch, 15.24 cm) Clinical Height : 167.64 cm Weight Source : Standing scale Weight Entry Format : [place] Clinical Dosing Weight : 86.36 kg Weight, Pounds : 190 lb Body Surface Area (BSA) : 1.96 m2 Body Mass Index : 30.7 kg/m2 (HI) [place] Body Weight : 59 kg JUAN ANTONIO [...] ANTONIO HUSTON RN - 01/13/2020 12:08 EST [place] Suicide Severity Rating Scale (C-SSRS) CSSRS Past [...] in Unsafe Situation : No JUAN ANTONIO HUSOTN RN - 01/13/2020 12:08 EST Teaching/Learning Assessment [...] #2 Relationship : - Primary Language : Sami Communication Barrier : None Cabinet Builder Needed : No JUAN ANTONIO HUSTON RN [...]
--- OUTSIDE RECORDS SUMMARY | 2024-09-01 15:05 | XMS_ITS | Encounter Summary ---
Author Organization [employer] Address [address] [place] [address] Care Team Providers Care Arts Therapist Name Role Phone Unavailable Primary Care Provider Unavailabl e Encounter Details Date Type Department Care Team (Late st Contact Info) Description 01/21/2020 Transcribed Document [facility] [place] [facility] [place] [address] ProviderAntonia MD [address] [place] [id number] Social History Tobacco Use Types Packs/Day Years [...] - Historical ProviderMD - 01/21/2020 12:15 PM AUTHOR'S AGENT Attempt to Treat Entered On: 01/21/2020 16:16 [...]
--- OUTSIDE RECORDS SUMMARY | 2024-09-01 15:05 | XMS_ITS | Encounter Summary ---
Author Organization [employer] Address [address] [place] [address] Care Team Providers Care Formula Clerk Name Role Phone Unavailable Primary Care Provider Unavailabl e Encounter Details Date Type Department Care Team (Late st Contact Info) Description 01/20/2020 Transcribed Document [facility] [place] [facility] [address] ProviderAntonia MD [address] [place] [address] Social History Tobacco Use Types [...] - Antonia ProviderMD - 01/20/2020 12:38 PM INTERNAL AUDITOR [facility] Main OR IntraOp Summary Primary Physician: VANE QUINTANA JR, MD-URO Finalized Date/Time: 01/23/20 16:20:26 Pt. Name: AALIYAH BEATTY /Sex: 1945 Female Med Rec #: [id number] Physician: VANE QUINTANA JR, MD-URO Financial #: [id number] Pt. Type: O Room/Bed: [facility]/1 Admit/Disch: 01/20/20 03:50:00 - 01/21/20 12:00:00 [place] [facility] [place] Case Attendance Entry 1 Entry 2 Entry 3 Case Attendee VANE QUINTANA JR, Davis, Aleitha E, RN LEROY PACK ST MD-URO Role Performed Surgeon/Proceduralist, Race Car Driver, First Scrub, First First Time In [...] VIZCAINO CRNA Role Performed Scrub, Second Physician financial legal assistant PEDIATRIC CRITICAL CARE NURSE/Nurse Air Gun Operator Time In 01/20/20 12:20:00 01/20/20 12:20:00 01/20/20 [...] [facility] IntraOp Case Attendance Audit 01/20/20 14:11:58 It Administrative Assistant: ALEITHADAVIS Modifier: ALEITHADAVIS 1 <+> Time Out [...] Vaginal Sling Procedure, Cystoscopy Adult 01/20/20 13:42:53 It Administrative Assistant: ALEITHADAVIS Modifier: ALEITHADAVIS 7 <+> Time In 7 <*> Procedure Sacral Colpopexy Robotic, Vaginal Sling Procedure, Cystoscopy Adult 01/20/20 13:42:52 It Administrative Assistant: ALEITHADAVIS Modifier: ALEITHADAVIS 1 <*> Procedure Cystoscopy Adult 2 <*> Procedure Sacral Colpopexy Robotic, Vaginal Sling Procedure, Cystoscopy Adult 3 <*> Procedure Sacral Colpopexy Robotic, Vaginal Sling Procedure, Cystoscopy Adult 4 <*> Procedure Cystoscopy Adult 5 <*> Procedure Sacral Colpopexy Robotic, Vaginal Sling Procedure, Cystoscopy Adult 6 <*> Procedure Sacral Colpopexy Robotic, Vaginal Sling Procedure, Cystoscopy Adult 01/20/20 13:42:44 It Administrative Assistant: ALEITHADAVIS Modifier: ALEITHADAVIS <+> 7 Case Attendee <+> 7 Role Performed <+> 7 Procedure <+> 7 Other Attendee 01/20/20 13:17:20 It Administrative Assistant: ALEITHADAVIS Modifier: ALEITHADAVIS <+> 1 Procedure 2 <*> Procedure Sacral Colpopexy Robotic, Vaginal Sling Procedure 3 <*> Procedure Sacral Colpopexy Robotic, Vaginal Sling Procedure <+> 4 Procedure 5 <*> Procedure Sacral Colpopexy Robotic, Vaginal Sling Procedure 6 <*> Procedure Sacral Colpopexy Robotic, Vaginal Sling Procedure 01/20/20 12:55:48 It Administrative Assistant: ALEITHADAVIS Modifier: ALEITHADAVIS 2 <+> Time In [...] [facility] IntraOp Case Times Audit 01/20/20 14:11:58 It Administrative Assistant: ALEITHADAVIS Modifier: ALEITHADAVIS <+> 1 Out Room Time <+> 1 Stop Time 01/20/20 14:10:48 It Administrative Assistant: ALEITHADAVIS Modifier: ALEITHADAVIS <+> 1 Stop Time [...] [facility] IntraOp Counts Verification Audit 01/20/20 13:17:22 It Administrative Assistant: ALEITHADAVIS Modifier: ALEITHADAVIS 1 <*> Procedure Sacral [...] [facility] IntraOp Counts Final Audit 01/20/20 13:56:05 It Administrative Assistant: ALEITHADAVIS Modifier: ALEITHADAVIS 1 <*> Procedure Sacral Colpopexy Robotic, Vaginal Sling Procedure, Cystoscopy Adult 1 <+> Count Performed By (Scrub) 01/20/20 13:17:24 It Administrative Assistant: ALEITHADAVIS Modifier: ALEITHADAVIS 1 <*> Procedure Sacral [...] IntraOp Dressing and Packing Audit 01/20/20 12:55:31 It Administrative Assistant: CELESTINA Modifier: CELESTINA <+> 2 Type <+> [...] RN 01/20/20 12:44:50 [facility] IntraOp General Case Senior Solutions Consultant 1 Case Information OR OR 07 SJ [...] Mesh Tissue Implant Type Implant MESH Y [id number] SLING SYS MID-URETH Identification [id number] Description Implant Quantity 1 1 Implant Site SACRAL vagina Implant Identification Model Number Implant Identification Serial Number Implant [id number] Identification Lot Number Implant [facility] Identification Sci:Urology/Gynecology Sci:Urology/Gynecology Machine Driller Name: Implant [id number] Identification Catalog Number Implant Size Implant Has an Yes Expiration Date Implant Expiration 12/09/21 11/23/22 Date Wasted Radioactive Material Time Implanted Tissue Implant Continue for Tissue Implant Documentation Tissue Identification Number Graft Prep Per Machine Driller Instructions: Tissue Preparation Method: Reconstitution Solution: Reconstitution Solution Lot Number Reconstitution Solution Expiration Date: Thawing Solution Thawing Solution Lot Number Thawing Solution Expiration Date Preparation Materials, Other Preparation Materials, Other Lot Number Preparation Materials, Other Expiration Date Tissue Prepared/Processed By Machine Driller Paperwork Completed Implant Type Comment Last Modified By: Haven Chatterjee RN Davis, Aleitha E, RN 01/20/20 12:53:31 01/20/20 13:52:26 [facility] IntraOp Implant Log Audit 01/20/20 13:52:26 It Administrative Assistant: CELESTINA Modifier: CELESTINA <+> 2 Implant Identification Description <+> 2 Implant Identification Lot Number <+> 2 Implant Identification Machine Driller Name: <+> 2 Implant Expiration Date <+> [...] 42.5Gm vaginal PRESERVATIVE FREE - cream - [id number] Combo Med List Time Administered Route of [...] S[facility] IntraOp Patient Positioning Audit 01/20/20 13:17:22 It Administrative Assistant: CELESTINA Modifier: JAADAVIS 1 <*> Procedure Sacral [...] Intra Op Sign Out Audit 01/20/20 14:10:52 It Administrative Assistant: CELESTINA Modifier: JAADAVIS <+> 1 RN Sign [...] [facility] IntraOp Skin Prep Audit 01/20/20 13:17:23 It Administrative Assistant: JAADACARTER Modifier: ALEITHADAVIS 1 <*> Procedure Sacral [...] [facility] IntraOp Surgical Procedures Audit 01/20/20 14:10:53 It Administrative Assistant: ALEITHADAVIS Modifier: ALEITHADAVIS <+> 1 Stop <+> 2 Stop <+> 3 Start <+> 3 Stop 01/20/20 13:17:16 It Administrative Assistant: ALEITHADAVIS Modifier: ALEITHADAVIS 1 <*> Procedure Sacral [...] WANG IntraOp Time Out Audit 01/20/20 13:17:23 It Administrative Assistant: CELESTINA Modifier: CELESTINA 1 <*> Procedure to be Performed Sacral Colpopexy Robotic, Vaginal Sling Procedure Case Comments <None> Finalized By: Gia Pinto RN-EDUCATOR I Document Signatures Signed By: Haven Chatterjee RN 01/20/20 14:12 Gia Pinto RN-EDUCATOR I 01/23/20 16:20 Unfinalized History Date/Time Username Reason for Unfinalizing Freetext Reason for Unfinalizing 01/23/20 16:19 [id number] Chart Audit documented in this encounter Plan of Treatment Not on file documented as of this encounter Visit Diagnoses Not on filedocumented in this encounter
--- OUTSIDE RECORDS SUMMARY | 2024-09-01 15:05 | XMS_ITS | Referral Summary ---
Author Organization [employer] Address [address] [place] [address] Care Team Providers Care Slusher Operator Name Role Phone Unavailable Primary Care [...]
--- OUTSIDE RECORDS SUMMARY | 2024-09-01 15:05 | XMS_ITS | Encounter Summary ---
Author Organization [employer] Address [address] [place] [address] Care Team Providers Care Metal Molder Name Role Phone Unavailable Primary Care Provider Unavailabl e Encounter Details Date Type Department Care Team (Late st Contact Info) Description 01/20/2020 Transcribed Document [facility] [place] [facility] [place] [address] ProviderAntonia MD [address] [place] [address] Social History Tobacco Use Types [...] - Antonia ProviderMD - 01/20/2020 10:46 AM COMPUTER SOFTWARE ENGINEER Pre Procedure Adult Entered On: 01/20/2020 10:49 EST Performed On: 01/20/2020 10:46 EST by Hermelinda Deal RN Height and Weight, Clinical Dosing Height Source : Stated Height Entry Format : [place] Height, Feet : 5 ft(Converted to: 152 cm, 60 Inch) Height, Inches : 6 Inch(Converted to: 0 ft 6 Inch, 15.24 cm) Clinical Height : 167.64 cm Weight Source : Standing scale Weight Entry Format : [place] Clinical Dosing Weight : 86.36 kg Weight, Pounds : 190 lb Body Surface Area (BSA) : 1.96 m2 Body Mass Index : 30.7 kg/m2 (HI) [place] Body Weight : 59 kg Hermelinda Deal [...] Hermelinda Deal RN - 01/20/2020 10:46 EST [place] Suicide Severity Rating Scale (C-SSRS) CSSRS Past [...] #2 Relationship : - Primary Language : Mexican Communication Barrier : None Scholarship Counselor Needed : Hermelinda Sibley RN - 01/20/2020 [...] No impairment Lukas Moisture : Rarely moist Luksa Activity : Walks frequently Lukas Mobility : [...] Scale Risk Level : 0-24 Low Risk [place] Fall Interventions : Assistive devices within reach, [...] rendition version of the form. Chong Coma [place] Best Motor Response : Obey commands [place] Best Verbal Response : Oriented [place] Eye Opening Response : Spontaneous [place] Coma Score : 15 Hermelinda Deal RN - 01/20/2020 10:46 EST Electronically signed by Tracie [facility] Conversion Manager Of Exhibitions And Collections Cerner at 06/29/2022 12:29 PM CDT documented in this encounter Plan of Treatment Not on file documented as of this encounter Visit Diagnoses Not on filedocumented in this encounter
--- OUTSIDE RECORDS SUMMARY | 2024-09-01 15:05 | XMS_ITS | Encounter Summary ---
Author Organization [employer] Address [address] [place] [address] Care Team Providers Care Tankman Name Role Phone Unavailable Primary Care Provider Unavailabl e Encounter Details Date Type Department Care Team (Late st Contact Info) Description 01/20/2020 Transcribed Document [facility] [place] [facility] [place] [address] ProviderAntonia MD [address] [place], [place] [id number] Social History Tobacco Use Types Packs/Day Years [...] - Historical ProviderMD - 01/20/2020 7:18 AM OUTSIDE PROPERTY AGENT Consult Phone Call Documentation Entered On: 01/21/2020 2:25 EST Performed On: 01/20/2020 7:18 EST by Lucille Carvajal EXECUTIVE DIRECTOR-[facility] CO[facility] Phone Call for Consults Consult Phone Call/Page Attempt : First call Lucille Carvajal CARE ASST-HE[facility]IT COORD - 01/21/2020 2:24 EST documented in this encounter Plan of Treatment Not on file documented as of this encounter Visit Diagnoses Not on filedocumented in this encounter
--- OUTSIDE RECORDS SUMMARY | 2024-09-01 15:05 | XMS_ITS | Encounter Summary ---
Author Organization [employer] Address [address] [place] [address] Care Team Providers Care Shot Hole Shooter Name Role Phone Unavailable Primary Care Provider Unavailabl e Encounter Details Date Type Department Care Team (Late st Contact Info) Description 01/21/2020 Transcribed Document [facility] [place] [facility] [place] [facility] [place] [address] ProviderAntonia MD [address] [place] [address] Social History Tobacco Use Types [...] Antonia Gordon MD - 01/21/2020 10:04 AM PRIMARY CARE PROVIDER Patient: JORGE LANIER Age: 74 Years Sex: [...] Vitamins oral tablet 1 Tab, Oral, Daily [place] 7.5 mg-325 mg oral tablet 1 Tab, [...] (Current Encounter/Past 24 Hours) WBC 11.4 K/uL NM 01/21/2020 05:07 Hct 30.8 % LOW 01/21/2020 05:07 Hgb 10.2 Gram/dL LOW 01/21/2020 05:07 Platelet Count 206 K/uL 01/21/2020 05:07 CMP Results (Current Encounter/Past 24 Hours) Creatinine Level 0.74 mg/dL 01/21/2020 05:12 Bun/Creatinine 20.3 NM 01/21/2020 05:12 eGFR >60 mL/min/1.73m2 01/21/2020 05:12 eGFR NonAfrican >60 mL/min/1.73m2 01/21/2020 05:12 Bun/Creatinine 20.3 NM 01/21/2020 05:15 Protein Total 5.4 Gram/dL LOW 01/21/2020 05:16 A/G Ratio 1.2 01/21/2020 05:16 Globulin 2.5 Gram/dL 01/21/2020 05:16 Protein Total 5.4 Gram/dL LOW 01/21/2020 07:37 Bun/Creatinine 20.3 NM 01/21/2020 07:37 Protein Total 5.4 Gram/dL LOW [...]
--- OUTSIDE RECORDS SUMMARY | 2024-09-01 15:05 | XMS_ITS | Data Portability ---
Author Organization CHHAYA Thompson OSTRANDER CLOSED Address [address] [place] [address] Care Team Providers Care Waterproof Bag Sewer Name Role Phone DAPHNE GLOVER Primary Care Provider [phone] Assessment No assessment recorded. Plan of Treatment Reminders Order Date Submit Date Provider Last Modified By Organization Details Last Modified Time Details Appointments None recorded. Lab urinalysis panel, auto 2020 021 [facility], [address], [address], [place], [address], 1 13:28:48 urinalysis panel, auto 2019 [facility], [address], [address], [place], [address], 0 07:55:53 culture, urine 2019 [facility], [address] [place] [address], [address], 0 07:55:53 urinalysis , dipstick, auto 2019 [facility], [address], [place], [address], 0 07:25:16 urinalysis , dipstick, auto 2019 [facility], [address], [address], [place], [address], 0 08:20:26 culture, urine 2019 020 [facility], [facility] [place], [address], 0 14:37:51 Referral None recorded. Procedures urodynamic testing, complex (PROC) 2019 020 [email or web address] [facility], [address], [address], [place], [address], 0 16:10:19 Surgeries sling operation for stress incontinen ce (SURG) 2019 020 [facility] (Surgery Scheduling), [address], [place], [address], 0 15:52:24 laparoscop ic sacrocolpo pexy (SURG) 2019 020 [facility] (Surgery Scheduling), [address], [place], [address], 0 15:49:53 Imaging None recorded. Medication Orders None recorded. Patient TargetsNo targets recorded. Patient Instructions Encounter Date Encounter Id Patient Instructions Last Modified By Organization Details Last Modified Time 04/17/2019 [id number] Urinary Tract Infection (UTI) in Women: Care Instructions [facility] Not available 04/20/2019 14:21:27 bladder training : care instructions [facility] Not available 04/20/2019 14:21:27 kegel exercises: care [facility] Not available 04/20/2019 14:21:27 Stress Incontinence: Care Instructions t[facility] Not available 04/20/2019 14:21:27 Urge Incontinenc e: Care Instructions t[facility] Not available 04/20/2019 14:21:27 Plan for urodynamics with pessary. Patient is a good candidate for sacral colpopexy. We did discuss options for treatment of prolapse including but not limited to observation, pessary, surgery. Further recommendations to follow [facility] Not available 04/20/2019 14:21:56 05/12/2019 [id number] bladder training : care instructions [facility] Not available 05/15/2019 07:25:16 kegel exercises: care instructions [facility] Not available 05/15/2019 07:25:16 Stress Incontinence: Care Instructions t[facility] Not available 05/15/2019 07:25:16 bladder training : care instructions [facility] Not available 05/15/2019 07:25:16 kegel exercises: care instructions [facility] Not available 05/15/2019 07:25:16 Stress Incontinence: Care Instructions [facility] Not available 05/15/2019 07:25:16 Urge Incontinenc e: Care Instructions t[facility] Not available 05/15/2019 07:25:15 Plan for robotic-assisted left scopic sacral colpopexy and suburethral sling. We talked about risks and benefits of the procedure including but not limited to bleeding, infection, recurrence of symptoms. We also talked about risk involved with potential use of pelvic mesh. [facility] Not available 05/15/2019 07:25:33 02/09/2020 [id number] Urinary Tract Infection (UTI) in Women: Care Instructions [facility] Not available 02/16/2020 07:32:15 bladder training : care instructions [facility] Not available 02/16/2020 07:32:44 kegel exercises: care instructions [facility] Not available 02/16/2020 07:32:44 Stress Incontinence: Care Instructions [facility] Not available 02/16/2020 07:32:44 Urge Incontinenc e: Care Instructions [facility] Not available 02/16/2020 07:32:44 Patient is doing quite well following pelvic prolapse and anti incontinent surgery. She'll follow-up in 3 months with vaginal exam. [facility] Not available 02/16/2020 07:32:43 05/10/2020 [id number] bladder training : care instructions [facility] Not available 05/10/2020 13:28:48 kegel exercises: care instructions [facility] Not available 05/10/2020 13:28:48 Stress Incontinence: Care Instructions [facility] Not available 05/10/2020 13:28:47 Urge Incontinenc e: Care Instructions [facility] Not available 05/10/2020 13:28:48 Patient continue s to do well following surgery with out urinary incontinence and good pelvic support. Plan to see back in 1 year [facility] Not available 05/10/2020 13:28:24 Reason for Referral None Reported. Results Created Date Observation Date Name Description Value Unit Range Abnormal Flag Note LastModifiedBy Organization Detail LastModifiedTime 05/11/1905/10/2020 urina lysis panel , auto Unknown Analyte Clean Catch Not Available Replaced by [facility] With [address], [place], [address], 05/10/2020 12:36:37 05/11/19 21 05/10/2020 urina lysis panel , auto Unknown Analyte Yellow Not Available [facility] With [place] [address], [place], [address], 05/10/2020 12:36:37 05/11/19 21 05/10/2020 urina lysis panel , auto Unknown Analyte Clear Not Available [facility] [place] [address], [place], [address], 05/10/2020 12:36:37 05/11/19 21 05/10/2020 urina lysis panel , auto Unknown Analyte 1.020 Not Available [facility] With [place] [address], [place], [address], 05/10/2020 12:36:37 05/11/19 21 05/10/2020 urina lysis panel , auto Unknown Analyte 1.003- 1.035 Not Available Replaced by [facility] [address], [place], [address], 05/10/2020 12:36:37 05/11/19 21 05/10/2020 urina lysis panel , auto Unknown Analyte 5.0 Not Available [facility] [address], [place], [address], 05/10/2020 12:36:37 05/11/1905/10/2020 urina lysis panel , auto Unknown Analyte 5.0-8. 0 Not Available Replaced [facility] [address], [place], [address], 05/10/2020 12:36:37 05/11/19 21 05/10/2020 urina lysis panel , auto Unknown Analyte Negati ve Not Available Replaced [facility] [address], [place], [address], 05/10/2020 12:36:37 05/11/19 21 05/10/2020 urina lysis panel , auto Unknown Analyte Negati ve Not Available Replaced by [facility] [place] [facility] [address], [place], [address], 05/10/2020 12:36:37 05/11/19 21 05/10/2020 urina lysis panel , auto Unknown Analyte Negati ve Not Available Replaced by [facility] [place] [facility] [address], [place], [address], 05/10/2020 12:36:37 05/11/19 21 05/10/2020 urina lysis panel , auto Unknown Analyte Negati ve Not Available [facility] [address], [place], [address], 05/10/2020 12:36:37 05/11/19 21 05/10/2020 urina lysis panel , auto Unknown Analyte Negati ve Not Available [facility] [address], [place], [address], 05/10/2020 12:36:37 05/11/19 21 05/10/2020 urina lysis panel , auto Unknown Analyte Negati ve Not Available [facility] [address], [place], [address], 05/10/2020 12:36:37 05/11/19 21 05/10/2020 urina lysis panel , auto Unknown Analyte Normal Not Available [facility] [address], [place], [address], 05/10/2020 12:36:37 05/11/19 21 05/10/2020 urina lysis panel , auto Unknown Analyte Normal Not Available [facility] [address], [place], [address], 05/10/2020 12:36:37 05/11/19 21 05/10/2020 urina lysis panel , auto Unknown Analyte Negati ve Not Available [facility] [address], [place], [address], 05/10/2020 12:36:37 05/11/19 21 05/10/2020 urina lysis panel , auto Unknown Analyte Negati ve Not Available Replaced by [facility] [place] [facility] [address], [place], [address], 05/10/2020 12:36:37 05/11/19 21 05/10/2020 urina lysis panel , auto Unknown Analyte Normal Not Available [facility] [facility] [address], [place], [address], 05/10/2020 12:36:37 05/11/19 21 05/10/2020 urina lysis panel , auto Unknown Analyte Normal 1 mg/dl Not Available Replaced by [facility] [place] [facility] [address], [place], [address], 05/10/2020 12:36:37 05/11/19 21 05/10/2020 urina lysis panel , auto Unknown Analyte Negati ve Not Available Replaced by [facility] [place] [facility] [address], [place], [address], 05/10/2020 12:36:37 05/11/19 21 05/10/2020 urina lysis panel , auto Unknown Analyte Negati ve Not Available Replaced by [facility] [facility] [address], [place], [address], 05/10/2020 12:36:37 05/11/19 21 05/10/2020 urina lysis panel , auto Unknown Analyte Negati ve Not Available Replaced by [facility] [facility] [address], [place], [address], 05/10/2020 12:36:37 05/11/19 21 05/10/2020 urina lysis panel , auto Unknown Analyte Negati ve Not Available Replaced by [facility] [address], [place], [address], 05/10/2020 12:36:37 02/09/2002/09/2020 urina lysis panel , auto Unknown Analyte Clean Catch Not Available [facility] [address], [place], [address], 02/09/2020 13:09:05 02/09/2002/09/2020 urina lysis panel , auto Unknown Analyte Yellow Not Available [facility] [address], [place], [address], 02/09/2020 13:09:05 02/09/2002/09/2020 urina lysis panel , auto Unknown Analyte Clear Not Available [facility] [address], [place], [address], 02/09/2020 13:09:05 02/09/2002/09/2020 urina lysis panel , auto Unknown Analyte 1.025 Not Available [facility] [address], [place], [address], 02/09/2020 13:09:05 02/09/2002/09/2020 urina lysis panel , auto Unknown Analyte 1.003- 1.035 Not Available [facility] [address], [place], [address], 02/09/2020 13:09:05 02/09/2002/09/2020 urina lysis panel , auto Unknown Analyte 6.0 Not Available [facility] [address], [place], [address], 02/09/2020 13:09:05 02/09/2002/09/2020 urina lysis panel , auto Unknown Analyte 5.0-8. 0 Not Available Replaced by [facility] [place] [facility] [address], [place], [address], 02/09/2020 13:09:05 02/09/2002/09/2020 urina lysis panel , auto Unknown Analyte 500 Darren/ul (++) Not Available [facility] [address], [place], [address], 02/09/2020 13:09:05 02/09/2002/09/2020 urina lysis panel , auto Unknown Analyte Negati ve Not Available Replaced by [facility] [facility] [address], [place], [address], 02/09/2020 13:09:05 02/09/2002/09/2020 urina lysis panel , auto Unknown Analyte Negati ve Not Available Replaced by [facility] [address], [place], [address], 02/09/2020 13:09:05 02/09/2002/09/2020 urina lysis panel , auto Unknown Analyte Negati ve Not Available Replaced by [facility] [facility] [address], [place], [address], 02/09/2020 13:09:05 02/09/2002/09/2020 urina lysis panel , auto Unknown Analyte Negati ve Not Available Replaced by [facility] [address], [place], [address], 02/09/2020 13:09:05 02/09/20 20 02/09/2020 urina lysis panel , auto Unknown Analyte Negati ve Not Available [facility] [address], [place], [address], 02/09/2020 13:09:05 02/09/2002/09/2020 urina lysis panel , auto Unknown Analyte Normal Not Available [facility] [address], [place], [address], 02/09/2020 13:09:05 02/09/2002/09/2020 urina lysis panel , auto Unknown Analyte Normal Not Available [facility] [address], [place], [address], 02/09/2020 13:09:05 02/09/2002/09/2020 urina lysis panel , auto Unknown Analyte Negati ve Not Available [facility] [address], [place], [address], 02/09/2020 13:09:05 02/09/2002/09/2020 urina lysis panel , auto Unknown Analyte Negati ve Not Available [facility] [address], [place], [address], 02/09/2020 13:09:05 02/09/2002/09/2020 urina lysis panel , auto Unknown Analyte 1 mg/dl Not Available Replaced by [facility] [facility] [address], [place], [address], 02/09/2020 13:09:05 02/09/20 20 02/09/2020 urina lysis panel , auto Unknown Analyte Normal 1 mg/dl Not Available [facility] [address], [place], [address], 02/09/2020 13:09:05 02/09/20 20 02/09/2020 urina lysis panel , auto Unknown Analyte 1 mg/dl (+) Not Available [facility] [address], [place], [address], 02/09/2020 13:09:05 02/09/2002/09/2020 urina lysis panel , auto Unknown Analyte Negati ve Not Available [facility] [address], [place], [address], 02/09/2020 13:09:05 02/09/20 20 02/09/2020 urina lysis panel , auto Unknown Analyte Negati ve Not Available [facility] [address], [place], [address], 02/09/2020 13:09:05 02/09/20 20 02/09/2020 urina lysis panel , auto Unknown Analyte Negati ve Not Available [facility] [address], [place], [address], 02/09/2020 13:09:05 05/12/19 20 05/12/2019 urina lysis , dipst ick, auto Unknown Analyte Yellow Not Available [facility] [address], [place], [address], 05/12/2019 14:39:25 05/12/192020 urina lysis , dipst ick, auto Unknown Analyte Clear Not Available [facility] [address], [place], [address], 05/12/2019 14:39:25 05/12/19 20 05/12/2019 urina lysis , dipst ick, auto Unknown Analyte 1.025 Not Available [facility] [address], [place], [address], 05/12/2019 14:39:25 05/12/19 20 05/12/2019 urina lysis , dipst ick, auto Unknown Analyte 1.003 - 1.035 Not Available [facility] [place] [address], [place], [address], 05/12/2019 14:39:25 05/12/19 20 05/12/2019 urina lysis , dipst ick, auto Unknown Analyte 5.0 Not Available [facility] [address], [place], [address], 05/12/2019 14:39:25 05/12/19 20 05/12/2019 urina lysis , dipst ick, auto Unknown Analyte 5.0 - 8.0 Not Available [facility] [address], [place], [address], 05/12/2019 14:39:25 05/12/19 20 05/12/2019 urina lysis , dipst ick, auto Unknown Analyte Negati ve Not Available Replaced by [facility] [facility] [address], [place], [address], 05/12/2019 14:39:25 05/12/19 20 05/12/2019 urina lysis , dipst ick, auto Unknown Analyte Negati ve Not Available Replaced by [facility] [address], [place], [address], 05/12/2019 14:39:25 05/12/19 20 05/12/2019 urina lysis , dipst ick, auto Unknown Analyte Negati ve Not Available Replaced by [facility] [address], [place], [address], 05/12/2019 14:39:25 05/12/19 20 05/12/2019 urina lysis , dipst ick, auto Unknown Analyte Negati ve Not Available Replaced by [facility] [address], [place], [address], 05/12/2019 14:39:25 05/12/19 20 05/12/2019 urina lysis , dipst ick, auto Unknown Analyte Negtiv e Not Available [facility] [address], [place], [address], 05/12/2019 14:39:25 05/12/19 20 05/12/2019 urina lysis , dipst ick, auto Unknown Analyte Negati ve - Trace Not Available Replaced by [facility] [address], [place], [address], 05/12/2019 14:39:25 05/12/19 20 05/12/2019 urina lysis , dipst ick, auto Unknown Analyte Normal Not Available [facility] [address], [place], [address], 05/12/2019 14:39:25 05/12/19 20 05/12/2019 urina lysis , dipst ick, auto Unknown Analyte Normal Not Available [facility] [address], [place], [address], 05/12/2019 14:39:25 05/12/19 20 05/12/2019 urina lysis , dipst ick, auto Unknown Analyte Negati ve Not Available [facility] [address], [place], [address], 05/12/2019 14:39:25 05/12/19 20 05/12/2019 urina lysis , dipst ick, auto Unknown Analyte Negati ve Not Available [facility] [address], [place], [address], 05/12/2019 14:39:25 05/12/19 20 05/12/2019 urina lysis , dipst ick, auto Unknown Analyte Normal Not Available [facility] [address], [place], [address], 05/12/2019 14:39:25 05/12/19 20 05/12/2019 urina lysis , dipst ick, auto Unknown Analyte Normal - 1mg/dl Not Available [facility] [address], [place], [address], 05/12/2019 14:39:25 05/12/19 20 05/12/2019 urina lysis , dipst ick, auto Unknown Analyte Negati ve Not Available [facility] [address], [place], [address], 05/12/2019 14:39:25 05/12/19 20 05/12/2019 urina lysis , dipst ick, auto Unknown Analyte Negati ve Not Available Replaced by [facility] [address], [place], [address], 05/12/2019 14:39:25 05/12/19 20 05/12/2019 urina lysis , dipst ick, auto Unknown Analyte Negati ve Not Available Replaced by [facility] [address], [place], [address], 05/12/2019 14:39:25 05/12/19 20 05/12/2019 urina lysis , dipst ick, auto Unknown Analyte Negati ve Not Available Replaced by [facility] [address], [place], [address], 05/12/2019 14:39:25 05/12/19 20 05/12/2019 urina lysis , dipst ick, auto Unknown Analyte Clean Catch Not Available Replaced by [facility] [address], [place], [address], 05/12/2019 14:39:25 05/12/19 20 05/12/2019 urina lysis , dipst ick, auto Unknown Analyte Automa fredrick Not Available Replaced by [facility] [address], [place], [address], 05/12/2019 14:39:25 04/17/19 20 04/17/2019 urina lysis , dipst ick, auto Unknown Analyte Yellow Not Available [facility] [address], [place], [address], 04/17/2019 14:40:12 04/17/19 20 04/17/2019 urina lysis , dipst ick, auto Unknown Analyte Clear Not Available [facility] [address], [place], [address], 04/17/2019 14:40:12 04/17/19 20 04/17/2019 urina lysis , dipst ick, auto Unknown Analyte 1.025 Not Available [facility] [address], [place], [address], 04/17/2019 14:40:12 04/17/19 20 04/17/2019 urina lysis , dipst ick, auto Unknown Analyte 5.0 Not Available [facility] [address] [facility] [address], [place], [address], 04/17/2019 14:40:12 04/17/19 20 04/17/2019 urina lysis , dipst ick, auto Unknown Analyte 5.0 - 8.0 Not Available [facility] [address], [place], [address], 04/17/2019 14:40:12 04/17/19 20 04/17/2019 urina lysis , dipst ick, auto Unknown Analyte Negati ve Not Available [facility] [address] [facility] [address], [place], [address], 04/17/2019 14:40:12 04/17/19 20 04/17/2019 urina lysis , dipst ick, auto Unknown Analyte Negati ve Not Available [facility] [address] [facility] [address], [place], [address], 04/17/2019 14:40:12 04/17/19 20 04/17/2019 urina lysis , dipst ick, auto Unknown Analyte Negati ve Not Available Replaced by [facility] [address], [place], [address], 04/17/2019 14:40:12 04/17/19 20 04/17/2019 urina lysis , dipst ick, auto Unknown Analyte Negati ve Not Available [facility] [address], [place], [address], 04/17/2019 14:40:12 04/17/19 20 04/17/2019 urina lysis , dipst ick, auto Unknown Analyte Negtiv e Not Available [facility] [address], [place], [address], 04/17/2019 14:40:12 04/17/19 20 04/17/2019 urina lysis , dipst ick, auto Unknown Analyte Negati ve - Trace Not Available [facility] [address], [place], [address], 04/17/2019 14:40:12 04/17/19 20 04/17/2019 urina lysis , dipst ick, auto Unknown Analyte Normal Not Available [facility] [address], [place], [address], 04/17/2019 14:40:12 04/17/19 20 04/17/2019 urina lysis , dipst ick, auto Unknown Analyte Normal Not Available [facility] [address], [place], [address], 04/17/2019 14:40:12 04/17/19 20 04/17/2019 urina lysis , dipst ick, auto Unknown Analyte Negati ve Not Available [facility] [address], [place], [address], 04/17/2019 14:40:12 04/17/19 20 04/17/2019 urina lysis , dipst ick, auto Unknown Analyte Negati ve Not Available [facility] [address], [place], [address], 04/17/2019 14:40:12 04/17/19 20 04/17/2019 urina lysis , dipst ick, auto Unknown Analyte Normal Not Available [facility] [address], [place], [address], 04/17/2019 14:40:12 04/17/19 20 04/17/2019 urina lysis , dipst ick, auto Unknown Analyte Normal - 1mg/dl Not Available [facility] [address], [place], [address], 04/17/2019 14:40:12 04/17/19 20 04/17/2019 urina lysis , dipst ick, auto Unknown Analyte Negati ve Not Available [facility] [address], [place], [address], 04/17/2019 14:40:12 04/17/19 20 04/17/2019 urina lysis , dipst ick, auto Unknown Analyte Negati ve Not Available [facility] [address], [place], [address], 04/17/2019 14:40:12 04/17/19 20 04/17/2019 urina lysis , dipst ick, auto Unknown Analyte Negati ve Not Available [facility] [address] [facility] [address], [place], [address], 04/17/2019 14:40:12 04/17/19 20 04/17/2019 urina lysis , dipst ick, auto Unknown Analyte Negati ve Not Available [facility] [address] [facility] [address], [place], [address], 04/17/2019 14:40:12 04/17/19 20 04/17/2019 urina lysis , dipst ick, auto Unknown Analyte Clean Catch Not Available [facility] [address] [facility] [address], [place], [address], 04/17/2019 14:40:12 04/17/19 20 04/17/2019 urina lysis , dipst ick, auto Unknown Analyte Automa fredrick Not Available [facility] [address] [facility] [address], [place], [address], 04/17/2019 14:40:12 04/17/19 20 04/17/2019 cultu re, urine results Sourc e: CCUR Colle cted: 04/17 17:24 Site: Recei miguelito : 04/17 20:02 URINE SCREE N(CUL TURE) FINAL 04/19 09:28 04/19 COLON Y COUNT : 10,00 0 - 100,0 00 CFU/M L Three or more isola amaury; mixed skin kamala . Not Available [facility] [address] [facility], [place], [address], 04/19/2019 09:28:01 02/09/20 20 02/09/2020 cultu re, urine results Sourc e: CCUR Colle cted: 02/08 17:22 Site: Vianney miguelito : 02/08 20:08 URINE CULTU RE FINAL 02/10 14:22 02/10 ISOLA TE #1 COLON Y COUNT : > 100,0 00 CFU/M L Minut e alpha colon y. Not Available [facility] [address] [place], [address], 02/11/2020 14:22:52 01/13/20 20 01/13/2020 XR, chest , 2 view No observ ation record ed. [facility] ([facility] [address] [place], [address], 01/14/2020 07:19:11 01/13/20 20 01/13/2020 XR, chest , 2 view No observ ation record ed. [email or web address] Not Available 2019 08:48:04 Result Notes None recorded. 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 Procedures Surgical History Date Name Laterality Status Provider Name and Address Organization Details Recorded Time 01/20/20 20 LAPAROSCOPIC SACROCOLPOPEXY (SURG) completed Isael Caicedo [facility] 01/21/2020 09:39:19 04/23/19 20 Uroflowmetry; Complex completed Maria R Arce [facility] 04/24/2019 08:46:49 04/23/19 Urodynamics Interpretation completed VANE QUINTANA JR, MD [address] [place] [address], [address], [facility] 04/26/2019 08:55:11 04/23/19 20 Urodynamics completed Maria R Arce [facility] 04/24/2019 08:50:10 04/17/19 20 Post Void Residual; Ultrasound completed [facility] 04/17/2019 14:44:54 Tonsillectomy completed [facility] 04/17/2019 14:36:39 biopsy of breast completed [facility] 04/17/2019 14:36:52 Cholecystectomy completed [facility] 04/17/2019 14:37:23 Ferriday Teeth Extraction completed [facility] 04/17/2019 14:37:39 Appendectomy completed [facility] 04/17/2019 14:38:02 Imaging Results None recorded. Procedure [...] Updated DateTime 04/17/2019 167.64 cm 30.7 kg/m2 50633.55 g [facility] 04/17/2019 14:21:47 Date Recorded Body height Body mass index (BMI) Body weight Provider Name and Address Organization Details Last Updated DateTime 04/23/2019 167.64 cm 30.7 kg/m2 31562.55 g Maria R Arce [facility] 04/24/2019 08:45:40 Date Recorded Body height Body mass index (BMI) Body weight Provider Name and Address Organization Details Last Updated DateTime 05/10/2020 167.64 cm 30.7 kg/m2 46066.55 g Amanda Meek [facility] 05/10/2020 12:35:57 Date Recorded Body height Body mass index (BMI) Body weight Provider Name and Address Organization Details Last Updated DateTime 05/12/2019 167.64 cm 30.7 kg/m2 60242.55 g Amanda Meek [facility] 05/12/2019 14:38:55 Date Recorded Body height Body mass index (BMI) Body weight Body temperature Provider Name and Address Organization Details Last Updated DateTime 02/09/2020 167.64 cm 30.7 kg/m2 61011.55 g 97.2 [degF] Deseriee [place] [facility] 02/09/2020 12:47:09 Social History Question Answer Notes LastModified by [employer] Details LastModified Time Tobacco Smoking Status Never Smoker Amanda Meek [facility] 04/17/2019 14:22:26 How Much Tobacco Do You Chew? None Information not available 04/17/2019 Marital Status [email or web address] Informatio n not available 04/17/2019 Sex: Unknown Functional Status Question Answer Note LastModified by [employer] Details LastModified Time What is your level of alcohol consumption? None Information not available 04/17/2019 Do you or have you ever used e-cigarettes or vape? Never used electronic cigarettes [facility] Information not available 04/17/2019 Mental Status None recorded. Family History Relationship Description Onset Age of this Age Resolved Age Notes LastModified by Organization Details LastModified Time Mother Diabetes mellitus Not available 2019 14:22:11 Father Family history of malignant neoplasm Not available 2019 14:22:18 Medical History Condition Response Heart Disease Y Arthritis Y Gynecological HistoryNo gynecological history recorded. Obstetrics History GPAL:G 0 P 0 0 0 0 Past Encounters Encounter ID Performer Location Encounter Start Date Encounter Closed Date Diagnosis/Indication Diagnosis SNOMED-CT Code Diagnosis ICD10 Code Diagnosis Note [id number] MD JULIEN VILLALOBOS JR, [facility] [address] [facility] [place] [id number] 04/17/2019 13:44:23 04/17/2019 16:37:55 Urinary tract infectious disease 40979166 N39.0 Vaginal va ult prolapse 458679975 N81.89 Mixed urin eun incontinence 954543988 N39.46 [id number] MD JULIEN VILLALOBOS JR, [facility] [address] [place] [address] 04/23/2019 14:16:58 04/23/2019 15:34:03 Mixed urinary incontinence 010449886 N39.46 [id number] VANE QUINTANA JR, MD [facility] [address] [facility] [address] [place] [address] 05/12/2019 14:01:10 05/19/2019 12:56:42 Vaginal vault prolapse 296811017 N81.89 Mixed urin eun incontinence 153810738 N39.[address] incontinence 00177304 N39.3 [id number] VANE QUINTANA JR, MD [facility] [address] [facility] [address] [place] [address] 02/09/2020 12:43:24 02/11/2020 16:48:37 Urinary tract infectious disease 56142504 N39.0 Vaginal va ult prolapse 167964386 N81.89 Mixed urin eun incontinence 076809526 N39.46 [id number] VANE QUINTANA JR, MD [facility] [address] [facility] [address] [place] [address] 05/10/2020 12:33:58 05/13/2020 08:45:43 Vaginal vault prolapse 031417033 N81.89 Mixed urin eun incontinence 238379276 N39.46 Health Concerns Section Related Observation LastModified by Organization Detai ls LastModified Time None Recorded Concern Status LastModified by Organization Details LastModified Time None Recorded Advance Directives Directive None Recorded Payers Insurance Date Sequence Insurance Name Policy Number Policy Case Covered Member ID Case Member ID Guarantor Name 05/10/2020 1 [facility] [place] [id number] Aaliyah Lanier [id number] Aaliyah Lanier 05/10/2020 2 [place] Aaliyah Lanier [id number] Aaliyah Lanier Notes Date Note Type [...] for pelvic prolapse. VANE QUINTANA JR, MD [address] [place] [address], [address], [facility] 04/20/2019 14:22:35 05/12/2019 text/html Patient is in [...] adequate detrusor function. VANE QUINTANA JR, MD [facility] [place], [address], [facility] 05/15/2019 07:25:52 02/09/2020 text/html Patient is in today for follow-up of vaginal prolapse stress incontinence. She underwent robotic-assisted laparoscopic sacral colpopexy, right ureteral lysis, and suburethral sling January 20, 2020. She is recovered uneventfully. Stress incontinence is resolved. She does not have recurrent prolapse. She is quite pleased with the outcome of surgery. VANE QUINTANA JR, MD [facility] [place], [address], [facility] 02/16/2020 07:33:08 05/10/2020 text/html Patient is in today for follow-up of vaginal prolapse stress incontinence. She underwent robotic-assisted laparoscopic sacral colpopexy, right ureteral lysis, and suburethral sling January 20, 2020. She is recovered uneventfully. Stress incontinence is resolved. She does not have recurrent prolapse. She is quite pleased with the outcome of surgery. VANE QUINTANA JR, MD [address] [place], [address], [facility] 05/10/2020 13:29:07 OBGyn Episode No OBEpisode recorded.
--- OUTSIDE RECORDS SUMMARY | 2024-09-01 15:05 | XMS_ITS | Encounter Summary ---
Author Organization [employer] Address [address] [place] [address] Care Team Providers Care Marking Clerk Name Role Phone Unavailable Primary Care Provider Unavailabl e Encounter Details Date Type Department Care Team (Late st Contact Info) Description 01/21/2020 Transcribed Document [facility] [place] [address] ProviderAntonia MD [address] [place], [place] [phone] Social History Tobacco Use Types Packs/Day Years [...] - Antonia ProviderMD - 01/21/2020 2:00 AM THERMAL CUTTING TRACER MACHINE OPERATOR Lunchroom Food Service Supervisor Details Entered On: 01/21/2020 4:28 EST Performed [...]
--- OUTSIDE RECORDS SUMMARY | 2024-09-01 15:05 | XMS_ITS | Encounter Summary ---
Author Organization [employer] Address [address] [place] [address] Care Team Providers Care Senior Accounts Payable Specialist Name Role Phone Unavailable Primary Care Provider Unavailabl e Encounter Details Date Type Department Care Team (Late st Contact Info) Description 01/13/2020 Transcribed Document [facility] Medicine [facility] [place] [address] ProviderAntonia MD [facility] [place], [place] [id number] Social History Tobacco Use Types Packs/Day Years [...] - Antonia ProviderMD - 01/13/2020 11:00 AM RENEWABLE ENERGY PROJECT MANAGER Patient: JORGE LANIER Age: 74 Years Sex: [...] Proceed with surgery as scheduled with Dr Muirllo on 01/20/2020. 3. Hyperlipidemia- Continue Simvastatin. 4. [...] 01/13/2020 12:03 EST Electronically signed by Tracie, [facility] Conversion Telephone Services Sales Representative [employer] at 06/29/2022 12:18 PM CDT documented in this encounter Plan of Treatment Not on file documented as of this encounter Visit Diagnoses Not on filedocumented in this encounter
--- OUTSIDE RECORDS SUMMARY | 2024-09-01 15:05 | XMS_ITS | Encounter Summary ---
Author Organization [employer] Address [address] [place] [address] Care Team Providers Care Shipping And Receiving Material Handler Name Role Phone Unavailable Primary Care Provider Unavailabl e Encounter Details Date Type Department Care Team (Late st Contact Info) Description 01/20/2020 Transcribed Document [facility] [place] [address] ProviderAntonia MD [address] [place], [place] [address] Social History Tobacco Use Types Packs/Day Years [...] - Antonia ProviderMD - 01/20/2020 11:35 AM OPERATOR COATING FURNACE Time Out Documentation Entered On: 01/20/2020 11:53 EST Performed On: 01/20/2020 11:35 EST by MANAV CROSS, RN Time Out Documentation Procedure to be Performed : bilateral tap MANAV CROSS, RN - 01/20/2020 11:52 EST documented in this encounter Plan of Treatment Not on file documented as of this encounter Visit Diagnoses Not on filedocumented in this encounter
--- OUTSIDE RECORDS SUMMARY | 2024-09-01 15:05 | XMS_ITS | Patient Health Record ---
Author Organization [facility] Address [address] [facility] [address] [place] [id number] Care Team Providers Care Identification Officer Name Role Phone Gera Remy Primary Care Provider [phone] Parviz Friend Unavailable [phone] Becky Amador Unavailable [phone] Allergies Allergen (clinical drug ingredient) Drug/Non Drug [...] 10-12.5 MG 1 tab po qd Not-Taking Wiqytivai-Zjgwgojy-LB 30-1-20 MG/5ML 5-10 ml Orally every 6 [...] Problem Status W/U Status Risk Notes Problem 54704379 Essential hypertension (I10) Active confirmed Problem Abnormal findings on diagnostic imaging of breast (273883277) Other abnormal and inconclusive findings on diagnostic imaging of breast (R92.8) Active confirmed Problem 412834700 Generalized osteoarthritis (M15.9) Active confirmed Problem 074902489 Cervical disc disease (M50.90) Active confirmed Problem 797466650 Multinodular goiter (E04.2) Active confirmed Problem 031468078 Menopausal syndrome (N95.1) Active confirmed Problem 073099718 Dyslipidemia (E78.5) Active confirmed Problem Menopause (282421124) Post menopausal syndrome (N95.1) Active confirmed Vital Signs Heart Rate 90 /min 07/01/2024 Blood pressure diastolic 76 mm Hg 07/01/2024 Height 65.5 in 07/01/2024 Blood pressure systolic 120 mm Hg 07/01/2024 Weight 182.8 lbs 07/01/2024 BMI 29.95 kg/m2 07/01/2024 Encounters Encounter Location Date Provider Diagnosis [facility] [address] [place], [place] [id number] 10/22/2023 Becky Amador Gastroenteritis K52. 9 [facility] [address] [place], [place] [id number] 03/01/2024 Parviz Ewing Cough, unspecified t ype R05.9 [facility] [address] [place], [place] [id number] 07/01/2024 Gera Remy Acute bronchitis J20 .9 ; Scalp contusion S00.03XA ; Generalized osteoarthritis M15.9 and BMI 29.0-29.9,adult Z68.29 [facility] [address] [place], [place] [id number] 07/02/2024 Gera Remy Assessments Encounter Date Diagnosis [...] [address], [place], [place], [phone], Insurance Providers Payer Name Payer Address Payer Phone Subscriber Number Group Number Insured Name Patient Relationship to Insured Coverage Start Date Coverage End Date [employer] [address] [place] [address] [id number] JORGE LANIER Self - patient is the insured MEDICARE PART B [address] [address] [place] [address] [id number] JORGE LANIER Self - patient is the [...] normal coronaries/ Dr Alesha fields 02/2017 colonoscopy-Dr Panad 09/2019 Dr. Murillo- bladder sling 01/20/2020 Total Knee Replacement of the Right Knee - Dr. Tommy Velarde 03/30/2022 Lymph Node Biopsy 02/2023 Hospitalization History Reason Date(Month/Year) see above
--- OUTSIDE RECORDS SUMMARY | 2024-09-01 15:05 | XMS_ITS | Encounter Summary ---
Author Organization [email or web address] Address [address] [place] [address] Care Team Providers Care It Coordinator Name Role Phone Unavailable Primary Care Provider Unavailabl e Encounter Details Date Type Department Care Team (Late st Contact Info) Description 01/20/2020 Transcribed Document [facility] [place] Family Medicine [facility] [place] [address] ProviderAntonia MD [address] [place] [address] Social History Tobacco Use Types [...] - Antonia ProviderMD - 01/20/2020 12:38 PM RESERVOIR ENGINEERING CONSULTANT WANG Main OR PreOp Summary Primary Physician: VANE QUINTANA JR, MD-URO Finalized Date/Time: 01/21/20 07:39:24 Pt. Name: JORGE BEATTY /Sex: 1945 Female Med Rec #: [id number] Physician: VANE QUINTANA JR, MD-URO Financial #: [id number] Pt. Type: O Room/Bed: 425/1 Admit/Disch: 01/20/20 03:50:00 - Institution: [facility] PreOp Case Times Entry 1 In Preop 01/20/20 09:30:00 Ready for Holding n/a Room Patient Ready for 01/20/20 11:15:00 Surgery Patient Out of Preop 01/20/20 12:16:00 Patient Out of n/a Holding Room Last Modified By: Albania Delgado, Manager Diabetes-Nursing 01/20/20 12:38:43 SJGrace PreOp Case Times Audit 01/20/20 12:38:43 Inventory Control Analyst: [id number] Modifier: [id number] <+> 1 Patient Out of Preop Finalized By: Albania Delgado, Manager Diabetes-Nursing Document Signatures Signed By: Albania Delgado, Manager Diabetes-Nursing 01/20/20 12:38 Albania Delgado, Manager Diabetes-Nursing 01/21/20 07:39 Unfinalized History Date/Time Username Reason for Unfinalizing Freetext Reason for Unfinalizing 01/21/20 07:39 [id number] Modify Pick List Electronically signed by Roberto Hodges Conversion Compressor Station Chief Engineer [employer] at 06/29/2022 12:29 PM CDT documented in this encounter Plan of Treatment Not on file documented as of this encounter Visit Diagnoses Not on filedocumented in this encounter
--- OUTSIDE RECORDS SUMMARY | 2024-09-01 15:06 | XMS_ITS | Encounter Summary ---
Author Organization [employer] Address [address] [place] [address] Care Team Providers Care Straight Knife Cutter Machine Name Role Phone Unavailable Primary Care Provider Unavailabl e Encounter Details Date Type Department Care Team (Late st Contact Info) Description 01/21/2020 Transcribed Document [facility] Family Medicine [facility] [place] [address] ProviderAntonia MD [address] [place], [place] [phone] Social History Tobacco Use Types Packs/Day Years [...] Antonia Gordon MD - 01/21/2020 7:01 AM COPIER FIELD SERVICE TECHNICIAN Patient: JORGE BEATTY Age: 74 years Sex: [...]
--- OUTSIDE RECORDS SUMMARY | 2024-09-01 15:06 | XMS_ITS | Encounter Summary ---
Author Organization [employer] Address [address] [place] [address] Care Team Providers Care Title Checker Name Role Phone Unavailable Primary Care Provider Unavailabl e Encounter Details Date Type Department Care Team (Late st Contact Info) Description 01/20/2020 Transcribed Document [facility] [place] [facility] [place] [address] ProviderAntonia MD [facility] [place] [address] Social History Tobacco Use Types [...] - Antonia ProviderMD - 01/20/2020 4:56 PM COORDINATOR OF GENETIC SERVICES Patient Education Materials Follows:and Gynecology Anterior and [...] including vitamins, herbs, eye drops, creams, and wdyw-mrl-mcqqatm medicines. ??? Any problems you or family [...] 02/26/2017 Document Revised: 02/08/2018 Document Reviewed: 02/26/2017 Peatix Patient Education ? 2020 [employer]. Sacrocolpopexy Sacrocolpopexy is a surgical procedure that [...] including vitamins, herbs, eye drops, creams, and wnaf-ljm-norxhnd medicines. ??? Any problems you or family [...] diabetes medicines or blood thinners. ? Taking eicn-yzb-gdjbjzz medicines, vitamins, herbs, and supplements. ? Taking [...] 03/03/2014 Document Revised: 02/08/2018 Document Reviewed: 05/24/2017 Peatix Patient Education ? 2020 [employer]. documented in this encounter Plan of Treatment Not on file documented as of this encounter Visit Diagnoses Not on filedocumented in this encounter
--- OUTSIDE RECORDS SUMMARY | 2024-09-01 15:06 | XMS_ITS | Encounter Summary ---
Author Organization [employer] Address [address] [place] [address] Care Team Providers Care Car Pick Up Driver Name Role Phone Unavailable Primary Care Provider Unavailabl e Encounter Details Date Type Department Care Team (Late st Contact Info) Description 01/20/2020 Transcribed Document [facility] [place] [facility] [address] ProviderAntonia MD [address] [place] [address] Social History Tobacco Use Types [...] - Antonia ProviderMD - 01/20/2020 12:38 PM TILE PICKER E Main OR PACU Summary Primary Physician: VANE QUINTANA JR, MD-URO Finalized Date/Time: 01/20/20 15:59:45 Pt. Name: JORGE BEATTY /Sex: 1945 Female Med Rec #: [id number] Physician: VANE QUINTANA JR, MD-URO Financial #: [id number] Pt. Type: O Room/Bed: Admit/Disch: 01/20/20 03:50:00 - [place] [facility] [place] Case Times Entry 1 In PACU I 01/20/20 14:13:00 Ready for PACU 01/20/20 14:43:00 Discharge Discharge from PACU 01/20/20 15:45:00 I Last Modified By: CHAY Cohen 01/20/20 14:19:23 [facility] Main OR PACU Case Times Audit 01/20/20 15:45:35 Records Management Clerk: JACEK Modifier: JACEK <+> 1 Discharge from PACU I [facility] Main OR PACU Acuity Entry 1 Start Time 01/20/20 14:44:00 Stop Time 01/20/20 15:45:00 Acuity Level [facility] PACU Acuity I Last Modified By: CHAY Cohen 01/20/20 15:59:38 Finalized By: CHAY Cohen Document Signatures Signed By: CHAY Cohen 01/20/20 15:59 documented in this encounter Plan of Treatment Not on file documented as of this encounter Visit Diagnoses Not on filedocumented in this encounter
--- OUTSIDE RECORDS SUMMARY | 2024-09-01 15:06 | XMS_ITS | Encounter Summary ---
Author Organization [employer] Address [address] [place] [address] Care Team Providers Care Export Freight Manager Name Role Phone Unavailable Primary Care Provider Unavailabl e Encounter Details Date Type Department Care Team (Late st Contact Info) Description 01/20/2020 Transcribed Document [facility] [place] [address] ProviderAntonia MD [address] [place] [id number] Social History Tobacco Use Types Packs/Day Years [...] - Antonia ProviderMD - 01/20/2020 11:35 AM TOGGLER Peripheral Nerve Block Entered On: 01/20/2020 12:06 [...] 01/20/2020 12:05 EST Electronically signed by Tracie, [facility] Conversion Race Steward Cerner at 06/29/2022 12:23 PM CDT documented in this encounter Plan of Treatment Not on file documented as of this encounter Visit Diagnoses Not on filedocumented in this encounter
--- OUTSIDE RECORDS SUMMARY | 2024-09-01 15:06 | XMS_ITS | Encounter Summary ---
Author Organization [employer] Address [address] [place] [address] Care Team Providers Care Supervisor Refractory Products Name Role Phone Unavailable Primary Care Provider Unavailabl e Encounter Details Date Type Department Care Team (Late st Contact Info) Description 01/20/2020 Transcribed Document [facility] [place] Family Medicine [facility] [place] [address] ProviderAntonia MD [address] [place], [place] [phone] Social History Tobacco Use Types Packs/Day Years [...] - Antonia ProviderMD - 01/20/2020 4:56 PM TRACKMOBILE OPERATOR Stroke/Warfarin Instructions Entered On: 01/20/2020 16:56 EST [...]
--- OUTSIDE RECORDS SUMMARY | 2024-09-01 15:06 | XMS_ITS | Encounter Summary ---
Author Organization [employer] Address [address] [place] [address] Care Team Providers Care Frontend Engineer Name Role Phone Unavailable Primary Care Provider Unavailabl e Encounter Details Date Type Department Care Team (Late st Contact Info) Description 01/20/2020 Transcribed Document [facility] [place] Medicine [facility] [place] [address] ProviderAntonia MD [facility] [place] [address] Social History Tobacco Use Types [...] Antonia Gordon MD - 01/20/2020 6:50 PM STRIPPER BLACK AND WHITE Patient: JORGE LANIER Age: 74 years Sex: [...] Gram, Oral, Daily, 255 Gram, 0 Refill(s) [place] 7.5 mg-325 mg oral tablet: 1 Tab, [...] Vitamins oral tablet 1 Tab, Oral, Daily [place] 7.5 mg-325 mg oral tablet 1 Tab, PRN, Oral, Q4H simvastatin 40 mg, Oral, At Bedtime Problem list: Medical At risk for sleep apnea / IMO 07120908 / Confirmed Hormone replacement therapy / SNOMED CT 1689188087 / Confirmed High cholesterol / SNOMED CT 37986759 / Confirmed HTN (hypertension) / SNOMED CT 7541265548 / Confirmed, Active Problems (4) At risk for sleep apnea High cholesterol Hormone replacement therapy HTN (hypertension) Histories Past Medical History: No active or resolved past medical history items have been selected or recorded., High cholestero,l Hormone replacement therapy, HTN (hypertension) Family History: No family history items have been selected or recorded., CAD, Procedure history: skin cancer removed 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 Tonsillectomy (654269626). Hysterectomy (035836677). Lumpectomy of breast (6074344513). heart cath. Appendectomy (817633380). spinal surgery with plate. Colonoscopy (499505630). Social History Social & Psychosocial Habits Alcohol 01/13/2020 Alcohol Use History, Social Habits No Substance Abuse 01/13/2020 Recreational Drug Use History No Tobacco 01/13/2020 Smoking Status Never (less than 100 in l Smokeless Tobacco Status Never . nonsmoker, no etoh, lives in [place] w/ her . Physical Examination VS/Measurements Vitals [...]
--- OUTSIDE RECORDS SUMMARY | 2024-09-01 15:06 | XMS_ITS | Encounter Summary ---
Author Organization [employer] Address [address] [place] [address] Care Team Providers Care Slip Filler Name Role Phone Unavailable Primary Care Provider Unavailabl e Encounter Details Date Type Department Care Team (Late st Contact Info) Description 01/21/2020 Transcribed Document [facility] [place] [facility] [place] [address] ProviderAntonia MD [facility] [place] [address] Social History Tobacco Use Types [...] Antonia Gordon MD - 01/21/2020 10:17 AM GUM [place] [address] JORGE BEATTY :1945 Visit Time:01/20/2020 Your Visit Summary Your Care Team Admitting Physician - VANE QUINTANA JR, MD-URO Attending Physician - VANE QUINTANA JR, MD-URO Primary Care Physician - DAPHNE LGOVER (REF), Referring Physician - VANE QUINTANA JR, [...] Office did not have post-op Appointment and medical administrator said to wait till he puts in his postop note to get appointment. So you will have to call. Where: [address] [place] [address] [address] [place] [address]- Follow Up with Follow up with specialist When Within 1 to 2 weeks Medications What How Much When Instructions Next Dose acetaminophen-hydrocodone (Hurst 7.5 mg-325 mg oral tablet) 1 Tablet(s) [...] including vitamins, herbs, eye drops, creams, and ovbe-uam-yqvrcvw medicines. ??? Any problems you or family [...] 02/26/2017 Document Revised: 02/08/2018 Document Reviewed: 02/26/2017 Hashable Patient Education ?? 2020 [employer]. Sacrocolpopexy Sacrocolpopexy is a surgical procedure that [...] including vitamins, herbs, eye drops, creams, and uvja-yem-uivvrew medicines. ??? Any problems you or family [...] diabetes medicines or blood thinners. ? Taking fvwe-dbh-eknvofu medicines, vitamins, herbs, and supplements. ? Taking [...] 03/03/2014 Document Revised: 02/08/2018 Document Reviewed: 05/24/2017 Hashable Patient Education ?? 2020 [employer]. acetaminophen and hydrocodone (a SEET a MIN oh fen and paula droe KOE done) Hycet, Lorcet, Hurst, Verdrocet, Vicodin, Xodol, Zamicet What is the [...] may report side effects to FDA at 0-129-PKQ-9378. What other drugs will affect acetaminophen and [...] affect acetaminophen and hydrocodone, including prescription and ijsm-mtz-jtmwlsa medicines, vitamins, and herbal products. Not all [...] to ensure that the information provided by [employer]. ('Apprendaum') is accurate, up-to-date, and complete, but no guarantee is made to that effect. Drug information contained herein may be time sensitive. [employer] information has been compiled for use by healthcare practitioners and consumers in the [place] and therefore [employer] does not warrant that uses outside of the [place] are appropriate, unless specifically indicated otherwise. [employer] drug information does not endorse drugs, diagnose patients or recommend therapy. [employer] drug information is an informational resource designed [...] effective or appropriate for any given patient. [employer] does not assume any responsibility for any aspect of healthcare administered with the aid of information [employer] provides. The information contained herein is not intended to cover all possible uses, directions, precautions, warnings, drug interactions, allergic reactions, or adverse effects. If you have questions about the drugs you are taking, check with your doctor, nurse or pharmacist. Copyright 0667-3864 [employer] [facility]. Version: 16.01. Revision Date: 04/02/2019. [...] electrolyte imbalance or vitamin B deficiency; ?? dujxoew-2-aztkpgbpp dehydrogenase (G6PD) deficiency; or ?? any type [...] may report side effects to FDA at 3-389-NMX-7678. What other drugs will affect nitrofurantoin? Other drugs may affect nitrofurantoin, including prescription and wybk-ipi-aetzely medicines, vitamins, and herbal products. Tell your [...] to ensure that the information provided by [employer]. ('Multum') is accurate, up-to-date, and complete, but no guarantee is made to that effect. Drug information contained herein may be time sensitive. [employer] information has been compiled for use by healthcare practitioners and consumers in the [place] and therefore [employer] does not warrant that uses outside of the [place] are appropriate, unless specifically indicated otherwise. [employer] drug information does not endorse drugs, diagnose patients or recommend therapy. [employer] drug information is an informational resource designed [...] effective or appropriate for any given patient. [employer] does not assume any responsibility for any aspect of healthcare administered with the aid of information [employer] provides. The information contained herein is not intended to cover all possible uses, directions, precautions, warnings, drug interactions, allergic reactions, or adverse effects. If you have questions about the drugs you are taking, check with your doctor, nurse or pharmacist. Copyright 0058-3554 [employer]. Version: 9.02. Revision Date: 05/05/2019. polyethylene glycol 3350 (reena ee ETH il een GLYE kol) ClearLax, GaviLAX, Gialax, GlycoLax, MiraLax, NNG5608, SunMark ClearLax What is the most important [...] may report side effects to FDA at 1-317-UIL-8449. What other drugs will affect polyethylene glycol 3350? Other drugs may interact with polyethylene glycol 3350, including prescription and nvhx-lrj-qymeasn medicines, vitamins, and herbal products. Tell each [...] to ensure that the information provided by [employer]. ('Multum') is accurate, up-to-date, and complete, but no guarantee is made to that effect. Drug information contained herein may be time sensitive. [employer] information has been compiled for use by healthcare practitioners and consumers in the [place] and therefore [employer] does not warrant that uses outside of the [place] are appropriate, unless specifically indicated otherwise. [employer] drug information does not endorse drugs, diagnose patients or recommend therapy. [employer] drug information is an informational resource designed [...] effective or appropriate for any given patient. [employer] does not assume any responsibility for any aspect of healthcare administered with the aid of information [employer] provides. The information contained herein is not intended to cover all possible uses, directions, precautions, warnings, drug interactions, allergic reactions, or adverse effects. If you have questions about the drugs you are taking, check with your doctor, nurse or pharmacist. Copyright 7227-6414 [employer]. Version: 2.04. Revision Date: 06/14/2016. docusate (oral/rectal) [...] may report side effects to FDA at 9-018-ZKC-5995. What other drugs will affect docusate? Other drugs may affect docusate, including prescription and vqnn-wbe-pvmlydl medicines, vitamins, and herbal products. Tell your [...] to ensure that the information provided by [employer]. ('Apprendaum') is accurate, up-to-date, and complete, but no guarantee is made to that effect. Drug information contained herein may be time sensitive. [employer] information has been compiled for use by healthcare practitioners and consumers in the [place] and therefore [employer] does not warrant that uses outside of the [place] are appropriate, unless specifically indicated otherwise. [employer] drug information does not endorse drugs, diagnose patients or recommend therapy. [employer] drug information is an informational resource designed [...] effective or appropriate for any given patient. [employer] does not assume any responsibility for any aspect of healthcare administered with the aid of information [employer] provides. The information contained herein is not intended to cover all possible uses, directions, precautions, warnings, drug interactions, allergic reactions, or adverse effects. If you have questions about the drugs you are taking, check with your doctor, nurse or pharmacist. Copyright 5274-3346 [employer]. Version: 4.01. Revision Date: 09/16/2018. Emergency Awareness [...] Assistance with quitting is available by contacting 9-939-UDGQ-NOW. This is a free resource providing counseling, [...] range between ( 1.0 and 7.0 ) [place] #: 0.69 K/uL -- Normal range between ( 0.24 and 0.82 ) [place] #: 0.00 K/uL -- Normal range between ( 0.04 and 0.54 ) [place] %: 6.0 % -- Normal range between [...] was given the opportunity to ask questions. Patient/Director Business Development Name: Patient/Director Business Development Signature: Relationship to Patient: Clinician/Hospital Director Business Development Signature: Date: documented in this encounter Plan of Treatment Not on file documented as of this encounter Visit Diagnoses Not on filedocumented in this encounter
--- OUTSIDE RECORDS SUMMARY | 2024-09-01 15:06 | XMS_ITS | Encounter Summary ---
Author Organization [employer] Address [address] [place] [address] Care Team Providers Care Va Underwriter Name Role Phone Unavailable Primary Care Provider Unavailabl e Encounter Details Date Type Department Care Team (Late st Contact Info) Description 01/20/2020 Transcribed Document [facility] [place] [facility] [place] [address] ProviderAntonia MD [address] [place] [address] Social History Tobacco Use Types [...] - Antonia ProviderMD - 01/20/2020 3:49 AM OCEAN RESCUE LIEUTENANT Admission History, Adult Entered On: 01/20/2020 16:07 [...] #2 Relationship : - Primary Language : Mozambican Communication Barrier : None Tank Terminal Gauger Needed : No Amara Beard Rn - [...] Scale Risk Level : 25-45 Medium Risk [place] Fall Interventions : Adequate lighting, Assistive devices [...] Source : Stated Height Entry Format : [place] Height, Feet : 5 ft(Converted to: 152 cm, 60 Inch) Height, Inches : 6 Inch(Converted to: 0 ft 6 Inch, 15.24 cm) Clinical Height : 167.64 cm Weight Source : Standing scale Weight Entry Format : [place] Clinical Dosing Weight : 86.36 kg Weight, Pounds : 190 lb Body Surface Area (BSA) : 1.96 m2 Body Mass Index : 30.7 kg/m2 (HI) [place] Body Weight : 59 kg Amara Beard [...] History Weight Entry Format Nutrition History : [place] Feeding Ability : Independent Adaptive Feeding Equipment : None Adaptive Feeding Equipment : Regular Oral Medication Administration : By mouth Eating Poorly Due to Decreased Appetite : No Unplanned Weight Loss in Past 3-6 Months : No Malnutrition Screening Tool Total(mal) : 0 Malnutrition Screening Tool Risk Level : Patient not at risk Amara Beard Rn - 01/20/2020 16:03 EST [place] Suicide Severity Rating Scale (C-SSRS) CSSRS Past [...]
--- OUTSIDE RECORDS SUMMARY | 2024-09-01 15:06 | XMS_ITS | Encounter Summary ---
Author Organization [employer] Address [address] [place] [address] Care Team Providers Care Flavor Tank Tender Name Role Phone Unavailable Primary Care Provider Unavailabl e Encounter Details Date Type Department Care Team (Late st Contact Info) Description 01/20/2020 Transcribed Document [facility] [place] [facility] [place] [address] ProviderAntonia MD [facility] [place] [address] Social History Tobacco Use Types [...] - Antonia ProviderMD - 01/20/2020 2:01 PM SEED SORTER Patient: JORGE LANIER Age: 74 Years Sex: [...] and the remainder of the robotic and medical assistant internal medicine trochars were placed. She was noted to [...] the apex of the vagina using interrupted [place]-Saleem suture. Finally we pexed our single arm of the mesh to the anterior spinal ligament overlying the sacral promontory using interrupted [place]-Saleem suture. Excess mesh was excised. We extraperitoneal [...] material or mesh within the urinary bladder. Tsyles catheter was replaced. Copious amounts of irrigation [...] - Start Time: 01/20/20 12:38:00 (01/20/20 12:55:59) Electronically signed by Ashly Hodges Conversion Energy And Sustainability Manager Cerner at 06/29/2022 12:07 PM CDT documented in this encounter Plan of Treatment Not on file documented as of this encounter Visit Diagnoses Not on filedocumented in this encounter
--- OUTSIDE RECORDS SUMMARY | 2024-09-01 15:06 | XMS_ITS | Encounter Summary ---
Author Organization [employer] Address [address] [place] [address] Care Team Providers Care Telephone Directory Distributor Driver Name Role Phone Unavailable Primary Care Provider Unavailabl e Encounter Details Date Type Department Care Team (Late st Contact Info) Description 01/21/2020 Transcribed Document [facility] [place] [facility] [place] [address] ProviderAntonia MD [address] [place], [place] [id number] Social History Tobacco Use Types Packs/Day Years [...] - Historical ProviderMD - 01/21/2020 10:34 AM SERVER MANAGER Attempt to Treat Entered On: 01/21/2020 10:40 [...]
--- OUTSIDE RECORDS SUMMARY | 2024-09-01 15:06 | XMS_ITS | Clinical Summary ---
Author Organization [employer] Address [address] [place] [address] Care Team Providers Care Furnace Converter Name Role Phone Unavailable Primary Care Provider [...]
--- OUTSIDE RECORDS SUMMARY | 2024-09-01 15:06 | XMS_ITS | Encounter Summary ---
Author Organization [employer] Address [address] [place] [address] Care Team Providers Care Ticket Chopper Assembler Name Role Phone Unavailable Primary Care Provider Unavailabl e Encounter Details Date Type Department Care Team (Late st Contact Info) Description 01/21/2020 Transcribed Document [facility] [place] Family Medicine [facility] [place] [address] ProviderAntonia MD [address] [place] [address] Social History Tobacco Use Types [...] - Antonia ProviderMD - 01/21/2020 12:50 PM SUPERVISOR MOLD CLEANING AND STORAGE Nursing Discharge Summary Entered On: 01/21/2020 12:54 [...]
[2024-09-01 16:27] LABS: Thyroid Stimulating Hormone 0.87 uIU/mL (0.465-4.68)
== END 2024-09-01 23:59 | disposition home or self-care (01) ==
LOC: LAB 15:03
PROVIDERS: PCP Family Medicine; Visit Provider Student in an Organized Health Care Education/Training Program
DX: E04.1 Nontoxic single thyroid nodule (principal)
CPT/HCPCS: 36415; 84439; 84443

== ENCOUNTER 2024-09-26 07:25 | Day surgery (SDC) | payer BC, MEDICARE, SELFPAY ==
--- NOTE | 2024-09-26 06:24 | EXP.GEN.HP ---
HPI HPI HPI: Patient presents for follow-up colonoscopy. She has a family history of colon cancer in her father at age 72. I performed colonoscopy on her in March 2015 at which time she had a tubular adenoma. Colonoscopy April 2018 there was a subtle area in the cecum which was removed and actually returned as tubular adenoma and if she had 2 additional tubular adenomas therefore given the adenomatous subtle irregularity Short interval colonoscopy was performed on 09/23/2019. At that time she had a hyperplastic rectal polyp. Colonoscopy on 10/07/2021 revealed sigmoid diverticulosis and hyperplastic appearing rectal polyps. It was recommended if no adenomatous component likely repeat colonoscopy in 5 years. Polyp biopsies were benign. [facility] Disclaimer: The information contained in this section may have been updated after the patient was seen, as this information can be updated by other users. Medical History Hearing loss Restless sleeper Daytime somnolence Fatigue Tachycardia SOB (shortness of breath) HTN (hypertension) Surgical History History of knee replacement Family History Other Colon cancer Social History Smoking Status: Never smoker alcohol intake: never substance use type: denies use current occupational status: other Travel in the last 8 weeks?: Inside the [place] household members: spouse housing: house current occupation: [employer] current occupational exposures/hazards: No caffeine: Yes Have you lived/traveled outside [place] in past 30 days?: No Contact w/someone who lives/traveled outside [place] past 30 days?: No Exposure to someone with infectious disease in past 14 days?: No Do you have a fever (greater than 100.4 F or 38 C)?: No Have you tested positive for COVID-19?: No Exposed to someone with COVID-19 in past 14 days?: No Do you have a sore throat?: No Do you have a cough?: No Do you have any weakness?: No Do you have any diarrhea?: No Are you experiencing any unusual bleeding?: No Do you have any muscle aches/pain?: No Do you have any abdominal pain?: No Are you experiencing loss of taste or smell?: No Other Medical History Have you received the Flu Vaccine for this season: Yes Have you received the Pneumonia Vaccine: Yes Meds Home Medications and Allergies Home Medications ?Medication ?Instructions ?Recorded ?Confirmed ?Type aspirin 81 mg tablet,delayed 81 mg PO QDAY Blood thinner 03/13/17 09/26/24 History release (Adult Low Dose Aspirin) multivitamin 1 cap PO QDAY Supplement 03/13/17 09/26/24 History diclofenac sodium 75 mg 75 mg PO BID 10/11/22 09/26/24 History tablet,delayed release furosemide 20 mg tablet 20 mg PO DAILY PRN Edema 10/11/22 09/26/24 History rosuvastatin 10 mg tablet 10 mg PO DAILY 10/11/22 09/26/24 History bisoprolol fumarate 5 mg tablet 2.5 mg (1/2 x 5 mg) PO QHS bp #90 08/07/24 09/26/24 Rx tabs New Prescriptions to Start Prescriptions: Allergies Allergy/AdvReac Type Severity Reaction Status Date / Time No Known Allergies Allergy Verified 09/26/24 07:57 Exam Constitutional Constitutional: no acute distress *Routine HEENT Exam Head: Present normocephalic Eye: Present EOMI and PERRL ENT: Present mucous membranes moist *Routine Neck Exam Neck: Present supple; Absent lymphadenopathy *Routine Respiratory Exam Respiratory: Present CTA bilaterally *Routine Cardiovascular Exam Cardiovascular: Present RRR *Routine Abdominal Exam Abdominal: Present soft and normoactive bowel sounds; Absent tenderness *Routine Rectal Exam Rectal:: deferred *Routine Genitalia Exam Genitalia:: deferred *Routine Extremities Exam Extremities: Absent cyanosis, clubbing or edema *Routine Skin Exam Skin: Present warm; Absent rash *Routine Neurological Exam Neurological: Present alert and oriented X3 Assessment and Plan *Assessment and plan (1) Colon polyps: Status: Acute Category: Medical Code(s): K63.5 - Polyp of colon Plan Colonoscopy
[2024-09-26 07:53] VITALS: BMI 31.8
[2024-09-26 08:01] VITALS: BP 115/89; PULSE 75; RESP 17; TEMP 36.1; O2SAT 97
[2024-09-26] MEDS: LACTATED RINGERS 1000ML 1,000 ML 50 ML IV (08:08)
--- NOTE | 2024-09-26 08:30 | P.PNANES_ITS ---
[facility] Disclaimer: The information contained in this section may have been updated after the patient was seen, as this information can be updated by other users. Medical History Hearing loss Restless sleeper Daytime somnolence Fatigue Tachycardia SOB (shortness of breath) HTN (hypertension) Surgical History History of knee replacement Family History Other Colon cancer Social History Smoking Status: Never smoker alcohol intake: never substance use type: denies use current occupational status: other Travel in the last 8 weeks?: Inside the [place] household members: spouse housing: house current occupation: [employer] current occupational exposures/hazards: No caffeine: Yes Have you lived/traveled outside [place] in past 30 days?: No Contact w/someone who lives/traveled outside [place] past 30 days?: No Exposure to someone with infectious disease in past 14 days?: No Do you have a fever (greater than 100.4 F or 38 C)?: No Have you tested positive for COVID-19?: No Exposed to someone with COVID-19 in past 14 days?: No Do you have a sore throat?: No Do you have a cough?: No Do you have any weakness?: No Do you have any diarrhea?: No Are you experiencing any unusual bleeding?: No Do you have any muscle aches/pain?: No Do you have any abdominal pain?: No Are you experiencing loss of taste or smell?: No [facility] Anesthesia Checklist Patient Identification Patient Identification: Arm Band and Verbal (Name & ) Structural Data Admitted From: Home Planned Operative Procedure/s: colonoscopy Consent for Planned Operative Procedure(s) Verified: Yes Verified Documents: Surgical Consent NPO Status Verified Time NPO: 00:00 Chart Verification Results Verified: None Additional verifications Anesthesia Reactions: No Hx Blood Transfusions: No Blood Transfusion Reaction: No Airway Assessment Mallampati Score:: Class II C-Spine Mobility Assessed: Yes TMJ Mobility Assessed: Yes Dentition: Good Dentition Neurological Assessment Level of Consciousness: Awake, Alert and Appropriate Hx Seizures: No Numbness or tingling in extremities: No Anesthesia Plan Anesthesia Risk discussed: Yes Anesthesia Plan: Verified ASA Class: II Anesthesia Type: MAC
[2024-09-26 08:44] VITALS: BP 104/57; PULSE 71; RESP 18; TEMP 36.7; O2SAT 98
--- NOTE | 2024-09-26 08:46 | P.PCN_ITS ---
Procedure: Date: 09/26/24 Patient Date of :: 1945 Procedure Performed:: Total colonoscopy to ileocecal valve Indications:: Patient presents for follow-up colonoscopy. She has a family history of colon cancer in her father at age 72. I performed colonoscopy on her in March 2015 at which time she had a tubular adenoma. Colonoscopy April 2018 there was a subtle area in the cecum which was removed and actually returned as tubular adenoma and if she had 2 additional tubular adenomas therefore given the adenomatous subtle irregularity Short interval colonoscopy was performed on 09/23/2019. At that time she had a hyperplastic rectal polyp. Colonoscopy on 10/07/2021 revealed sigmoid diverticulosis and hyperplastic appearing rectal polyps. It was recommended if no adenomatous component likely repeat colonoscopy in 5 years. Polyp biopsies were benign. Performing Provider:: Jayden Panda MD Referring Provider:: Errol Remy MD Sedation:: MAC sedation Procedure:: Patient history was obtained and appropriate physical examination was performed. Patient's medications and allergies were reviewed. Informed consent was obtained after explaining the benefits, alternatives, and risks of the procedure including, but not limited to, bleeding, perforation, missed lesions, and adverse reaction to anesthesia medications. Patient was transported to endoscopy procedure room. Patient was connected to monitoring devices. Throughout the procedure the patient's blood pressure, pulse, and oxygen saturations were monitored continuously. Patient identification and planned procedure were verified by the staff. Patient was positioned in lateral decubitus position. Digital anorectal exam was performed. Variable stiffness Olympus colonoscope was inserted and advanced under direct visualization to the cecum. Adequacy of the colonic preparation was noted. The colonoscope was advanced a short distance into the terminal ileum. The colonoscope was then slowly withdrawn while carefully e xamining the color, texture, anatomy, and integrity of the mucosoa circumferentially. Within the rectum retroflexion was performed. Colonoscope was then withdrawn. Impression: Colonic preparation was good. Prolonged inspection was carried out of the cecum and periappendiceal location. There was no notable pathology. There was rare sigmoid diverticulosis. Minimal internal hemorrhoids. No polyps noted Findings:: Rare sigmoid diverticulosis Minimal internal hemorrhoids Recommendations:: Repeat colonoscopy 5 years given prior history of polyps with family history of colon cancer Complications:: None immediately apparent Estimated blood obtained (mL): 0 Colonoscopy Component Colonoscopy Component Was a colonoscopy performed during today's procedure?: Yes Recommended follow up colonoscopy of at least 10 years?: No If no, follow up colonoscopy recommended in ___ years?: 5 Reason for not recommending >/= 10 yr follow-up interval?: See above
[2024-09-26 08:54] VITALS: BP 114/69; PULSE 67; RESP 16; O2SAT 98
[2024-09-26 09:04] VITALS: BP 111/72; PULSE 64; RESP 16; O2SAT 98
[2024-09-26 09:14] VITALS: BP 118/68; PULSE 64; RESP 16; O2SAT 98
== END 2024-09-26 09:15 | disposition home or self-care (01) ==
PROVIDERS: PCP Family Medicine; Visit Provider Surgery
PROC: 0DJD8ZZ Inspection of Lower Intestinal Tract, Via Natural or Artificial Opening Endoscopic (ICD-10-PCS; CPT 45378; principal; 2024-09-26 08:30)
DX: K57.30 Diverticulosis of large intestine without perforation or abscess without bleeding (principal); K64.8 Other hemorrhoids; H91.90 Unspecified hearing loss, unspecified ear; I10 Essential (primary) hypertension; Z80.0 Family history of malignant neoplasm of digestive organs; Z86.0102 Personal history of hyperplastic colon polyps; Z86.0101 Personal history of adenomatous and serrated colon polyps; Z87.19 Personal history of other diseases of the digestive system; Z79.82 Long term (current) use of aspirin; Z79.1 Long term (current) use of non-steroidal anti-inflammatories (NSAID); Z79.899 Other long term (current) drug therapy
CPT/HCPCS: 45378; J2003; J2704; J7120